=== PATIENT | male | born 1945 | race Caucasian/White ===

== ENCOUNTER → 2017-05-14 | Outpatient (CLI) | payer MEDICARE ==
[2017-05-14 08:04] LABS: Blood Urea Nitrogen 31 mg/dL (9-20); Non-African American GFR(MDRD) >60 (>60 ml/min/1.73 sqM)
--- NOTE | 2017-05-14 09:01 | CT ---
EXAMINATION TYPE: CT soft tissue neck w con DATE OF EXAM: 05/14/2017 HISTORY: Rt parotid cyst that was recently drained per patient. COMPARISON: NONE CT DLP: 769 mGycm. Automated Exposure Control for Dose Reduction was Utilized. TECHNIQUE: CT scan of the neck is performed with IV Contrast, patient injected with 100 mL of Omnipa que 300, axial images are obtained, coronal and sagittal reformatted images are reviewed. FINDINGS: Airway: There is some fullness centrally at level of the hard palate causing narrowing of the nasopha ryngeal airway below the fossa of Rosenmuller. This can be correlated with direct visualization if de sired. No obvious mass identified. Oropharyngeal airway is patent. Region of epiglottis and vallecula appears within normal limits. Hypo pharyngeal airway extending into trachea within normal limits. There is elongation AP diameter of the visualized trachea suggesting underlying COPD. There is mild t o moderate emphysematous change with scattered blebs throughout both lungs. There are slightly suspic ious right paratracheal lymph nodes, for reference is 1.1 x 1.0 cm lymph node on axial image 75. There is heterogeneous partially calcified lower pole right thyroid nodule with substernal extension measuring 1.7 cm on long axis on coronal image 43. Parotid/submandibular glands: In the posterior inferior right parotid gland there is oval lobulated f luid collection with some slightly irregular nodular peripheral enhancement measuring 3.0 cm transver sely by 1.6 cm in AP diameter by 2 cm craniocaudal diameter on axial image 32 and coronal image 44. S anna calcification in the left parotid gland is seen on axial image 24. Submandibular glands are sym metric and felt within normal limits. Carotid/Vascular Structures: There is mild to moderate calcified plaque in the aortic arch with more moderate to severe plaque extending into left subclavian artery causing stenosis just under 50%. Ther e is moderate mixed plaque at left carotid bulb with stenosis greater than 50% felt present seen best on sagittal image 66 and coronal image 50. Osseous Structures: Straightening of cervical spine is seen. There is moderate disc space narrowing a nd spurring C6-C7 level Other: There are scattered prominent but subcentimeter lymph nodes throughout the neck bilaterally. N o definitive greater than 1 cm neck adenopathy is seen. IMPRESSION: 1. There is slightly nodular irregular rim-enhancing fluid collection posterior inferior right paroti d gland, differential includes cystic mass or neoplasm versus infection/abscess as well as other etio logies such as lymphocele or even less likely brachial cleft cyst. Correlation with aspirate obtained during fine-needle aspiration is advised. 2. Note is made of 1.7 cm lower pole right thyroid nodule, follow-up thyroid ultrasound advised to fu rther evaluate and characterize. 3. Note is made of asymmetric moderate to severe plaque left carotid bulb causing significant stenosi s greater than 50% in the left internal carotid artery. This should be confirmed with carotid ultraso und. 4. Mild to moderate emphysematous change in visualized lung apices with borderline abnormal right par atracheal lymph node. No obvious visualized lung nodule or mass but consider follow-up chest CT to ex clude lung nodule or mass in high risk patient.
--- NOTE | 2017-05-14 10:33 | XR ---
Right knee HISTORY: Right knee pain 5 views of the right knee No comparisons There is tricompartmental marginal spurring, joint space loss is present especially in the medial com partment with subchondral sclerosis. Alignment is maintained. IMPRESSION: Osteoarthritis.
--- NOTE | 2017-05-14 10:35 | XR ---
Bilateral hips HISTORY: Bilateral hip pain 2 views of each hip are submitted. No comparisons Alignment, bone mineralization, joint spaces are maintained. IMPRESSION: No significant abnormalities evident.
== END | disposition home or self-care (01) ==
LOC: RADCTMAIN 07:25
PROVIDERS: ATTEND Otolaryngology
DX: E04.1 Nontoxic single thyroid nodule (principal); I65.22 Occlusion and stenosis of left carotid artery
CPT/HCPCS: 82565; 84520; 86235; 73521; 73562; 70491; 36415; Q9967

== ENCOUNTER → 2017-06-05 | Outpatient (CLI) | payer MEDICARE, OTHER ==
[2017-06-05 07:55] LABS: Blood Urea Nitrogen 13 mg/dL (9-20); Non-African American GFR(MDRD) >60 (>60 ml/min/1.73 sqM)
--- NOTE | 2017-06-05 08:47 | CT ---
EXAMINATION TYPE: CT chest wo/w con DATE OF EXAM: 06/05/2017 COMPARISON: CT neck exam May 14, 2017. HISTORY: Pulmonary nodules per order. Recent abnormal neck CT. CT DLP: 1147.9 mGycm. Automated Exposure Control for Dose Reduction was Utilized. TECHNIQUE: CT scan of the thorax is performed following without and with IV Contrast, patient inject ed with 100 mL of Omnipaque 300. FINDINGS: LUNGS: Mild to moderate emphysematous changes redemonstrated with apical scarring and bleb formation. There is redemonstration of AP diameter elongation of the trachea consistent with underlying COPD. T here is bibasilar linear scarring and/or atelectatic change. Mild central peribronchial thickening is consistent with underlying COPD. There is no pleural effusion or pneumothorax seen bilaterally. No s uspicious greater than 5 mm parenchymal nodule or mass is identified bilaterally. No worrisome consol idation or groundglass opacity is seen. MEDIASTINUM: There is redemonstration of 1.1 x 1.0 cm right paratracheal lymph node on axial image 14 . There are some scattered prominent but subcentimeter prevascular, AP window, and pericarinal lymph nodes. No definitive greater than 1 cm thoracic lymph nodes are present. No cardiomegaly or pericard ial effusion is seen. There is moderate left ventricular dilatation and mild to moderate left atrial dilatation. There is stable 1.5 cm heterogeneous posterior lower pole partially calcified right thyro id nodule axial image 10. Coronary artery calcification is present which is noted marker for coronary artery disease. OTHER: There is 7.5 cm simple appearing cyst upper pole level right kidney. There are smaller simple cyst upper pole level left kidney. Liver is hypodense relative to spleen on noncontrast images consis tent with diffuse fatty infiltration. Mild multilevel spurring in thoracic spine is present. IMPRESSION: Mild to moderate underlying emphysematous change without acute pulmonary process. No susp icious nodule or thoracic adenopathy is clearly identified.
== END | disposition home or self-care (01) ==
LOC: RADCTMAIN 07:16
PROVIDERS: ATTEND Otolaryngology
DX: J43.9 Emphysema, unspecified (principal)
CPT/HCPCS: 82565; 84520; 71270; 36415; Q9967

== ENCOUNTER → 2018-04-01 | Outpatient (CLI) | payer MEDICARE, OTHER | END | disposition home or self-care (01) | LOC: LABWHC1 09:54 | PROVIDERS: ATTEND Otolaryngology | DX: K11.7 Disturbances of salivary secretion (principal) | CPT/HCPCS: 36415; 86235 ==

== ENCOUNTER → 2018-04-09 | Outpatient (CLI) | payer MEDICARE, OTHER ==
[2018-04-09 08:14] LABS: Blood Urea Nitrogen 23 mg/dL (9-20)
--- NOTE | 2018-04-09 09:57 | CT ---
EXAMINATION TYPE: CT soft tissue neck w con DATE OF EXAM: 04/09/2018 9:15 AM COMPARISON: 05/14/2017 HISTORY: Localized swelling, mass, lung and neck CT DLP: 921 mGycm Automated exposure control for dose reduction was used. CONTRAST: CT scan of the neck is performed following with IV Contrast, patient injected with 100 ml mL of Isovu e 300. Axial images are obtained, coronal and sagittal reformatted images are reviewed. FINDINGS: Oropharyngeal airway is patent. Region of epiglottis and vallecula appears within normal limits. Hypo pharyngeal airway extending into trachea within normal limits. There is elongation AP diameter of the visualized trachea suggesting underlying COPD. There is mild t o moderate emphysematous change with scattered blebs throughout both lungs. There are slightly suspic ious right paratracheal lymph nodes, for reference is 1.1 x 1.0 cm lymph node which is stable. There is heterogeneous partially calcified lower pole right thyroid nodule with substernal extension measuring 1.7 cm on long axis which is stable. Parotid/submandibular glands: In the posterior inferior right parotid gland there is oval lobulated f luid collection with some slightly irregular nodular peripheral enhancement measuring 4.4 cm transver sely by 2.3 cm in AP diameter by 3.5 cm craniocaudal diameter. Single calcification in the left parot id gland is stable. Submandibular glands are symmetric and felt within normal limits. Carotid/Vascular Structures: There is mild to moderate calcified plaque in the aortic arch with more moderate to severe plaque extending into left subclavian artery causing stenosis just under 50%. Ther e is moderate mixed plaque at left carotid bulb with stenosis greater than 50% felt present. Osseous Structures: Straightening of cervical spine is seen. There is moderate disc space narrowing a nd spurring C6-C7 level Other: There are scattered prominent but subcentimeter lymph nodes throughout the neck bilaterally. N o definitive greater than 1 cm neck adenopathy is seen. IMPRESSION: 1. There is interval increase in size of the cystic right parotid mass now measuring 4.4 x 2.3 x 3.5 cm and previously measuring 3.0 x 1.6 x 2 cm. Shotty adenopathy in the region persists. 2. Stable right thyroid nodule. 3. Persistent atherosclerotic change of the vasculature as discussed above. 4. Correlate for COPD.
== END | disposition home or self-care (01) ==
LOC: RADCTMAIN 07:31
PROVIDERS: ATTEND Otolaryngology
DX: K11.6 Mucocele of salivary gland (principal); R59.0 Localized enlarged lymph nodes; E04.1 Nontoxic single thyroid nodule
CPT/HCPCS: 82565; 84520; 70491; 36415; Q9967

== ENCOUNTER → 2018-04-30 | Outpatient (CLI) | payer MEDICARE, OTHER ==
--- NOTE | 2018-04-30 07:51 | US ---
EXAMINATION TYPE: US thyroid st tissue head/neck DATE OF EXAM: 04/30/2018 COMPARISON: CT dated 04/09/2018 CLINICAL HISTORY: E04.1 Thyroid nodule. GLAND SIZE: Right Lobe: 5.7 x 2.9 x 2.6 cm Overall Parenchyma: heterogenous Left Lobe: 4.6 x 2.1 x 1.9 cm Overall Parenchyma: heterogeneous Isthmus Thickness: 0.5 cm NODULES RIGHT: # of nodules measured on right: 1 1. 1.5 X 1.4 x 1.5 cm echogenic solid nodule at the lower pole with poorly defined margins; . This nodule is wider than tall and shows no intranodular vascularity. Prior size: no prior ultrasound, measures 1.[address] LEFT: # of nodules measured on left: 0 ISTHMUS: # of nodules measured in the isthmus: 0 Bilateral neck scanned, no evidence of lymphadenopathy. Technically difficult exam due to short neck and thyroid extending below sternum. IMPRESSION: 1.5 cm echogenic right thyroid nodule correlates to a BI-RADS 3-mildly suspicious right thyroid nodul e. Recommendations are as follows per consensus criteria: Mildly Suspicious: FNA if ? 2.5 cm; Follow if ? 1.5 cm.
== END | disposition home or self-care (01) ==
LOC: RADUSWWP 06:50
PROVIDERS: ATTEND Otolaryngology
DX: E04.1 Nontoxic single thyroid nodule (principal)
CPT/HCPCS: 76536

== ENCOUNTER → 2018-05-14 | Outpatient (CLI) | payer MEDICARE, OTHER ==
--- NOTE | 2018-05-14 08:17 | MR ---
EXAMINATION TYPE: MR knee RT wo con DATE OF EXAM: 05/14/2018 COMPARISON: None HISTORY: Pain in right knee TECHNIQUE: Multiplanar, multisequence imaging of the right knee is performed without IV contrast. FINDINGS: MEDIAL MENISCUS: There is linear signal and oblique angle extending towards inferior articular surfac e of the posterior horn medial meniscus compatible with a tear. Anterior horn of the medial meniscus is normal. LATERAL MENISCUS: Anterior and posterior horns are intact without tear. CRUCIATE LIGAMENTS: The anterior and posterior cruciate ligaments are intact and unremarkable. COLLATERAL LIGAMENTS: The medial collateral ligament and lateral collateral ligament complex are inta ct and unremarkable. EXTENSOR MECHANISM: Visualized quadriceps and patellar tendons are intact. EFFUSION: Minimal joint effusion may be present. POPLITEAL CYST: No popliteal/thomas cyst. There is a cystic area posterior to the posterior cruciate ligament may be a posterior synovial cyst or meniscal cyst. This is extension towards the posterior t ibia. Some signal abnormality within the posterior tibia is present. Infection is unlikely but should be considered. TRICOMPARTMENT SPACES: There is narrowing of the medial compartment joint space. Lateral compartment joint space has mild narrowing. Patellofemoral joint space is narrowed. CARTILAGE: There is thinning of the articular cartilage. This is greater along the lateral patella an d lateral femoral condyle. Signal abnormality within the anterior femoral condyle is present. BONE MARROW SIGNAL: Signal abnormality is discussed under popliteal cyst and cartilage. No additional abnormal osseous signal is evident. OTHER: No additional significant abnormality is appreciated. IMPRESSION: Oblique tear posterior horn medial meniscus. 2. Minimal joint effusion. 3. Osteoarthritic degenerative change. 4. The osteoarthritic degenerative change along the lateral patella and lateral femoral condyle appea rs more advanced underlying osseous changes are present. 5. Suspected meniscal cyst posterior medial knee. Underlying osseous abnormality at the posterior tib ia is present as well. Other etiologies should be considered including infection.
== END ==
LOC: RADMRIMAIN 06:05
PROVIDERS: ATTEND Orthopaedic Surgery
DX: S83.241A Other tear of medial meniscus, current injury, right knee, initial encounter (principal); M25.461 Effusion, right knee; M17.11 Unilateral primary osteoarthritis, right knee

== ENCOUNTER → 2018-05-25 | Outpatient (CLI) | payer MEDICARE, OTHER ==
[2018-05-25 08:51] LABS: ALT 48 U/L (21-72); AST 27 U/L (17-59); Alkaline Phosphatase 67 U/L (38-126); Anion Gap 10 mmol/L; Blood Urea Nitrogen 19 mg/dL (9-20); Carbon Dioxide 25 mmol/L (22-30); Chloride 106 mmol/L (98-107); Cholesterol 146 mg/dL (<200); Glucose 115 mg/dL (74-99); HDL Cholesterol 38 mg/dL (40-60); LDL Cholesterol,Calculated 77 mg/dL (0-99); Potassium 4.5 mmol/L (3.5-5.1); Sodium 141 mmol/L (137-145); Total Bilirubin 0.4 mg/dL (0.2-1.3); Total Protein 7.6 g/dL (6.3-8.2); Triglycerides 157 mg/dL (<150)
[2018-05-25 17:41] LABS: Hemoglobin A1C 6.2 % (4.0-6.0)
== END | disposition home or self-care (01) ==
LOC: LABWHC1 07:58
PROVIDERS: ATTEND Internal Medicine Endocrinology, Diabetes & Metabolism
DX: E11.65 Type 2 diabetes mellitus with hyperglycemia (principal)
CPT/HCPCS: 36415; 80053; 80061; 82043; 82570; 83036

== ENCOUNTER → 2018-05-28 | Outpatient (CLI) | payer MEDICARE, OTHER ==
[2018-05-28 08:52] LABS: Basophils # (A) 0.1 k/uL (0-0.2); Basophils % (A) 1 %; Eosinophils # (A) 0.2 k/uL (0-0.7); Eosinophils % (A) 2 %; HCT 42.5 % (39.0-53.0); HGB 14.4 gm/dL (13.0-17.5); Lymphocytes # (A) 3.5 k/uL (1.0-4.8); Lymphocytes % (A) 36 %; MCH 29.3 pg (25.0-35.0); MCHC 33.9 g/dL (31.0-37.0); MCV 86.6 fL (80.0-100.0); Mean Platelet Volume 6.2; Monocytes # (A) 0.8 k/uL (0-1.0); Monocytes % (A) 8 %; Neutrophils # (A) 4.9 k/uL (1.3-7.7); Neutrophils % (A) 50 %; Platelet Count 246 k/uL (150-450); RBC 4.91 m/uL (4.30-5.90); RDW 13.8 % (11.5-15.5); WBC 9.7 k/uL (3.8-10.6)
== END | disposition home or self-care (01) ==
LOC: LABPAT 07:55
PROVIDERS: ATTEND Orthopaedic Surgery
DX: Z01.818 Encounter for other preprocedural examination (principal); Z01.812 Encounter for preprocedural laboratory examination; M23.91 Unspecified internal derangement of right knee
CPT/HCPCS: 36415; 85025; 93005

== ENCOUNTER 2018-06-16 08:48 | Day surgery (SDC) | payer MEDICARE, OTHER ==
[2018-06-11 10:43] VITALS: BMI 37.1
--- NOTE | 2018-06-15 14:18 | HP ---
HISTORY AND PHYSICAL DATE OF SURGERY: 06/16/2018 Sharad Moore is a 72-year-old patient seen with progressive right knee pain. We discussed treatment options. He elected to proceed with arthroscopy. Consent was obtained. PAST MEDICAL HISTORY: Hypertension, kex-[id number]-xmpssooih diabetes, gastroesophageal reflux disease, hyperlipidemia. PAST SURGICAL HISTORY: Noncontributory. DAILY MEDICATIONS: Hydrochlorothiazide, metformin, pravastatin. ALLERGIES: None. SOCIAL HISTORY: Patient smokes cigarettes. PHYSICAL EVALUATION OF THE RIGHT KNEE: Range of motion is 0 to 120 degrees. Tenderness medial joint line. Positive medial Gita's, crepitus medial patellofemoral compartments with range of motion. Pain with patellofemoral compression. Ligaments stable. Hip rotation without pain. Distal neurovascular exam intact. RIGHT KNEE RADIOGRAPHS: Radiographs revealed moderate osteoarthritis and MRI of the right knee revealed medial meniscal tear. IMPRESSION: 1. Internal derangement, right knee with medial meniscal tear. 2. Right knee osteoarthritis. PLAN: Right knee arthroscopy with partial meniscectomy and debridement. MMODL / IJN: [id number] /
[~2018-06-16 08:48] MED LIST: HYDROmorphone 0.5 MG/0.5 ML SYRINGE IVP PRN; LACTATED RINGERS 1,000 ML IV SCH; ONDANSETRON 4 MG/2 ML VIAL IVP ONE; ceFAZolin IN SWFI 2 GM/20 ML SYRINGE IVP ONE; fentaNYL (PF) 50 MCG/ML 2 ML AMP IV PRN
[2018-06-16] MEDS ORDERED: LIDOCAINE 1% 20 ML VIAL (10MG/ML) FOR IV START INTRADERMA ONE (09:40)
[2018-06-16 09:55] LABS: Glucose,Whole Blood 122 mg/dL (75-99)
[2018-06-16] MEDS ORDERED: MIDAZOLAM 2 MG/2 ML VIAL ONE (11:27)
[2018-06-16] MEDS ORDERED: LIDOCAINE 1% INJ 10MG/ML (20 ML MDV) ONE (11:27)
[2018-06-16] MEDS ORDERED: SUCCINYLCHOLINE CHLORIDE 100 MG/5 ML SYR IV ONE (11:27)
[2018-06-16] MEDS ORDERED: fentaNYL (PF) 50 MCG/ML 2 ML AMP ONE (11:27)
[2018-06-16] MEDS ORDERED: PROPOFOL 10 MG/ML 20 ML VIAL IV ONE (11:27)
[2018-06-16] MEDS ORDERED: BUPIVACAIN-EPI 0.25%-1:200,000 30 ML VIAL INTRAARTIC ONE ×2 (11:45→11:59)
--- NOTE | 2018-06-16 12:18 | P.OP ---
Date of Procedure: 06/16/18 Preoperative Diagnosis: Internal derangement right knee Postoperative Diagnosis: 1. Tear medial and lateral meniscus right knee 2. Grade 3 chondromalacia medial femoral condyle right knee 3. Grade 2 chondromalacia lateral femoral condyle right knee 4. Grade 3 chondromalacia patella right knee 5. Reactive synovitis medial, lateral and suprapatellar compartments right knee Procedure(s) Performed: 1. Arthroscopic partial medial and lateral meniscectomy 2. Arthroscopic chondroplasty medial femoral condyle right knee 3. Arthroscopic chondroplasty lateral femoral condyle right knee 4. Arthroscopic chondroplasty patella right knee 5. Arthroscopic partial synovectomy medial, lateral and suprapatellar compartments right knee Anesthesia: GETA, local Surgeon: Abelino Velazquez Estimated Blood Loss (ml): 5 Pathology: none sent Condition: stable Disposition: PACU Indications for Procedure: 72-year-old patient seen with progressive right knee pain. After having treatment options discussed, he elected to proceed with arthroscopy. Operative Findings: See description of procedure Description of Procedure: Patient was taken to the operative suite. Patient underwent a general anesthetic by the department of anesthesia. Patient was given preoperative antibiotics. The right lower extremity was placed in a well-padded arthroscopic leg wolf. The right leg was prepped and draped in the normal sterile orthopedic fashion. A lateral parapatellar and suprapatellar incision was made. Trochars were inserted. Arthroscopy was initiated. Suprapatellar pouch revealed diffuse thick reactive synovitis. The patellofemoral joint appeared to articulate congruently. There was grade 3 chondromalacia of the patella with some osteochondral tears present. The scope was guided into the medial gutter. No loose bodies or plica were identified. The scope was then guided into the medial compartment. A medial parapatellar incision was made. Trocar inserted followed by probe. There was a complex tear involving the posterior horn medial meniscus. There were grade 3 chondromalacia changes of the lateral femoral condyle with osteochondral tears present. There was diffuse thick reactive synovitis anteriorly. I performed a partial medial meniscectomy down to stable tissue. I performed a chondroplasty of the medial femoral condyle down to stable tissue. I performed a partial synovectomy decompressing the reactive synovitis. The residual meniscus was stable. The residual osteochondral surface was stable. There was good decompression of the synovitis. Scope and probe were then guided into the intercondylar notch. Cruciates were identified, probed and found to be stable. The scope and probe were then guided into lateral compartment. There was a radial tear midbody lateral meniscus. There were grade 2 chondromalacia changes of the lateral femoral condyle with osteochondral tears. There was reactive synovitis anteriorly. I performed a partial lateral meniscectomy down to stable tissue. I performed a chondroplasty of the lateral femoral condyle down to stable tissue. I performed a partial synovectomy decompressing the reactive synovitis. The residual meniscus and osteochondral surface was stable. There was good decompression of the synovitis. The scope was in guided back into the suprapatellar compartment. I introduced a motorized shaver into the suprapatellar compartment. I debrided some piecemeal fragments of meniscus I encountered. I performed a chondroplasty of the patella down to stable tissue. I performed a partial synovectomy decompressing the reactive synovitis within the suprapatellar compartment. The shaver was removed. The residual osteochondral surface of the patella was stable. I took one more look on the entire knee, no residual debris. Instruments were now removed from the joint. The joint was infiltrated with .25% Marcaine. Steri-Strips were applied to the portal sites. Sterile dressings were applied. The patient was placed into a [place] hose. No tourniquet was utilized. The patient was awakened, transferred to a bed and taken to recovery stable satisfactory condition.
[2018-06-16 12:26] VITALS: TEMP 97
[2018-06-16 12:40] VITALS: RESP 16
[2018-06-16 13:09] VITALS: PULSE 61
[2018-06-16 13:11] LABS: Glucose,Whole Blood 107 mg/dL (75-99)
[2018-06-16 14:09] VITALS: BP 127/74
== END 2018-06-16 14:45 | disposition home or self-care (01) ==
LOC: OR 08:48
PROVIDERS: ATTEND Orthopaedic Surgery
DX: S83.241A Other tear of medial meniscus, current injury, right knee, initial encounter (principal); S83.281A Other tear of lateral meniscus, current injury, right knee, initial encounter; X58.XXXA Exposure to other specified factors, initial encounter; M22.41 Chondromalacia patellae, right knee; M65.861 Other synovitis and tenosynovitis, right lower leg; I10 Essential (primary) hypertension; E11.9 Type 2 diabetes mellitus without complications; Z79.84 Long term (current) use of oral hypoglycemic drugs; K21.9 Gastro-esophageal reflux disease without esophagitis; F17.210 Nicotine dependence, cigarettes, uncomplicated; G47.33 Obstructive sleep apnea (adult) (pediatric); E78.5 Hyperlipidemia, unspecified; Z79.899 Other long term (current) drug therapy; Z79.1 Long term (current) use of non-steroidal anti-inflammatories (NSAID)
CPT/HCPCS: 29880; J2250; J2405; J2001; J3010; J0330; J2704; J1170; J0690

== ENCOUNTER → 2020-05-17 | Outpatient (CLI) | payer MEDICARE, OTHER ==
--- NOTE | 2020-05-17 13:23 | US ---
EXAMINATION TYPE: US thyroid st tissue head/neck DATE OF EXAM: 05/17/2020 COMPARISON: US 04/30/18 CLINICAL HISTORY: E04.1 thyroid nodule. GLAND SIZE: Right Lobe: 4.1 x 1.9 cm. cm Left Lobe: 4.8 x 2.4 cm Isthmus Thickness: 0.4 cm NODULES RIGHT: # of nodules measured on right: 2 1. 1.3 X 1.0 x 1.0 cm isoechoic nodule at the lower pole with poorly defined margins; . This nodul e is wider than tall and shows no intranodular vascularity. Prior size: 1.5 x 1.4 x 1.5 cm 2. 0.6 X 0.5 x 0.4 cm hypoechoic solid nodule at the upper pole with poorly defined margins; . This nodule is wider than tall and shows intranodular vascularity. Prior size: Not seen previously LEFT: # of nodules measured on left: 0 ISTHMUS: # of nodules measured in the isthmus: 0 Bilateral neck scanned, no evidence of lymphadenopathy. IMPRESSION: Dominant right thyroid nodule stable in size relative to the prior exam.
== END | disposition home or self-care (01) ==
LOC: RADUSWWP 12:47
PROVIDERS: ATTEND Otolaryngology
DX: E04.1 Nontoxic single thyroid nodule (principal)
CPT/HCPCS: 76536

== ENCOUNTER 2020-06-25 22:04 | Inpatient (IN) | payer MEDICARE, OTHER ==
[2020-06-25] MEDS ORDERED: DEXTROSE 5% IN WATER 100 ML with AMIODARONE 150 MG IV ONE (22:24)
[2020-06-25 22:26] LABS: Glucose,Whole Blood 388 mg/dL (75-99)
[2020-06-25] MEDS: MIDAZOLAM 1 MG/ML 5 ML VIAL IV PRN ×2 (22:33→23:54)
[2020-06-25] MEDS: DEXTROSE 5% IN WATER 250 ML with AMIODARONE 300 MG IV ONE ×2 (22:34→23:32)
[2020-06-25 22:40] LABS: ABG Base Excess -19.7 mmol/L; ABG HCO3 14 mmol/L (21-25); ABG Oxygen Saturation 95.3 % (94-97); ABG PO2 143 mmHg (83-108); ABG TCO2 16 mmol/L (19-24); Allen Test Performed? Yes
--- NOTE | 2020-06-25 22:41 | XR ---
EXAMINATION TYPE: XR chest 1V portable DATE OF EXAM: 06/25/2020 COMPARISON: NONE HISTORY: Cardiac arrest TECHNIQUE: Single view FINDINGS: Heart is enlarged. There is diffuse pulmonary edema. Endotracheal tube is 3.5 cm from the c caden. There are chest leads. IMPRESSION: Moderately severe pulmonary edema is consistent with acute heart failure.
[2020-06-25] MEDS ORDERED: AMIODARONE 360 MG in DEXTROSE 5% IN WATER 200 ML IV ONE ×2 (22:43)
[2020-06-25 22:46] LABS: HCT 50.8 % (39.0-53.0); HGB 15.6 gm/dL (13.0-17.5); Hypochromasia Marked; MCH 28.8 pg (25.0-35.0); MCHC 30.8 g/dL (31.0-37.0); Mean Platelet Volume 7.9; Platelet Count 188 k/uL (150-450); RBC 5.43 m/uL (4.30-5.90); RDW 13.8 % (11.5-15.5); WBC 16.9 k/uL (3.8-10.6)
[2020-06-25 22:55] LABS: Albumin 3.9 g/dL (3.5-5.0); Calcium 9.7 mg/dL (8.4-10.2); Total Bilirubin 0.5 mg/dL (0.2-1.3); Total Protein 7.5 g/dL (6.3-8.2)
[2020-06-25 22:57] LABS: MCV 93.5 fL (80.0-100.0)
[2020-06-25 22:58] LABS: Partial Thromboplastin Time 30.1 sec (22.0-30.0); Prothrombin Time 10.6 sec (9.0-12.0)
[2020-06-25] MEDS ORDERED: EPINEPHrine 10 ML SYRINGE (0.1 MG/ML) ONE (23:00)
[2020-06-25] MEDS ORDERED: MIDAZOLAM 1 MG/ML 5 ML VIAL ONE (23:00)
[2020-06-25 23:11] LABS: Eosinophils # (M) 0.17 k/uL (0-0.7); Lymphocytes # (M) 11.15 k/uL (1.0-4.8); Monocytes # (M) 1.69 k/uL (0-1.0); Neutrophils # (M) 3.89 k/uL (1.3-7.7); Neutrophils % (M) 23 %; Nucleated Red Blood Cells 0 /100 WBC (0-0); Total Cells Counted 100
[2020-06-25] MEDS: fentaNYL (PF) 1,000 MCG in SODIUM CHLORIDE 0.9% 80 ML IV SCH (23:17)
--- NOTE | 2020-06-25 23:22 | CT ---
EXAMINATION TYPE: CT brain wo con DATE OF EXAM: 06/25/2020 COMPARISON: None HISTORY: Cardiac arrest, ams CT DLP: 1170.4 mGycm Automated exposure control for dose reduction was used. There is cerebral cortical atrophy. There is no mass effect nor midline shift. There is no sign of in tracranial hemorrhage. Calvarium is intact. There is mucosal thickening left side of the sphenoid sin us. This is consistent with sinusitis. I see no focal bone destruction. IMPRESSION: Cerebral atrophy. No acute intracranial abnormality.
[2020-06-25] MEDS ORDERED: NOREPINEPHRINE 32 MG in SODIUM CHLORIDE 0.9% 218 ML IV ONE (23:23)
[2020-06-25] MEDS ORDERED: NOREPINEPHRINE 4 MG in SODIUM CHLORIDE 0.9% 250 ML IV ONE (23:31)
--- NOTE | 2020-06-25 23:31 | ED ---
CPR HPI - General Stated Complaint: CPR - History of Present Illness Initial Comments: Sharad is a 74 yo male who is brought to the ER today via EMS with CPR in progress. Per EMS they were called for shortness of breath. Upon their arrival the patient was diaphoretic hypoxic with oxygen saturations in the 60s, he was placed on CPAP with minimal improvement in route to the hospital he became more hypoxic bradycardic and then lost pulses. CPR was initiated approximately 2 min utes prior to arrival in the emergency department. - Related Data Home Medications Medication Instructions Recorded Confirmed Aspirin [Adult Low Dose Aspirin EC] 81 mg PO DAILY 06/11/18 06/25/20 Cetirizine HCl 10 mg PO DAILY 06/11/18 06/25/20 HYDROcodone/APAP 7.5-325MG [[place] 1 tab PO TID PRN 06/11/18 06/25/20 7.5-325] Ibuprofen 800 mg PO Q6HR PRN 06/11/18 06/25/20 Losartan Potassium 100 mg PO DAILY 06/11/18 06/25/20 Montelukast [Singulair] 10 mg PO HS 06/11/18 06/25/20 Omeprazole 20 mg PO DAILY 06/11/18 06/25/20 Pravastatin Sodium [Pravachol] 10 mg PO HS 06/11/18 06/25/20 amLODIPine BESYLATE [Norvasc] 10 mg PO DAILY 06/11/18 06/25/20 glipiZIDE [Glucotrol] 10 mg PO TID 06/11/18 06/25/20 metFORMIN HCL 1,000 mg PO BID 06/11/18 06/25/20 Glucosam/Chond/Hyalu/Cf Borate 2 tab PO DAILY 06/25/20 06/25/20 [Move Free [facility] Tablet] L.acidoph,Paracasei, B.lactis 1 cap PO DAILY 06/25/20 06/25/20 [Probiotic] [place]-3 Fatty Acids/Fish Oil [Fish 2 cap PO DAILY 06/25/20 06/25/20 Oil 1,000 mg Softgel] Ranitidine HCl [Zantac] 300 mg PO HS 06/25/20 06/25/20 hydroCHLOROthiazide 25 mg PO DAILY 06/25/20 06/25/20 Allergies Allergy/AdvReac Type Severity Reaction Status Date / Time No Known Allergies Allergy Verified 06/16/18 09:33 Review of Systems ROS Statement: Those systems with pertinent positive or pertinent negative responses have been documented in the HPI. ROS Other: All systems not noted in ROS Statement are negative. Past Medical History Past Medical History: Diabetes Mellitus, GERD/Reflux, Hyperlipidemia, Hypertension, Osteoarthritis (OA), Pulmonary Embolus (PE), Sleep Apnea/CPAP/BIPAP Additional Past Medical History / Comment(s): uses CPAP; PE about 8 yrs ago History of Any Multi-Drug Resistant Organisms: None Reported Past Surgical History: Heart Catheterization, Orthopedic Surgery Additional Past Surgical History / Comment(s): Cataracts, Colonoscopy; L knee scope Past Anesthesia/Blood Transfusion Reactions: No Reported Reaction Past Psychological History: No Psychological Hx Reported Past Alcohol Use History: Rare Additional Past Alcohol Use History / Comment(s): quit smoking 5 years ago; prev. smoked from teens until 67 yrs old 1-2 ppd Past Drug Use History: None Reported - Past Family History Mother Family Medical History: No Reported History General Exam - General Exam Comments Initial Comments: Physical Exam GENERAL: Unresponsive, cyanotic HENT: Normocephalic, Atraumatic. EYES: Pupils 5 mm unreactive PULMONARY: Crackles in all lung clark CARDIOVASCULAR: Pulseless upon arrival ABDOMEN: Soft and nontender with normal bowel sounds. SKIN: Cyanotic : Normal external genitalia, circumcised NEUROLOGIC: Unresponsive Did have gag MUSCULOSKELETAL: No significant edema PSYCHIATRIC: Unresponsive AFTER ROSC Physical Exam GENERAL: Intubated, requiring sedation HENT: Normocephalic, Atraumatic. EYES: Pupils reactive PULMONARY: Ventilator sounds Crrackles in all lung clark CARDIOVASCULAR: Irregular ABDOMEN: Obese SKIN: Skin is clear with no lesions or rashes and otherwise unremarkable. : Normal external genitalia NEUROLOGIC: Requiring sedation, moving extremities, coughing Sedated for intubation MUSCULOSKELETAL: No significant edema PSYCHIATRIC: Unable to assess Course Vital Signs 06/25/20 06/25/20 06/25/20 22:06 22:26 22:43 Temperature 97.5 F L Pulse Rate [ 76 60 Irrigation Supervisor ] Respiratory 12 17 Rate Blood Pressure 140/84 110/63 [Right Arm] O2 Sat by Pulse 88 L 95 Oximetry 06/25/20 06/25/20 06/25/20 23:00 23:20 23:30 Temperature 97.7 F Pulse Rate [ 67 80 77 Irrigation Supervisor ] Respiratory 19 23 22 Rate Blood Pressure 98/56 90/52 83/50 [Right Arm] O2 Sat by Pulse 97 96 96 Oximetry 06/26/20 06/26/20 00:00 00:15 Temperature 97.8 F Pulse Rate [ 74 72 Irrigation Supervisor ] Respiratory 25 H 25 H Rate Blood Pressure 91/63 91/63 [Right Arm] O2 Sat by Pulse 94 L 94 L Oximetry Procedures - [place] Protocol (Time Out) Procedure Performed:: central line Performing Provider: Kyung Zarate Nurse: Allie Lopez Timeout Date: 06/26/20 Timeout Time: 01:10 Patient Identification (2 identifiers required): Chart, Arm Band Site: right IJ Site Marked: Yes Final Confirmation: Procedure, Site, Laterality, Patient Position, Special Equipment - ABG Interpretation Ph: 6.87 PCO2: 74 PO2: 143 Bicarbonate: 14 Interpretation: respiratory acidosis - Central Line Placement Right IJ Consent Obtained: verbal consent (From at bedside) Patient Placed on Monitor/Pulse Ox: Yes MD Prep: mask, gown, gloves Central Line Prep: Chlorhexidine scrub, sterile drapes applied Local Anesthesia Used: Lidocaine 1% Amount of Anesthesia Used (mls): 3 Ultrasound Used for Placement: Yes Central Line Lumen Inserted: triple Bloods Obtained for Lab: No Central Line Position: good blood return, all ports aspirated, flushed, capped, sutured in place with 3-0 nylon Dressing Applied: Tegaderm Post Procedure X-Ray: tip of catheter in good position Patient Tolerated Procedure: well Complications: none - Intubation Laryngoscope: fiber optic video scope Assist Device Used: fiber optic device ET Tube Size: 7.5 ET Tube Uncuffed: No Tube Secured Depth (cm): 23 Tube Secured Location: teeth Tube Placement Confirmation: visualized tube passing through cords, equal breath sounds bilaterally, no breath sounds over epigastrium, confirmation by capnometry Patient Tolerated Procedure: well - IO Right Consent Obtained: emergent situation IO Instrument Used to Penetrate the Cortex: battery powered IO drill Complications: none Medical Decision Making - Medical Decision Making The patient was seen and evaluated immediately upon arrival the emergency department Patient had called 911 for shortness of breath on EMS arrival he was hypoxic in route he bradyed down and lost pulses CPR was initiated he received 1 dose of ep inephrine prior to arrival in the emergency department however in transfer from EMS [facility] to [facility] his IV access was removed On arrival in the emergency department resuscitation was continued per ACLS protocol Definitive airway was established with a 75 ET tube, there was an airway obstruction noted, patient's dentures were in the back of his mouth obstructing the airway. Those were removed prior to intubation. Due to lack of IV access a right tibial IO was placed and a single dose of epinephrine was given through this IO Return of spontaneous circulation was noted after epinephrine and approximately 8 minutes of CPR Oxygenation was noted to be improving after intubation Bedside ultrasound reveals good cardiac motion, no dilatation of the right ventricle to indicate a massive her submassive pulmonary embolism - therefore we will await imaging before we start any heparin or consider TPA She was noted to have dysrhythmia on the EKG concerning for A. fib, amiodarone was ordered for post resuscitation arrhythmia Patient remained hemodynamically stable and was transferred to CT for imaging. CT imaging revealed no pulmonary embolism, evidence of severe pulmonary edema was noted CT of the brain revealed no evidence of acute intracranial pathology no bleeds Heart failure pathway was initiated The patient was noted to become hypotensive, peripheral vasopressors were initiated Events of hospitalization and need for central access were discussed with the and daughter bedside who consent to any necessary procedures A right IJ central line was placed without complication, pressors continued to be infused The right tibial IO was removed and dressing was placed Troponin had not resulted however decision was made to initiate treatment with heparin given that the patient had dysrhythmias after CPR Patient care was discussed with the laborer tan house Dr. Grey who accepts the patient to the ICU Patient care was discussed with Dr. Rai who accepts the admission Patient was transferred to ICU with levophed, Heparin, Amiodarone - Lab Data Result diagrams: 06/25/20 22:36 06/25/20 22:36 Lab Results 06/25/20 06/25/20 06/25/20 Range/Units 22:25 22:31 22:36 WBC 16.9 H (3.8-10.6) k/uL RBC 5.43 (4.30-5.90) m/uL Hgb 15.6 (13.0-17.5) gm/dL Hct 50.8 (39.0-53.0) % MCV 93.5 D (80.0-100.0) fL MCH 28.8 (25.0-35.0) pg MCHC 30.8 L (31.0-37.0) g/dL RDW 13.8 (11.5-15.5) % Plt Count 188 (150-450) k/uL Neutrophils % (Manual) 23 % Lymphocytes % (Manual) 66 % Monocytes % (Manual) 10 % Eosinophils % (Manual) 1 % Neutrophils # (Manual) 3.89 (1.3-7.7) k/uL Lymphocytes # (Manual) 11.15 H (1.0-4.8) k/uL Monocytes # (Manual) 1.69 H (0-1.0) k/uL Eosinophils # (Manual) 0.17 (0-0.7) k/uL Nucleated RBCs 0 (0-0) /100 WBC Manual Slide Review Performed Hypochromasia Marked PT (9.0-12.0) sec INR (<1.2) APTT (22.0-30.0) sec Sample Site lbrac ABG pH 6.87 L* (7.35-7.45) ABG pCO2 74 H* (35-45) mmHg ABG pO2 143 H (83-108) mmHg ABG HCO3 14 L (21-25) mmol/L ABG Total CO2 16 L (19-24) mmol/L ABG O2 Saturation 95.3 (94-97) % ABG Base Excess -19.7 mmol/L Abdirizak Test Yes FiO2 100 % Sodium (137-145) mmol/L Potassium (3.5-5.1) mmol/L Chloride (98-107) mmol/L Carbon Dioxide (22-30) mmol/L Anion Gap mmol/L BUN (9-20) mg/dL Creatinine (0.66-1.25) mg/dL Est GFR (CKD-EPI)AfAm (>60 ml/min/1.73 sqM) Est GFR (CKD-EPI)NonAf (>60 ml/min/1.73 sqM) Glucose (74-99) mg/dL POC Glucose (mg/dL) 388 H (75-99) mg/dL POC Glu Housekeeper Home ID Skylar Mcdonald Calcium (8.4-10.2) mg/dL Magnesium (1.6-2.3) mg/dL Total Bilirubin (0.2-1.3) mg/dL AST (17-59) U/L ALT (4-49) U/L Alkaline Phosphatase (38-126) U/L Troponin I (0.000-0.034) ng/mL NT-Pro-B Natriuret Pep pg/mL Total Protein (6.3-8.2) g/dL Albumin (3.5-5.0) g/dL 06/25/20 06/25/20 06/25/20 Range/Units 22:36 22:36 22:36 WBC (3.8-10.6) k/uL RBC (4.30-5.90) m/uL Hgb (13.0-17.5) gm/dL Hct (39.0-53.0) % MCV (80.0-100.0) fL MCH (25.0-35.0) pg MCHC (31.0-37.0) g/dL RDW (11.5-15.5) % Plt Count (150-450) k/uL Neutrophils % (Manual) % Lymphocytes % (Manual) % Monocytes % (Manual) % Eosinophils % (Manual) % Neutrophils # (Manual) (1.3-7.7) k/uL Lymphocytes # (Manual) (1.0-4.8) k/uL Monocytes # (Manual) (0-1.0) k/uL Eosinophils # (Manual) (0-0.7) k/uL Nucleated RBCs (0-0) /100 WBC Manual Slide Review Hypochromasia PT 10.6 (9.0-12.0) sec INR 1.0 (<1.2) APTT 30.1 H (22.0-30.0) sec Sample Site ABG pH (7.35-7.45) ABG pCO2 (35-45) mmHg ABG pO2 (83-108) mmHg ABG HCO3 (21-25) mmol/L ABG Total CO2 (19-24) mmol/L ABG O2 Saturation (94-97) % ABG Base Excess mmol/L Abdirizak Test FiO2 % Sodium 138 (137-145) mmol/L Potassium 5.0 (3.5-5.1) mmol/L Chloride 106 (98-107) mmol/L Carbon Dioxide 13 L (22-30) mmol/L Anion Gap 19 mmol/L BUN 21 H (9-20) mg/dL Creatinine 1.20 (0.66-1.25) mg/dL Est GFR (CKD-EPI)AfAm 70 (>60 ml/min/1.73 sqM) Est GFR (CKD-EPI)NonAf 60 (>60 ml/min/1.73 sqM) Glucose 324 H (74-99) mg/dL POC Glucose (mg/dL) (75-99) mg/dL POC Glu Housekeeper Home ID Calcium 9.7 (8.4-10.2) mg/dL Magnesium 2.0 (1.6-2.3) mg/dL Total Bilirubin 0.5 (0.2-1.3) mg/dL AST 40 (17-59) U/L ALT 31 (4-49) U/L Alkaline Phosphatase 96 (38-126) U/L Troponin I 0.017 (0.000-0.034) ng/mL NT-Pro-B Natriuret Pep pg/mL Total Protein 7.5 (6.3-8.2) g/dL Albumin 3.9 (3.5-5.0) g/dL 06/25/20 Range/Units 22:36 WBC (3.8-10.6) k/uL RBC (4.30-5.90) m/uL Hgb (13.0-17.5) gm/dL Hct (39.0-53.0) % MCV (80.0-100.0) fL MCH (25.0-35.0) pg MCHC (31.0-37.0) g/dL RDW (11.5-15.5) % Plt Count (150-450) k/uL Neutrophils % (Manual) % Lymphocytes % (Manual) % Monocytes % (Manual) % Eosinophils % (Manual) % Neutrophils # (Manual) (1.3-7.7) k/uL Lymphocytes # (Manual) (1.0-4.8) k/uL Monocytes # (Manual) (0-1.0) k/uL Eosinophils # (Manual) (0-0.7) k/uL Nucleated RBCs (0-0) /100 WBC Manual Slide Review Hypochromasia PT (9.0-12.0) sec INR (<1.2) APTT (22.0-30.0) sec Sample Site ABG pH (7.35-7.45) ABG pCO2 (35-45) mmHg ABG pO2 (83-108) mmHg ABG HCO3 (21-25) mmol/L ABG Total CO2 (19-24) mmol/L ABG O2 Saturation (94-97) % ABG Base Excess mmol/L Abdirizak Test FiO2 % Sodium (137-145) mmol/L Potassium (3.5-5.1) mmol/L Chloride (98-107) mmol/L Carbon Dioxide (22-30) mmol/L Anion Gap mmol/L BUN (9-20) mg/dL Creatinine (0.66-1.25) mg/dL Est GFR (CKD-EPI)AfAm (>60 ml/min/1.73 sqM) Est GFR (CKD-EPI)NonAf (>60 ml/min/1.73 sqM) Glucose (74-99) mg/dL POC Glucose (mg/dL) (75-99) mg/dL POC Glu Housekeeper Home ID Calcium (8.4-10.2) mg/dL Magnesium (1.6-2.3) mg/dL Total Bilirubin (0.2-1.3) mg/dL AST (17-59) U/L ALT (4-49) U/L Alkaline Phosphatase (38-126) U/L Troponin I (0.000-0.034) ng/mL NT-Pro-B Natriuret Pep 951 pg/mL Total Protein (6.3-8.2) g/dL Albumin (3.5-5.0) g/dL Critical Care Time Critical Care Time: Yes Total Critical Care Time: 90 Critical Care Time: Critical Care Time 90 min Critical care time was exclusive of separately billable procedures and treating other patients and teaching time. Critical care was necessary to treat or prevent imminent or life-threatening deterioration. Given the critical condition in which the patient arrived, the patient was immediately assessed by myself and the nurse, and cardiac monitoring initiated due to the potential for rapid decompensation of the patient's clinical condition. During the course of the patients stay, I spent a considerable amount of time at the bedside performing serial re-evaluations of the patient's hemodynamic and clinical status because of the recognized potential threat to life or limb in this condition. I then had a chance to review not only all of the available current laboratory and radiographic studies obtained today, but I also reviewed old records available to me at the time. Additionally, any ancil jeancarlos information available including retail branch manager records were reviewed. Sequential vital signs were obtained. Disposition Clinical Impression: Cardiac arrest, Acute respiratory failure Disposition: ADMITTED IP TO THIS HOSP Condition: Critical Is patient prescribed a controlled substance at d/c from ED?: No
--- NOTE | 2020-06-25 23:36 | CT ---
EXAMINATION TYPE: CT chest angio for PE DATE OF EXAM: 06/25/2020 COMPARISON: HISTORY: AMS, respiratory distress, cpr CT DLP: 956.7 mGycm Automated exposure control for dose reduction was used. CONTRAST: Performed with IV Contrast, patient injected with 100 mL of Isovue 370. There are 3-D post processed images. There is endotracheal tube noted. There is extensive bilateral airspace right consistent with pulmona ry airspace edema. There is atelectasis and airspace consolidation posterior lung clark bilaterally. There is small right pleural effusion. Heart is enlarged. There is no pericardial effusion. I see no filling defects in the pulmonary arteri es. There are no hilar masses. There is no mediastinal adenopathy. Thoracic aorta appears intact. The re is no aneurysm. Bony thorax is intact. Sternum is intact. Exam limited slightly by motion. I see no rib fracture. IMPRESSION: Moderately severe pulmonary edema consistent with acute heart failure or RDS. No evidence of pulmonary embolism.
[2020-06-26] MEDS ORDERED: NALOXONE 0.4 MG/ML 1 ML VIAL IV PRN (00:14)
--- NOTE | 2020-06-26 00:36 | XR ---
EXAMINATION TYPE: XR chest 1V confirm line [facility] DATE OF EXAM: 06/26/2020 COMPARISON: Yesterday HISTORY: Check tube placement TECHNIQUE: FINDINGS: There is nasogastric tube with the tip in the gastric fundus. There is moderately severe pu lmonary edema. There are chest leads. Endotracheal tube is 3.5 cm from the sina. IMPRESSION: NG tube is in the stomach. There is severe pulmonary edema unchanged.
[2020-06-26] MEDS ORDERED: HEPARIN SODIUM,PORCINE 5,000 UNIT/ML 1 ML VIAL IV ONE (01:00)
[2020-06-26] MEDS: FUROSEMIDE 10 MG/ML 4 ML VIAL IV SCH ×4 (01:10→23:46)
[2020-06-26] MEDS: MIDAZOLAM 1 MG/ML 5 ML VIAL IV PRN (01:19)
--- NOTE | 2020-06-26 01:33 | XR ---
EXAMINATION TYPE: XR chest 1V DATE OF EXAM: 06/26/2020 COMPARISON: Today HISTORY: Check line placement TECHNIQUE: FINDINGS: There is moderately severe pulmonary edema. Heart is enlarged. There is nasogastric tube in the stomach. There is right jugular catheter with tip in the superior vena cava. Endotracheal tube i s probably a 4 cm from the sina. There are chest leads. IMPRESSION: Severe pulmonary edema unchanged.
[2020-06-26 02:29] LABS: Glucose,Whole Blood 346 mg/dL (75-99)
[2020-06-26] MEDS: HEPARIN SOD,PORK IN 0.45% NACL 25,000 UNIT in 0.45% NACL 1 250ML.BAG IV SCH ×2 (02:45→22:14)
[2020-06-26 03:39] LABS: Appearance,Urine Cloudy (Clear); Bacteria,Urine Rare /hpf; Bilirubin,Urine Negative (Negative); Blood,Urine Moderate (Negative); Budding Yeast,Urine Rare /hpf; Color,Urine Yellow; Glucose,Urine (UA) 1+ (Negative); Granular Casts,Urine 1 /lpf (0); Hyaline Casts,Urine 7 /lpf (0-2); Ketones,Urine Negative (Negative); Leukocyte Esterase,Urine Negative (Negative); Mucus,Urine Occasional /hpf; Nitrite,Urine Negative (Negative); PH, Urine 5.5 (5.0-8.0); Protein,Urine 2+ (Negative); RBC,Urine 39 /hpf (0-5); Sperm,Urine Rare /hpf; Squamous Epithelial Cell,Urine <1 /hpf (0-4); WBC,Urine 61 /hpf (0-5)
[2020-06-26] MEDS: AMIODARONE 300 MG in DEXTROSE 5% IN WATER 250 ML IV SCH ×4 (04:45→18:56)
[2020-06-26] MEDS: fentaNYL (PF) 1,000 MCG in SODIUM CHLORIDE 0.9% 80 ML IV SCH (06:08)
--- NOTE | 2020-06-26 08:24 | P.CRDCN ---
History of Present Illness Consult date: 06/26/20 Chief complaint: Cardiopulmonary arrest History of present illness: This is a 74-year-old gentleman with requested to see and do a cardiac consult. Currently the patient is intubated and he is on mechanical ventilation. The history was taken from the chart as well as from the nurse taking care of the patient. The patient is a 74-year-old gentleman with diabetes and hypertension and dyslipidemia and also history of pulmonary embolism in the past was in his usual state of health yesterday when he was sitting at home and suddenly he developed shortness of breath. He asked his to call ambulance. Ambulance was called and on the way to the emergency department the patient was hypoxic with oxygen saturation around 60%. Upon arrival the patient was diaphoresis and also he developed cardiopulmonary arrest where he developed pulseless electrical activity. CPR was performed and the patient was brought into normal sinus mechanism. The EKG after CPR revealed sinus rhythm with interventricular conduction delay and first-degree AV block. No indication that the patient was experiencing any symptoms of chest pain or chest discomfort around the episode. The shortness of breath was of sudden onset. There was some concern regarding PE and because of that the patient was taken emergently to the computed tomography scan where he underwent a CTA and that showed no pulmonary embolism but it did show severe pulmonary edema. Also a computed tomography scan of the brain was performed and showed no evidence of any intracranial bleeding. The blood work showed elevated troponin. The first set of troponin came in to be normal but subsequent 2 sets came in to be slightly abnormal. Currently the patient is on heparin IV and also he is on amiodarone IV. No prior history of coronary artery disease or congestive heart failure or cardiac arrhythmia but he does have multiple risk factors including diabetes and hypertension and d yslipidemia. He does have history of pulmonary embolism in the past as well. Currently the patient is intubated and he is on mechanical ventilation. He is on norepinephrine for blood pressure support. An echocardiogram is in process to be done. Past Medical History Past Medical History: Diabetes Mellitus, GERD/Reflux, Hyperlipidemia, Hypertension, Osteoarthritis (OA), Pulmonary Embolus (PE), Sleep Apnea/CPAP/BIPAP Additional Past Medical History / Comment(s): uses CPAP; PE about 8 yrs ago History of Any Multi-Drug Resistant Organisms: None Reported Past Surgical History: Heart Catheterization, Orthopedic Surgery Additional Past Surgical History / Comment(s): Cataracts, Colonoscopy; L knee scope Past Anesthesia/Blood Transfusion Reactions: No Reported Reaction Past Psychological History: No Psychological Hx Reported Past Alcohol Use History: Rare Additional Past Alcohol Use History / Comment(s): quit smoking 5 years ago; prev. smoked from teens until 67 yrs old 1-1 2 ppd Past Drug Use History: None Reported - Past Family History Mother Family Medical History: No Reported History Medications and Allergies Home Medications Medication Instructions Recorded Confirmed Type Aspirin [Adult Low Dose Aspirin EC] 81 mg PO DAILY 06/11/18 06/25/20 History Cetirizine HCl 10 mg PO DAILY 06/11/18 06/25/20 History HYDROcodone/APAP 7.5-325MG [[place] 1 tab PO TID PRN 06/11/18 06/25/20 History 7.5-325] Ibuprofen 800 mg PO Q6HR PRN 06/11/18 06/25/20 History Losartan Potassium 100 mg PO DAILY 06/11/18 06/25/20 History Montelukast [Singulair] 10 mg PO HS 06/11/18 06/25/20 History Omeprazole 20 mg PO DAILY 06/11/18 06/25/20 History Pravastatin Sodium [Pravachol] 10 mg PO HS 06/11/18 06/25/20 History amLODIPine BESYLATE [Norvasc] 10 mg PO DAILY 06/11/18 06/25/20 History glipiZIDE [Glucotrol] 10 mg PO TID 06/11/18 06/25/20 History metFORMIN HCL 1,000 mg PO BID 06/11/18 06/25/20 History Glucosam/Chond/Hyalu/Cf Borate 2 tab PO DAILY 06/25/20 06/25/20 History [Move Free [employer] Tablet] L.acidoph,Paracasei, B.lactis 1 cap PO DAILY 06/25/20 06/25/20 History [Probiotic] [place]-3 Fatty Acids/Fish Oil [Fish 2 cap PO DAILY 06/25/20 06/25/20 History Oil 1,000 mg Softgel] Ranitidine HCl [Zantac] 300 mg PO HS 06/25/20 06/25/20 History hydroCHLOROthiazide 25 mg PO DAILY 06/25/20 06/25/20 History Allergies Allergy/AdvReac Type Severity Reaction Status Date / Time No Known Allergies Allergy Verified 06/16/18 09:33 Physical Exam Vitals: Vital Signs Temp Pulse Pulse Resp BP BP Pulse Ox 06/26/20 07:00 61 22 98/58 95 06/26/20 06:45 62 20 100/60 95 06/26/20 06:30 61 23 92/54 96 06/26/20 06:15 63 26 H 102/59 96 06/26/20 06:00 61 26 H 94/57 95 06/26/20 05:45 64 28 H 96/57 95 06/26/20 05:30 62 29 H 108/63 95 06/26/20 05:15 62 28 H 88/55 95 06/26/20 05:00 63 28 H 89/57 94 L 06/26/20 04:45 63 28 H 88/56 94 L 06/26/20 04:30 63 30 H 87/54 94 L 06/26/20 04:15 61 30 H 84/54 93 L 06/26/20 04:00 65 32 H 82/50 92 L 06/26/20 03:45 66 30 H 85/54 92 L 06/26/20 03:30 68 29 H 96/63 91 L 06/26/20 03:15 68 27 H 80/50 90 L 06/26/20 03:00 70 28 H 98/63 91 L 06/26/20 02:45 73 23 156/98 91 L 06/26/20 02:30 73 25 H 140/95 90 L 06/26/20 02:27 97.9 F 82 28 H 90 L 06/26/20 02:15 97.8 F 70 24 110/64 97 06/26/20 01:45 70 24 113/69 96 06/26/20 01:15 97.9 F 70 24 113/67 97 06/26/20 01:00 70 24 103/61 96 06/26/20 00:45 71 23 104/54 96 06/26/20 00:30 70 22 90/63 96 06/26/20 00:15 72 25 H 91/63 94 L 06/26/20 00:00 97.8 F 74 25 H 91/63 94 L 06/25/20 23:30 77 22 83/50 96 06/25/20 23:20 80 23 90/52 96 06/25/20 23:00 97.7 F 67 19 98/56 97 06/25/20 22:43 60 17 110/63 95 06/25/20 22:26 76 12 140/84 88 L 06/25/20 22:06 97.5 F L Intake and Output 06/25/20 06/26/20 06/26/20 22:59 06:59 14:59 Intake Total 261.436 24.1 Output Total 565 30 Balance -303.564 -5.9 Intake: Intake, IV Titration 261.436 24.1 Amount Norepinephrine 32 mg In 2.152 Sodium Chloride 0.9% 218 ml @ 0.05 MCG/KG/MIN 2.69 mls/hr IV .Q24H [facility] Rx#: [id number] Norepinephrine 4 mg In 95.464 Sodium Chloride 0.9% 250 ml @ 0.05 MCG/KG/MIN 21. 862 mls/hr IV .[id number] [facility] Rx#:[id number] fentaNYL (PF) 1,000 mcg 78.611 24.1 In Sodium Chloride 0.9% 80 ml @ Per Protocol IV . Q0M [facility] Rx#:[id number] propofoL 1,000 mg In 85.209 Empty Bag 1 bag @ Titrate IV .Q0M [facility] Rx#: [id number] Output: Gastric Drainage 300 Urine 265 30 Other: Voiding Method Indwelling Catheter Weight 114 kg 114.759 kg 117 kg - Constitutional General appearance: no acute distress - Respiratory Respiratory: bilateral: diminished - Cardiovascular Rhythm: regular Heart sounds: normal: S1, S2 Results 06/25/20 22:36 06/25/20 22:36 Cardiac Enzymes 06/25/20 06/25/20 06/26/20 Range/Units 22:36 22:36 01:50 AST 40 (17-59) U/L Troponin I 0.017 0.034 (0.000-0.034) ng/mL 06/26/20 Range/Units 03:35 AST (17-59) U/L Troponin I 0.057 H* (0.000-0.034) ng/mL Coagulation 06/25/20 Range/Units 22:36 PT 10.6 (9.0-12.0) sec APTT 30.1 H (22.0-30.0) sec CBC 06/25/20 Range/Units 22:36 WBC 16.9 H (3.8-10.6) k/uL RBC 5.43 (4.30-5.90) m/uL Hgb 15.6 (13.0-17.5) gm/dL Hct 50.8 (39.0-53.0) % Plt Count 188 (150-450) k/uL Comprehensive Metabolic Panel 06/25/20 Range/Units 22:36 Sodium 138 (137-145) mmol/L Potassium 5.0 (3.5-5.1) mmol/L Chloride 106 (98-107) mmol/L Carbon Dioxide 13 L (22-30) mmol/L BUN 21 H (9-20) mg/dL Creatinine 1.20 (0.66-1.25) mg/dL Glucose 324 H (74-99) mg/dL Calcium 9.7 (8.4-10.2) mg/dL AST 40 (17-59) U/L ALT 31 (4-49) U/L Alkaline Phosphatase 96 (38-126) U/L Total Protein 7.5 (6.3-8.2) g/dL Albumin 3.9 (3.5-5.0) g/dL Current Medications Generic Name Dose Route Start Last Admin Trade Name Freq PRN Reason Stop Dose Admin Furosemide 40 mg 06/26/20 00:30 06/26/20 01:10 Furosemide 10 Mg/Ml 4 Ml Vial IV 40 mg Q8H [facility] Administration Heparin Sodium (Porcine) 0 unit 06/26/20 01:00 Heparin Sodium,Porcine 5,000 Unit/Ml 1 Ml Vial IV PER PROTOCOL PRN Low PTT Protocol Fentanyl Citrate 1,000 mcg/ 100 mls @ 0 mls/hr 06/25/20 22:45 06/26/20 08:14 Sodium Chloride IV 0 mcg/kg/hr .Q0M [facility] 0 mls/hr Titration Protocol Per Protocol Amiodarone HCl 300 mg/ 250 mls @ 25 mls/hr 06/26/20 04:44 06/26/20 04:45 Dextrose/Water IV 06/26/20 22:43 0.5 mg/min .Q10H [facility] 25 mls/hr Administration Protocol 0.5 MG/MIN Norepinephrine Bitartrate 32 250 mls @ 2.69 mls/hr 06/25/20 23:23 06/26/20 06:44 mg/ Sodium Chloride IV 06/26/20 23:22 0.09 mcg/kg/min .Q24H [facility] 4.841 mls/hr Titration Protocol 0.05 MCG/KG/MIN Heparin Sodium/Sodium Chloride 250 mls @ 9.181 mls/hr 06/26/20 01:00 06/26/20 02:45 25,000 unit/ Sodium Chloride IV 8 units/kg/hr .Q24H [facility] 9.181 mls/hr Administration Protocol 8 UNITS/KG/HR Propofol 1,000 mg/ IV Solution 100 mls @ 0 mls/hr 06/26/20 02:30 06/26/20 05:42 IV 50 mcg/kg/min .Q0M [facility] 34.428 mls/hr Administration Protocol Titrate Piperacillin Sod/Tazobactam 100 mls @ 25 mls/hr 06/26/20 09:00 Sod 3.375 gm/ Sodium Chloride IVPB Q12HR [facility] Midazolam HCl 5 mg 06/25/20 22:31 06/26/20 01:19 Midazolam 1 Mg/Ml 5 Ml Vial IV 5 mg Q1H PRN Administration Agitation Naloxone HCl 0.2 mg 06/26/20 00:14 Naloxone 0.4 Mg/Ml 1 Ml Vial IV Q2M PRN Opioid Reversal Pantoprazole Sodium 40 mg 06/26/20 09:00 Pantoprazole 40 Mg/10 Ml Vial IVP DAILY [facility] Intake and Output 06/25/20 06/26/20 06/26/20 22:59 06:59 14:59 Intake Total 261.436 24.1 Output Total 565 30 Balance -303.564 -5.9 Intake: Intake, IV Titration 261.436 24.1 Amount Norepinephrine 32 mg In 2.152 Sodium Chloride 0.9% 218 ml @ 0.05 MCG/KG/MIN 2.69 mls/hr IV .Q24H [facility] Rx#: [id number] Norepinephrine 4 mg In 95.464 Sodium Chloride 0.9% 250 ml @ 0.05 MCG/KG/MIN 21. 862 mls/hr IV .[id number] [facility] Rx#:[id number] fentaNYL (PF) 1,000 mcg 78.611 24.1 In Sodium Chloride 0.9% 80 ml @ Per Protocol IV . Q0M [facility] Rx#:[id number] propofoL 1,000 mg In 85.209 Empty Bag 1 bag @ Titrate IV .Q0M [facility] Rx#: [id number] Output: Gastric Drainage 300 Urine 265 30 Other: Voiding Method Indwelling Catheter Weight 114 kg 114.759 kg 117 kg Patient Weight 06/27/20 06:59 Weight 117 kg 06/25/20 22:36 06/25/20 22:36 Assessment and Plan Assessment: Assessment #1 pulmonary edema #2 acute respiratory failure #3 abnormal troponin #4 cardiac arrest #5 multiple comorbid conditions including diabetes or hypertension and dyslipidemia Plan #1 pulmonary embolism was ruled out. #2 rule out severe coronary artery disease and mainly left main coronary artery disease giving the above presentation of pulmonary edema #3 I would agree about continue the heparin IV #3 add aspirin to the current medical regimen #4 add statin to the current medical regimen #5 continue supporting the blood pressure #6 start beta arthur once the patient is off vasopressors #7 follow-up on the echocardiogram #8, severe coronary angiogram Thank you for allowing us participate in his care and we'll continue following up with the patient
[2020-06-26 08:47] LABS: ABG Base Excess -6.3 mmol/L; ABG HCO3 20 mmol/L (21-25); ABG Oxygen Saturation 99.6 % (94-97); ABG PCO2 42 mmHg (35-45); ABG PH 7.29 (7.35-7.45); ABG PO2 233 mmHg (83-108); ABG TCO2 22 mmol/L (19-24); Allen Test Performed? Yes
--- NOTE | 2020-06-26 08:53 | XR ---
EXAMINATION TYPE: XR chest 1V portable DATE OF EXAM: 06/26/2020 COMPARISON: 06/26/2020 earlier exam INDICATION: Pulmonary edema CHF TECHNIQUE: Single frontal view of the chest is obtained. FINDINGS: The heart size is mildly prominent. The pulmonary vasculature is prominent. Diffuse increased lung markings are present. These have significantly improved. Small right and mini mal left pleural effusions are present. Endotracheal tube tip is above the sina. Nasogastric tube transverses the thorax the tip within the abdomen. Right central venous catheter is present with the tip in the distal superior vena cava marli on. EKG leads overlie the chest. IMPRESSION: 1. Improving pulmonary edema. 2. Small right pleural effusion. Minimal left pleural effusion is present. 3. Improving congestive heart failure. 4. Lines and catheters discussed above.
[2020-06-26 08:56] LABS: HCT 43.3 % (39.0-53.0); MCH 28.1 pg (25.0-35.0); MCHC 32.2 g/dL (31.0-37.0); Mean Platelet Volume 7.1; Platelet Count 244 k/uL (150-450); RBC 4.97 m/uL (4.30-5.90); RDW 13.7 % (11.5-15.5); WBC 17.9 k/uL (3.8-10.6)
[2020-06-26] MEDS ORDERED: PIPERACILLIN-TAZOBACTAM 3.375 GM in SODIUM CHLORIDE 0.9% 100 ML IVPB SCH (09:00)
[2020-06-26 09:10] LABS: Calcium 8.5 mg/dL (8.4-10.2); Potassium 4.9 mmol/L (3.5-5.1)
[2020-06-26 09:11] LABS: MCV 87.1 fL (80.0-100.0)
[2020-06-26] MEDS: ASPIRIN 81 MG PO SCH (09:21)
[2020-06-26] MEDS: PANTOPRAZOLE 40 MG/10 ML VIAL IVP SCH (09:21)
[2020-06-26] MEDS: HEPARIN SODIUM,PORCINE 5,000 UNIT/ML 1 ML VIAL IV PRN (09:48)
--- NOTE | 2020-06-26 10:00 | ECHOF ---
Referral Reason:Heart Failure, cardiac arrest MEASUREMENTS -------- HEIGHT: 175.3 cm WEIGHT: 114.8 kg BP: 102/59 IVSd: 1.6 cm (0.6 - 1.1) LVIDd: 6.6 cm (3.9 - 5.3) LVPWd: 1.6 cm (0.6 - 1.1) IVSs: 2.0 cm LVIDs: 4.8 cm LVPWs: 2.2 cm LA Diam: 4.1 cm (2.7 - 3.8) RVIDd: 4.0 cm (< 3.3) LAESV Index (A-L): 30.98 ml/m Ao Diam: 3.3 cm (2.0 - 3.7) AV Cusp: 2.0 cm (1.5 - 2.6) EPSS: 3.2 cm MV E Jean [place]: 0.91 m/s MV DecT: 201 ms MV A Jean [place]: 0.47 m/s MV E/A Ratio: 1.92 RAP: 15.00 mmHg RVSP: 47.62 mmHg MV EF SLOPE: 59.11 mm/s (70 - 150) MV EXCURSION: 17.57 mm (> 18.000) FINDINGS -------- Sinus rhythm. This was a technically difficult study with suboptimal views. The left ventricle is moderately dilated. There is moderate concentric left ventricular hypertrophy . Overall left ventricular systolic function is severely impaired with, an EF between 20 - 25 %. Global hypokinesis The right ventricle is moderately enlarged. LA is midly dilated 29-33ml/m2. The right atrium was not well visualized. 1.5mg of Definity was utilized for enhancement of images Interatrial and interventricular septum intact. Aortic valve is trileaflet and is mildly thickened. Mild mitral annular calcification present. Mild mitral regurgitation is present. Mild tricuspid regurgitation present. There is moderate pulmonary hypertension. The right ventric ular systolic pressure, as measured by Doppler, is 47.62mmHg. The pulmonic valve was not well visualized. The aortic root size is normal. Normal inferior vena cava with less than 50% inspiratory collapse consistent with estimated right atr ial pressure of 15 mmHg. There is no pericardial effusion. CONCLUSIONS -------- 1. The left ventricle is moderately dilated. 2. There is moderate concentric left ventricular hypertrophy. 3. Global hypokinesis 4. The right ventricle is moderately enlarged. 5. LA is midly dilated 29-33ml/m2. 6. 1.5mg of Definity was utilized for enhancement of images 7. Aortic valve is trileaflet and is mildly thickened. 8. Mild mitral annular calcification present. 9. Mild mitral regurgitation is present. 10. Mild tricuspid regurgitation present. 11. There is moderate pulmonary hypertension. 12. The right ventricular systolic pressure, as measured by Doppler, is 47.62mmHg. 13. Normal inferior vena cava with less than 50% inspiratory collapse consistent with estimated right atrial pressure of 15 mmHg. 14. There is no pericardial effusion. BATCH BLENDER: Nae Tobin RDCS
--- NOTE | 2020-06-26 10:36 | P.HPIM ---
History of Present Illness H&P Date: 06/26/20 HISTORY OF PRESENT ILLNESS This is a 74-year-old male patient of Dr. Sky with past medical history of hypertension, hyperlipidemia, diabetes mellitus type 2, gastric esophageal reflux disease, history of pulmonary embolism, obstructive sleep apnea with CPAP, generalized osteoarthritis, remote history of tobacco use and dependence. Patient apparently was utilizing his nebulizer more frequently and was having increasing difficulty in breathing for the past 48 hours which continued to worsen and EMS was called. When they arrived, patient was in cardiopulmonary arrest and CPR was started and patient demonstrated PEA. 8 minutes of CPR were performed. When ER physician intubated the patient, patient's dentures were found causing obstruction. Patient is also had central line arterial line placed. Repeat EKG was a sinus rhythm with interventricular conduction delay and first degree AV block. CAT scan of the brain shows cerebral atrophy with no acute intracranial abnormality. Chest x-ray reveals moderately severe pulmonary edema consistent with acute heart failure. CTA of the chest reveals moderately severe pulmonary edema consistent with acute heart failure or ARDS. No evidence of pulmonary embolism. WBC 16.9, hemoglobin 15.6, platelet count 188. Sodium 138, potassium 5, chloride 106, CO2 13, BUN 21 creatinine 1.2, blood sugar 324. Troponin 0.017, 0.034, 0.057. Patient is seen today in the intensive care unit, he is intubated and on mechanical ventilation with tidal volume 450, FiO2 50, PEEP of 8. Patient is sedated, on levo fed, amiodarone and heparin drips. Patient is also on IV Lasix 40 mg every 8 hours. His urine output has been 30 mL per hour. Blood sugars are elevated currently on scale insulin. Consults in place with pulmonary medicine, cardiology, neurology to rule out anoxic brain injury. Repeat chest x-ray reveals improving pulmonary edema. Small right pleural effusion. Minimal left pleural effusion. Improving congestive heart failure. Echocardiogram reveals EF of 20-25% with moderate concentric left hypertrophy, mild mitral regurgitation, mild tricuspid regurgitation, moderate pulmonary hypertension. REVIEW OF SYSTEMS Unable to obtain due to intubation. PHYSICAL EXAMINATION Gen: This is an obese 74-year-old male. Patient is in the ICU bed and appears to be comfortable. HEENT: Head is atraumatic, normocephalic. Pupils equal, round. Sclerae is anicteric. ET tube placed orally. OJ tube orally with return of brown fluid. NECK: Supple. No JVD. No lymphadenopathy. No thyromegaly. LUNGS: Diminished bilaterally. No wheezes or rhonchi. No intercostal retractions. HEART: Regular rate and rhythm. No murmur. ABDOMEN: Soft. Bowel sounds hypoactive. No masses. No tenderness. Castaneda catheter with clear sarwat urine. EXTREMITIES: Mild bilateral pedal edema. No calf tenderness. NEUROLOGICAL: Patient is sedated. ASSESSMENT AND PLAN 1. Acute cardiac pulmonary arrest status post CPR for 8 minutes, PEA. 2. Acute hypoxic respiratory failure secondary to acute pulmonary edema, acute systolic heart failure. 3. Elevated troponin possibly related to cardiopulmonary arrest, rule out non- ST elevated myocardial infarction. Continue heparin drip, aspirin, statin. 4. Leukocytosis with concern for possible aspiration during arrest. Continue Zosyn. 5. Acute kidney injury secondary to acute cardiopulmonary arrest and hypoperfusion. Continue Lasix, monitor urine output. 6. Possible anoxic encephalopathy. Consult with neurology. 7. Diabetes mellitus type 2 uncontrolled with hyperglycemia. Continue NovoLog scale every 6 hours. 8. Hypertension hypertensive cardiovascular disease. Patient is currently hypotensive on vasopressor. 9. Hyperlipidemia. Continue statin. 10. Gastroesophageal reflux disease. Continue Protonix. 11. History of pulmonary embolism 8 years ago. 12. Obstructive sleep apnea on CPAP. 13. DVT prophylaxis. Heparin drip. CODE STATUS: Full code Patient will be admitted to the hospital for a minimum of 2 night stay. Discharge plan: To be determined. Impression and plan of care have been directed as dictated by the signing physician. Robyn Montenegro nurse practitioner acting as scribe for signing physician. Past Medical History Past Medical History: Diabetes Mellitus, GERD/Reflux, Hyperlipidemia, Hypertens ion, Osteoarthritis (OA), Pulmonary Embolus (PE), Sleep Apnea/CPAP/BIPAP Additional Past Medical History / Comment(s): uses CPAP; PE about 8 yrs ago History of Any Multi-Drug Resistant Organisms: None Reported Past Surgical History: Heart Catheterization, Orthopedic Surgery Additional Past Surgical History / Comment(s): Cataracts, Colonoscopy; L knee scope Past Anesthesia/Blood Transfusion Reactions: No Reported Reaction Past Psychological History: No Psychological Hx Reported Past Alcohol Use History: Rare Additional Past Alcohol Use History / Comment(s): quit smoking 5 years ago; prev. smoked from teens until 67 yrs old 1-1 1/2 ppd Past Drug Use History: None Reported - Past Family History Mother Family Medical History: No Reported History Medications and Allergies Home Medications Medication Instructions Recorded Confirmed Type Aspirin [Adult Low Dose Aspirin EC] 81 mg PO DAILY 06/11/18 06/25/20 History Cetirizine HCl 10 mg PO DAILY 06/11/18 06/25/20 History Ibuprofen 800 mg PO Q6HR PRN 06/11/18 06/25/20 History Losartan Potassium 100 mg PO DAILY 06/11/18 06/25/20 History Montelukast [Singulair] 10 mg PO HS 06/11/18 06/25/20 History Omeprazole 20 mg PO DAILY 06/11/18 06/25/20 History Pravastatin Sodium [Pravachol] 10 mg PO HS 06/11/18 06/25/20 History amLODIPine BESYLATE [Norvasc] 10 mg PO DAILY 06/11/18 06/25/20 History glipiZIDE [Glucotrol] 20 mg PO BID 06/11/18 06/26/20 History metFORMIN HCL 1,000 mg PO BID 06/11/18 06/25/20 History Glucosam/Chond/Hyalu/Cf Borate 2 tab PO DAILY 06/25/20 06/25/20 History [Move Free Joint Health Tablet] L.acidoph,Paracasei, B.lactis 1 cap PO DAILY 06/25/20 06/25/20 History [Probiotic] [place]-3 Fatty Acids/Fish Oil [Fish 2 cap PO DAILY 06/25/20 06/25/20 History Oil 1,000 mg Softgel] hydroCHLOROthiazide 25 mg PO DAILY 06/25/20 06/25/20 History Ammonium Lactate Lotion 1 applic TOPICAL BID PRN 06/26/20 06/26/20 History [Lac-Hydrin 12% Lotion] Cholecalciferol [Vitamin D3 (25 2,000 unit PO DAILY 06/26/20 06/26/20 History Mcg = 1000 Iu)] Famotidine 40 mg PO DAILY 06/26/20 06/26/20 History Fluticasone Nasal [place] [Flonase 1 spr EA NOSTRIL BID 06/26/20 06/26/20 History Nasal [place]] HYDROcodone/APAP 10-325MG [[place] 1 tab PO TID PRN 09/22/20 09/22/20 History 10-325] Lidocaine 5% Patch [Lidoderm] 1 patch TOPICAL DAILY 06/26/20 06/26/20 History Allergies Allergy/AdvReac Type Severity Reaction Status Date / Time No Known Allergies Allergy Verified 06/16/18 09:33 Physical Exam Vitals: Vital Signs Temp Pulse Pulse Resp BP BP Pulse Ox 06/26/20 07:00 61 22 98/58 95 06/26/20 06:45 62 20 100/60 95 06/26/20 06:30 61 23 92/54 96 06/26/20 06:15 63 26 H 102/59 96 06/26/20 06:00 61 26 H 94/57 95 06/26/20 05:45 64 28 H 96/57 95 06/26/20 05:30 62 29 H 108/63 95 06/26/20 05:15 62 28 H 88/55 95 06/26/20 05:00 63 28 H 89/57 94 L 06/26/20 04:45 63 28 H 88/56 94 L 06/26/20 04:30 63 30 H 87/54 94 L 06/26/20 04:15 61 30 H 84/54 93 L 06/26/20 04:00 65 32 H 82/50 92 L 06/26/20 03:45 66 30 H 85/54 92 L 06/26/20 03:30 68 29 H 96/63 91 L 06/26/20 03:15 68 27 H 80/50 90 L 06/26/20 03:00 70 28 H 98/63 91 L 06/26/20 02:45 73 23 156/98 91 L 06/26/20 02:30 73 25 H 140/95 90 L 06/26/20 02:27 97.9 F 82 28 H 90 L 06/26/20 02:15 97.8 F 70 24 110/64 97 06/26/20 01:45 70 24 113/69 96 06/26/20 01:15 97.9 F 70 24 113/67 97 06/26/20 01:00 70 24 103/61 96 06/26/20 00:45 71 23 104/54 96 06/26/20 00:30 70 22 90/63 96 06/26/20 00:15 72 25 H 91/63 94 L 06/26/20 00:00 97.8 F 74 25 H 91/63 94 L 06/25/20 23:30 77 22 83/50 96 06/25/20 23:20 80 23 90/52 96 06/25/20 23:00 97.7 F 67 19 98/56 97 06/25/20 22:43 60 17 110/63 95 06/25/20 22:26 76 12 140/84 88 L 06/25/20 22:06 97.5 F L Intake and Output 06/25/20 06/26/20 06/26/20 22:59 06:59 14:59 Intake Total 261.436 131.205 Output Total 565 30 Balance -303.564 101.205 Intake: Intake, IV Titration 261.436 131.205 Amount Norepinephrine 32 mg In 2.152 8.472 Sodium Chloride 0.9% 218 ml @ 0.05 MCG/KG/MIN 2.69 mls/hr IV .Q24H [facility] Rx#: [id number] Norepinephrine 4 mg In 95.464 Sodium Chloride 0.9% 250 ml @ 0.05 MCG/KG/MIN 21. 862 mls/hr IV .[id number] [facility] Rx#:[id number] fentaNYL (PF) 1,000 mcg 78.611 24.1 In Sodium Chloride 0.9% 80 ml @ Per Protocol IV . Q0M [facility] Rx#:[id number] propofoL 1,000 mg In 85.209 98.633 Empty Bag 1 bag @ Titrate IV .Q0M [facility] Rx#: [id number] Output: Gastric Drainage 300 Urine 265 30 Other: Voiding Method Indwelling Catheter Weight 114 kg 114.759 kg 117 kg Results CBC & Chem 7: 06/26/20 08:37 06/26/20 08:37 Labs: Abnormal Lab Results - Last 24 Hours (Table) 06/25/20 06/25/20 06/25/20 Range/Units 22:25 22:31 22:36 WBC 16.9 H (3.8-10.6) k/uL MCHC 30.8 L (31.0-37.0) g/dL Lymphocytes # (Manual) 11.15 H (1.0-4.8) k/uL Monocytes # (Manual) 1.69 H (0-1.0) k/uL APTT (22.0-30.0) sec ABG pH 6.87 L* (7.35-7.45) ABG pCO2 74 H* (35-45) mmHg ABG pO2 143 H (83-108) mmHg ABG HCO3 14 L (21-25) mmol/L ABG Total CO2 16 L (19-24) mmol/L ABG O2 Saturation (94-97) % Sodium (137-145) mmol/L Carbon Dioxide (22-30) mmol/L BUN (9-20) mg/dL Creatinine (0.66-1.25) mg/dL Glucose (74-99) mg/dL POC Glucose (mg/dL) 388 H (75-99) mg/dL Troponin I (0.000-0.034) ng/mL Ur Specific Omega (1.001-1.035) Urine Protein (Negative) Urine Glucose (UA) (Negative) Urine Blood (Negative) Urine RBC (0-5) /hpf Urine WBC (0-5) /hpf Urine Bacteria (None) /hpf Hyaline Casts (0-2) /lpf Urine Mucus (None) /hpf Urine Yeast (Budding) (None) /hpf 06/25/20 06/25/20 06/26/20 Range/Units 22:36 22:36 02:28 WBC (3.8-10.6) k/uL MCHC (31.0-37.0) g/dL Lymphocytes # (Manual) (1.0-4.8) k/uL Monocytes # (Manual) (0-1.0) k/uL APTT 30.1 H (22.0-30.0) sec ABG pH (7.35-7.45) ABG pCO2 (35-45) mmHg ABG pO2 (83-108) mmHg ABG HCO3 (21-25) mmol/L ABG Total CO2 (19-24) mmol/L ABG O2 Saturation (94-97) % Sodium (137-145) mmol/L Carbon Dioxide 13 L (22-30) mmol/L BUN 21 H (9-20) mg/dL Creatinine (0.66-1.25) mg/dL Glucose 324 H (74-99) mg/dL POC Glucose (mg/dL) 346 H (75-99) mg/dL Troponin I (0.000-0.034) ng/mL Ur Specific Omega (1.001-1.035) Urine Protein (Negative) Urine Glucose (UA) (Negative) Urine Blood (Negative) Urine RBC (0-5) /hpf Urine WBC (0-5) /hpf Urine Bacteria (None) /hpf Hyaline Casts (0-2) /lpf Urine Mucus (None) /hpf Urine Yeast (Budding) (None) /hpf 06/26/20 06/26/20 06/26/20 Range/Units 02:55 03:35 08:37 WBC (3.8-10.6) k/uL MCHC (31.0-37.0) g/dL Lymphocytes # (Manual) (1.0-4.8) k/uL Monocytes # (Manual) (0-1.0) k/uL APTT 30.8 H (22.0-30.0) sec ABG pH (7.35-7.45) ABG pCO2 (35-45) mmHg ABG pO2 (83-108) mmHg ABG HCO3 (21-25) mmol/L ABG Total CO2 (19-24) mmol/L ABG O2 Saturation (94-97) % Sodium (137-145) mmol/L Carbon Dioxide (22-30) mmol/L BUN (9-20) mg/dL Creatinine (0.66-1.25) mg/dL Glucose (74-99) mg/dL POC Glucose (mg/dL) (75-99) mg/dL Troponin I 0.057 H* (0.000-0.034) ng/mL Ur Specific Omega 1.050 H (1.001-1.035) Urine Protein 2+ H (Negative) Urine Glucose (UA) 1+ H (Negative) Urine Blood Moderate H (Negative) Urine RBC 39 H (0-5) /hpf Urine WBC 61 H (0-5) /hpf Urine Bacteria Rare H (None) /hpf Hyaline Casts 7 H (0-2) /lpf Urine Mucus Occasional H (None) /hpf Urine Yeast (Budding) Rare H (None) /hpf 06/26/20 06/26/20 06/26/20 Range/Units 08:37 08:37 08:45 WBC 17.9 H (3.8-10.6) k/uL MCHC (31.0-37.0) g/dL Lymphocytes # (Manual) (1.0-4.8) k/uL Monocytes # (Manual) (0-1.0) k/uL APTT (22.0-30.0) sec ABG pH 7.29 L (7.35-7.45) ABG pCO2 (35-45) mmHg ABG pO2 233 H (83-108) mmHg ABG HCO3 20 L (21-25) mmol/L ABG Total CO2 (19-24) mmol/L ABG O2 Saturation 99.6 H (94-97) % Sodium 136 L (137-145) mmol/L Carbon Dioxide 20 L (22-30) mmol/L BUN 36 H (9-20) mg/dL Creatinine 1.52 H (0.66-1.25) mg/dL Glucose 291 H (74-99) mg/dL POC Glucose (mg/dL) (75-99) mg/dL Troponin I (0.000-0.034) ng/mL Ur Specific Omega (1.001-1.035) Urine Protein (Negative) Urine Glucose (UA) (Negative) Urine Blood (Negative) Urine RBC (0-5) /hpf Urine WBC (0-5) /hpf Urine Bacteria (None) /hpf Hyaline Casts (0-2) /lpf Urine Mucus (None) /hpf Urine Yeast (Budding) (None) /hpf
[2020-06-26] MEDS ORDERED: Magnesium Replacement Protocol 1 EACH MISC MISCELLANE PRN (10:46)
[2020-06-26] MEDS ORDERED: IPRATROPIUM-ALBUTEROL 3 ML NEB INHALATION PRN (11:03)
[2020-06-26] MEDS: IPRATROPIUM-ALBUTEROL 3 ML NEB INHALATION SCH ×3 (11:15→21:06)
[2020-06-26 11:30] LABS: Glucose,Whole Blood 295 mg/dL (75-99)
[2020-06-26] MEDS: MAGNESIUM SULFATE-D5W PMX 1 GM in DEXTROSE/WATER 1 100ML.BAG IVPB SCH ×2 (11:30→13:02)
[2020-06-26] MEDS: INSULIN ASPART (NovoLOG) 100 UNIT/ML VIAL SQ SCH ×4 (11:47→23:53)
--- NOTE | 2020-06-26 12:27 | PCN ---
PROCEDURE NOTE PLACEMENT OF A RIGHT RADIAL ARTERIAL LINE: PREOPERATIVE DIAGNOSIS: Hypotension requiring norepinephrine. POSTOPERATIVE DIAGNOSIS: Hypotension requiring norepinephrine. Patient is status post cardiac arrest. PROCEDURE DESCRIPTION: The patient was placed in the supine position, the right wrist was prepared in a sterile fashion and drapes applied. The right radial artery was palpated, cannulated, and a guidewire was placed. A Cook's catheter was inserted over the guidewire, the guidewire was removed. Good blood flow and good waveform noted, no evidence of any immediate complications, line was secured using 3.0 silk sutures. MMODL / IJN: [id number] /
--- NOTE | 2020-06-26 14:16 | P.CNPUL ---
History of Present Illness Consult date: 06/26/20 Requesting physician: Dioni Rai Reason for consult: other (Cardiac arrest) Chief complaint: Cardiac arrest History of present illness: This is a 74-year-old white male, known history of hypertension, pulmonary embolism, obstructive sleep apnea syndrome, on CPAP, history of degenerative joint disease, dyslipidemia, and type 2 diabetes. Patient was brought in last night by EMS who responded to a call, patient complaining of sudden shortness of breath. Upon arrival to the scene, patient was noted to be extremely short of breath, hypoxic, O2 saturation was around 60%. He was also noted to be diaphoretic, and on the way down to ER, patient developed pulseless electrical activity. CPR was initiated by EMS in route, and continued in the ER for a total of 8 minutes. Patient received 2 minutes of CPR prior to arrival to the emergency room. And upon arrival to the ER, resuscitation was continued per ACLS protocol. Definitive airway was established and according to the ER note, there was an airway obstruction noted, patient's dentures were noted in the back of his mouth obstructing the airway. These were removed prior to intubation. Right tibial IO was placed, and he received a single dose of epinephrine through with this IO patient also received 1 dose of epinephrine prior to coming to the ER by EMS. Return of spontaneous circulation was noted after epinephrine and approximately 8 minutes of CPR. Patient was sent for CT urogram of the chest, and it came back negative for pulmonary embolism, CT of the head was also negative. Patient was placed on amiodarone 4 atrial fibrillation with RVR and he was also placed on norepinephrine. Acid to the ICU on all these drips, and a right IJ central line was established by the ER physician. In the ICU, patient is on assist control rate of 26, tidal volume is 450 FiO2 100% and PEEP of 5. He is on heparin drip, norepinephrine at 0.09 mcg/kg/m, fentanyl 1 mcg/kg/h, up a fall at 50 mcg/kg/m, and amiodarone 0.5 mg/m. ABG shortly after my evaluation showed a pO2 of 233 pCO2 of 42 pH of 7.29. Hence his FiO2 was decreased down to 50%. WBC count was noted to be 17.9 hemoglobin is 14. Electrolytesenc normal BUN is 36 creatinine is 1.5 to chest x-ray showed bilateral interstitial edema/infiltrates. Patient was diuresed, and he was placed empirically on Zosyn. Patient is unresponsive to any stimuli, his fentanyl and propofol were placed on hold, hence I'm quite concerned about the possibility of anoxic brain injury considering his prolonged CPR, and I have recommended neurological evaluation. Echocardiogram showed global hypokinesis ejection fraction of 20- 25%. And there is moderate severe pulmonary hypertension. Review of Systems ROS unobtainable: due to endotracheal tube Past Medical History Past Medical History: Diabetes Mellitus, GERD/Reflux, Hyperlipidemia, Hypertension, Osteoarthritis (OA), Pulmonary Embolus (PE), Sleep Apnea/CPAP/BIPAP Additional Past Medical History / Comment(s): uses CPAP; PE about 8 yrs ago History of Any Multi-Drug Resistant Organisms: None Reported Past Surgical History: Heart Catheterization, Orthopedic Surgery Additional Past Surgical History / Comment(s): Cataracts, Colonoscopy; L knee s cope Past Anesthesia/Blood Transfusion Reactions: No Reported Reaction Past Psychological History: No Psychological Hx Reported Past Alcohol Use History: Rare Additional Past Alcohol Use History / Comment(s): quit smoking 5 years ago; prev. smoked from teens until 67 yrs old 1-1 1/2 ppd Past Drug Use History: None Reported - Past Family History Mother Family Medical History: No Reported History Medications and Allergies Home Medications Medication Instructions Recorded Confirmed Type Aspirin [Adult Low Dose Aspirin EC] 81 mg PO DAILY 06/11/18 06/25/20 History Cetirizine HCl 10 mg PO DAILY 06/11/18 06/25/20 History Ibuprofen 800 mg PO Q6HR PRN 06/11/18 06/25/20 History Losartan Potassium 100 mg PO DAILY 06/11/18 06/25/20 History Montelukast [Singulair] 10 mg PO HS 06/11/18 06/25/20 History Omeprazole 20 mg PO DAILY 06/11/18 06/25/20 History Pravastatin Sodium [Pravachol] 10 mg PO HS 06/11/18 06/25/20 History amLODIPine BESYLATE [Norvasc] 10 mg PO DAILY 06/11/18 06/25/20 History glipiZIDE [Glucotrol] 20 mg PO BID 06/11/18 06/26/20 History metFORMIN HCL 1,000 mg PO BID 06/11/18 06/25/20 History Glucosam/Chond/Hyalu/Cf Borate 2 tab PO DAILY 06/25/20 06/25/20 History [Move Free Joint Health Tablet] L.acidoph,Paracasei, B.lactis 1 cap PO DAILY 06/25/20 06/25/20 History [Probiotic] [place]-3 Fatty Acids/Fish Oil [Fish 2 cap PO DAILY 06/25/20 06/25/20 History Oil 1,000 mg Softgel] hydroCHLOROthiazide 25 mg PO DAILY 06/25/20 06/25/20 History Ammonium Lactate Lotion 1 applic TOPICAL BID PRN 06/26/20 06/26/20 History [Lac-Hydrin 12% Lotion] Cholecalciferol [Vitamin D3 (25 2,000 unit PO DAILY 06/26/20 06/26/20 History Mcg = 1000 Iu)] Famotidine 40 mg PO DAILY 06/26/20 06/26/20 History Fluticasone Nasal [place] [Flonase 1 spr EA NOSTRIL BID 06/26/20 06/26/20 History Nasal [place]] HYDROcodone/APAP 10-325MG [[place] 1 tab PO TID PRN 06/26/20 06/26/20 History 10-325] Lidocaine 5% Patch [Lidoderm] 1 patch TOPICAL DAILY 06/26/20 06/26/20 History Allergies Allergy/AdvReac Type Severity Reaction Status Date / Time No Known Allergies Allergy Verified 06/16/18 09:33 Physical Exam Vitals: Vital Signs Temp Pulse Pulse Resp BP BP Pulse Ox 06/26/20 12:00 98.6 F 63 29 H 94 L 06/26/20 11:45 63 24 94 L 06/26/20 11:30 63 20 94 L 06/26/20 11:15 63 18 94 L 06/26/20 11:00 64 16 94 L 06/26/20 10:45 63 16 94 L 06/26/20 10:30 63 16 100/58 93 L 06/26/20 10:15 65 20 100/58 93 L 06/26/20 10:00 72 18 100/58 95 06/26/20 09:45 66 32 H 100/58 95 06/26/20 09:30 63 24 100/58 94 L 06/26/20 09:15 62 28 H 100/58 94 L 06/26/20 09:00 63 16 100/58 93 L 06/26/20 08:45 61 7 L 100/58 97 06/26/20 08:30 61 14 100/58 96 06/26/20 08:15 60 23 100/58 96 06/26/20 08:00 98.5 F 61 28 H 101/60 96 06/26/20 07:45 61 20 100/57 95 06/26/20 07:30 61 20 99/57 95 06/26/20 07:15 62 20 98/59 95 06/26/20 07:00 61 22 98/58 95 06/26/20 06:45 62 20 100/60 95 06/26/20 06:30 61 23 92/54 96 06/26/20 06:15 63 26 H 102/59 96 06/26/20 06:00 61 26 H 94/57 95 06/26/20 05:45 64 28 H 96/57 95 06/26/20 05:30 62 29 H 108/63 95 06/26/20 05:15 62 28 H 88/55 95 06/26/20 05:00 63 28 H 89/57 94 L 06/26/20 04:45 63 28 H 88/56 94 L 06/26/20 04:30 63 30 H 87/54 94 L 06/26/20 04:15 61 30 H 84/54 93 L 06/26/20 04:00 65 32 H 82/50 92 L 06/26/20 03:45 66 30 H 85/54 92 L 06/26/20 03:30 68 29 H 96/63 91 L 06/26/20 03:15 68 27 H 80/50 90 L 06/26/20 03:00 70 28 H 98/63 91 L 06/26/20 02:45 73 23 156/98 91 L 06/26/20 02:30 73 25 H 140/95 90 L 06/26/20 02:27 97.9 F 82 28 H 90 L 06/26/20 02:15 97.8 F 70 24 110/64 97 06/26/20 01:45 70 24 113/69 96 06/26/20 01:15 97.9 F 70 24 113/67 97 06/26/20 01:00 70 24 103/61 96 06/26/20 00:45 71 23 104/54 96 06/26/20 00:30 70 22 90/63 96 06/26/20 00:15 72 25 H 91/63 94 L 06/26/20 00:00 97.8 F 74 25 H 91/63 94 L 06/25/20 23:30 77 22 83/50 96 06/25/20 23:20 80 23 90/52 96 06/25/20 23:00 97.7 F 67 19 98/56 97 06/25/20 22:43 60 17 110/63 95 06/25/20 22:26 76 12 140/84 88 L 06/25/20 22:06 97.5 F L Intake and Output 06/25/20 06/26/20 06/26/20 22:59 06:59 14:59 Intake Total 261.436 525.784 Output Total 565 560 Balance -303.564 -34.216 Intake: IV 12 Normal Saline Pressure 12 Bag Intake, IV Titration 261.436 483.784 Amount Heparin Sod,Pork in 0.45% 64.879 NaCl 25,000 unit In 0.45 % NaCl 1 250ml.bag @ 8 UNITS/KG/HR 9.181 mls/hr IV .Q24H [facility]IR Rx#: [id number] Magnesium Sulfate-D5w Pmx 100 1 gm In Dextrose/Water 1 100ml.bag @ 100 mls/hr IVPB Q1H EMIR Rx#: [id number] Norepinephrine 32 mg In 2.152 15.734 Sodium Chloride 0.9% 218 ml @ 0.05 MCG/KG/MIN 2.69 mls/hr IV .Q24H ONE Rx#: [id number] Norepinephrine 4 mg In 95.464 Sodium Chloride 0.9% 250 ml @ 0.05 MCG/KG/MIN 21. 862 mls/hr IV .[id number] ONE Rx#:[id number] Piperacillin-Tazobactam 3 100 .375 gm In Sodium Chloride 0.9% 100 ml @ 25 mls/hr IVPB Q12HR EMIR Rx #:[id number] fentaNYL (PF) 1,000 mcg 78.611 24.1 In Sodium Chloride 0.9% 80 ml @ Per Protocol IV . Q0M [facility]IR Rx#:[id number] propofoL 1,000 mg In 85.209 179.071 Empty Bag 1 bag @ Titrate IV .Q0M EMIR Rx#: [id number] Other 30 Output: Gastric Drainage 300 Urine 265 560 Other: Voiding Method Indwelling Catheter Indwelling Catheter Weight 114 kg 114.759 kg 117 kg ABP, PAP, CO, CI - Last 8 Hours Arterial Blood Pressure 125/52 Arterial Blood Pressure 120/52 Arterial Blood Pressure 120/51 Arterial Blood Pressure 122/51 Arterial Blood Pressure 117/51 Arterial Blood Pressure 119/51 Arterial Blood Pressure 119/51 Arterial Blood Pressure 121/54 Arterial Blood Pressure 151/61 Arterial Blood Pressure 111/55 Arterial Blood Pressure 128/54 Arterial Blood Pressure 108/50 Arterial Blood Pressure 118/51 Arterial Blood Pressure 118/53 Arterial Blood Pressure 98/51 Arterial Blood Pressure 96/49 Gen: Revealed 74-year-old white male, obese, in no distress. On mechanical ventilation. Appears comfortable on propofol and fentanyl. Head: Atraumatic, normocephalic. Endotracheal tube and orogastric tube are intact. ENT: Pupils are pinpoint, no icterus, no neck masses, no JVD, no stridor. Moist mucous membranes noted. LUNGS: symmetrical chest expansion, crackles at the bases, no rhonchi no wheezes. No chest retractions noted HEART: Normal S1 and S2, no S3 gallop, 2/6 systolic murmur thought the precordium. abdomen: Obese soft nontender no megaly no rebound hypoactive bowel sounds. neurologic: Could not be assessed, patient is sedated, however off propofol and off fentanyl, patient was not showing any responses to deep painful stimuli or verbal stimuli. And his pupils were pinpoint. extremities trace of bipedal edema. No calf tenderness. psychiatric: Could not be assessed. musculoskeletal: No deformities, could not assess muscle strength. Results - Laboratory Findings CBC and BMP: 06/26/20 08:37 06/26/20 08:37 ABG ABG pH 7.29 (7.35-7.45) L 06/26/20 08:45 ABG pCO2 42 mmHg (35-45) 06/26/20 08:45 ABG pO2 233 mmHg (83-108) H 06/26/20 08:45 ABG O2 Saturation 99.6 % (94-97) H 06/26/20 08:45 PT/INR, D-dimer PT 10.6 sec (9.0-12.0) 06/25/20 22:36 INR 1.0 (<1.2) 06/25/20 22:36 Abnormal lab findings: Abnormal Labs 06/25/20 06/25/20 06/25/20 22:25 22:31 22:36 WBC 16.9 H MCHC 30.8 L Lymphocytes # (Manual) 11.15 H Monocytes # (Manual) 1.69 H APTT ABG pH 6.87 L* ABG pCO2 74 H* ABG pO2 143 H ABG HCO3 14 L ABG Total CO2 16 L ABG O2 Saturation Sodium Carbon Dioxide BUN Creatinine Glucose POC Glucose (mg/dL) 388 H Magnesium Troponin I Ur Specific [place] Urine Protein Urine Glucose (UA) Urine Blood Urine RBC Urine WBC Urine Bacteria Hyaline Casts Urine Mucus Urine Yeast (Budding) 06/25/20 06/25/20 06/26/20 22:36 22:36 02:28 WBC MCHC Lymphocytes # (Manual) Monocytes # (Manual) APTT 30.1 H ABG pH ABG pCO2 ABG pO2 ABG HCO3 ABG Total CO2 ABG O2 Saturation Sodium Carbon Dioxide 13 L BUN 21 H Creatinine Glucose 324 H POC Glucose (mg/dL) 346 H Magnesium Troponin I Ur Specific [place] Urine Protein Urine Glucose (UA) Urine Blood Urine RBC Urine WBC Urine Bacteria Hyaline Casts Urine Mucus Urine Yeast (Budding) 06/26/20 06/26/20 06/26/20 02:55 03:35 08:37 WBC MCHC Lymphocytes # (Manual) Monocytes # (Manual) APTT 30.8 H ABG pH ABG pCO2 ABG pO2 ABG HCO3 ABG Total CO2 ABG O2 Saturation Sodium Carbon Dioxide BUN Creatinine Glucose POC Glucose (mg/dL) Magnesium Troponin I 0.057 H* Ur Specific [place] 1.050 H Urine Protein 2+ H Urine Glucose (UA) 1+ H Urine Blood Moderate H Urine RBC 39 H Urine WBC 61 H Urine Bacteria Rare H Hyaline Casts 7 H Urine Mucus Occasional H Urine Yeast (Budding) Rare H 06/26/20 06/26/20 06/26/20 08:37 08:37 08:37 WBC 17.9 H MCHC Lymphocytes # (Manual) Monocytes # (Manual) APTT ABG pH ABG pCO2 ABG pO2 ABG HCO3 ABG Total CO2 ABG O2 Saturation Sodium 136 L Carbon Dioxide 20 L BUN 36 H Creatinine 1.52 H Glucose 291 H POC Glucose (mg/dL) Magnesium 1.5 L Troponin I Ur Specific [place] Urine Protein Urine Glucose (UA) Urine Blood Urine RBC Urine WBC Urine Bacteria Hyaline Casts Urine Mucus Urine Yeast (Budding) 06/26/20 06/26/20 08:45 11:28 WBC MCHC Lymphocytes # (Manual) Monocytes # (Manual) APTT ABG pH 7.29 L ABG pCO2 ABG pO2 233 H ABG HCO3 20 L ABG Total CO2 ABG O2 Saturation 99.6 H Sodium Carbon Dioxide BUN Creatinine Glucose POC Glucose (mg/dL) 295 H Magnesium Troponin I Ur Specific [place] Urine Protein Urine Glucose (UA) Urine Blood Urine RBC Urine WBC Urine Bacteria Hyaline Casts Urine Mucus Urine Yeast (Budding) - Diagnostic Findings Chest x-ray: image reviewed (Chest x-ray as noted in HPI) Assessment and Plan Assessment: Impression: Cardiopulmonary arrest post-CPR, for 8 minutes. Presenting rhythm was pulseless electrical activity. Acute hypoxic respiratory failure secondary to cardiac arrest, and suspect acute systolic congestive heart failure. Possible non-ST elevation myocardial infarction Possible aspiration pneumonia hence the patient will be empirically placed on Zosyn. Acute kidney injury/acute tubular necrosis secondary to do pulmonary arrest and hypoperfusion. Type 2 diabetes. Strongly suspect anoxic brain injury and encephalopathy hence initiated a neurological consultation. History of dyslipidemia History of hypertension History of GERD History of pulmonary embolism, 8 years ago. History of obstructive sleep apnea syndrome. Patient is on CPAP at home. And had previous sleep studies. Recommendation: Continue ventilatory support. Continue hemodynamic support. Continue nutritional support. Initiate enteral feeding in the next 24 hours. Continue antibiotics. Continue diuretics for his pulmonary edema. And cut down her IV fluid to KVO. Neurological consultation to assess neurological status and possible anoxic brain injury Continue heparin. No plans to consider any weaning at this point, will have to further assess mental status and assess his overall cardiac status and pulmonary status in the next 24 hours. Patient is critically ill. And prognosis is definitely poor and guarded. We'll continue to follow. Critical care time is 55 minutes not including time for procedures. Time with Patient: Greater than 30
--- NOTE | 2020-06-26 14:40 | EEG ---
ELECTROENCEPHALOGRAM REPORT DATE OF SERVICE: 06/26/2020 PREAMBLE: This is a 74-year-old male who has history of cardiac arrest. EEG FINDINGS: A 21 channel portable EEG recording patient utilizing 10-20 international system with referential and bipolar montages. The background consists of poorly-developed and regulated low-amplitude diffuse new 1-2 hertz delta and with some very suppressed background activity seen intermittently. The background does not seem to be reactive to eye opening or closing. Photic driving response was not seen. No focal or generalized epileptiform activity was seen. IMPRESSION: This is a severely abnormal EEG due to diffuse background slowing and suppressed activity. This is suggestive of generalized cerebral dysfunction as can be seen with patient's history of cardiac arrest and anoxic encephalopathy. No epileptiform activity was seen. Clinical correlation is recommended. Follow-up EEG recommended, if clinically indicated. GUZMAN / CRISTHIAN: [id number] / JOYCE
--- NOTE | 2020-06-26 15:41 | P.CNNES ---
History of Present Illness Consult date: 06/26/20 Requesting physician: Love Grey Reason for Consult: Anoxic brain injuries/status post cardiac arrest History of Present Illness: Patient is a 74-year-old male arrived to the hospital by ambulance yesterday at 10 PM with CPR in progress. EMS was called for shortness of breath. Upon their arrival the patient was diaphoretic hypoxic with oxygen saturation in the 60s. He was placed on CPAP with minimal improvement in route to the hospital he became more hypoxic bradycardic and then lost pulses. CPR was initiated a pproximately 2 minutes prior to arrival to the ER. Return of spontaneous circulation was noted 8 minutes of CPR. Patient was noted to have atrial fibrillation on monitoring. Amiodarone was started. Neurology was consulted for possible anoxic encephalopathy. Vitals on arrival was blood pressure 140/84, pulse rate 76 average of 97.5. Computed tomography scan of head showed cerebral atrophy with no acute intracranial abnormality. CTA of the chest showed moderately severe pulmonary edema consistent with acute heart failure or RDS. No evidence of pulmonary embolism. Initiate Chest x-ray also showed moderately severe pulmonary edema consistent with acute heart failure. Most recent chest x-ray from this morning showed improving pulmonary edema, small right pleural effusion, improving CHF. EKG shows undetermined rhythm. Nonspecific intraventricular block. Inferior infarct, age undetermined. 2-D echo showed left ventricle is moderately dilated. Moderate concentric LVH, global hypokinesis. Left atrium is mildly dilated. Right ventricle is moderately enlarged. Moderate pulmonary hypertension. Blood test shows elevated WBC 17.9, hemoglobin 14.0, platelets 244. Sodium 136 potassium 4.9, BUN 36, creatinine 1.52. Troponin 0.057. UA shows no infection. 2+ protein. Patient's hemoglobin A1c 6.5 on 05/03/2020. Total cholesterol 1:15, LDL 60.6, HDL 29 and triglycerides 127. Patient at present is on 50 g propofol, 0.5 mg amiodarone drip and heparin IV. According to the nurse, sedation was discontinued for 20 minutes and he became tachypneic, tachycardic and the blood pressure went up to 200 systolic. Review of Systems ROS unobtainable: due to endotracheal tube, due to mental status Past Medical History Past Medical History: Diabetes Mellitus, GERD/Reflux, Hyperlipidemia, Hypertension, Osteoarthritis (OA), Pulmonary Embolus (PE), Sleep Apnea/CPAP/BIPAP Additional Past Medical History / Comment(s): uses CPAP; PE about 8 yrs ago History of Any Multi-Drug Resistant Organisms: None Reported Past Surgical History: Heart Catheterization, Orthopedic Surgery Additional Past Surgical History / Comment(s): Cataracts, Colonoscopy; L knee scope Past Anesthesia/Blood Transfusion Reactions: No Reported Reaction Past Psychological History: No Psychological Hx Reported Past Alcohol Use History: Rare Additional Past Alcohol Use History / Comment(s): quit smoking 5 years ago; prev. smoked from teens until 67 yrs old 1-10/06 ppd Past Drug Use History: None Reported - Past Family History Mother Family Medical History: No Reported History Medications and Allergies Home Medications Medication Instructions Recorded Confirmed Type Aspirin [Adult Low Dose Aspirin EC] 81 mg PO DAILY 06/11/18 06/25/20 History Montelukast [Singulair] 10 mg PO HS 06/11/18 06/25/20 History Pravastatin Sodium [Pravachol] 10 mg PO HS 06/11/18 06/25/20 History RX: Cetirizine HCl 10 mg PO DAILY 06/11/18 06/25/20 History RX: Ibuprofen 800 mg PO Q6HR PRN 06/11/18 06/25/20 History RX: Losartan Potassium 100 mg PO DAILY 06/11/18 06/25/20 History RX: Omeprazole 20 mg PO DAILY 06/11/18 06/25/20 History RX: metFORMIN HCL 1,000 mg PO BID 06/11/18 06/25/20 History amLODIPine BESYLATE [Norvasc] 10 mg PO DAILY 06/11/18 06/25/20 History glipiZIDE [Glucotrol] 20 mg PO BID 06/11/18 06/26/20 History Glucosam/Chond/Hyalu/Cf Borate 2 tab PO DAILY 06/25/20 06/25/20 History [Move Free Joint Health Tablet] L.acidoph,Paracasei, B.lactis 1 cap PO DAILY 06/25/20 06/25/20 History [Probiotic] Thomas-3 Fatty Acids/Fish Oil [Fish 2 cap PO DAILY 06/25/20 06/25/20 History Oil 1,000 mg Softgel] RX: hydroCHLOROthiazide 25 mg PO DAILY 06/25/20 06/25/20 History Ammonium Lactate Lotion 1 applic TOPICAL BID PRN 06/26/20 06/26/20 History [Lac-Hydrin 12% Lotion] Cholecalciferol [Vitamin D3 (25 2,000 unit PO DAILY 06/26/20 06/26/20 History Mcg = 1000 Iu)] Fluticasone Nasal [place] [Flonase 1 spr EA NOSTRIL BID 06/26/20 06/26/20 History Nasal [place]] HYDROcodone/APAP 10-325MG [[place] 1 tab PO TID PRN 06/26/20 06/26/20 History 10-325] Lidocaine 5% Patch [Lidoderm] 1 patch TOPICAL DAILY 06/26/20 06/26/20 History RX: Famotidine 40 mg PO DAILY 06/26/20 06/26/20 History Allergies Allergy/AdvReac Type Severity Reaction Status Date / Time No Known Allergies Allergy Verified 06/16/18 09:33 Physical Examination - Vital Signs Vital Signs: Vital Signs Temp Pulse Pulse Resp BP BP Pulse Ox 06/26/20 10:30 63 16 100/58 93 L 06/26/20 10:15 65 20 100/58 93 L 06/26/20 10:00 72 18 100/58 95 06/26/20 09:45 66 32 H 100/58 95 06/26/20 09:30 63 24 100/58 94 L 06/26/20 09:15 62 28 H 100/58 94 L 06/26/20 09:00 63 16 100/58 93 L 06/26/20 08:45 61 7 L 100/58 97 06/26/20 08:30 61 14 100/58 96 06/26/20 08:15 60 23 100/58 96 06/26/20 08:00 98.5 F 61 28 H 101/60 96 06/26/20 07:45 61 20 100/57 95 06/26/20 07:30 61 20 99/57 95 06/26/20 07:15 62 20 98/59 95 06/26/20 07:00 61 22 98/58 95 06/26/20 06:45 62 20 100/60 95 06/26/20 06:30 61 23 92/54 96 06/26/20 06:15 63 26 H 102/59 96 06/26/20 06:00 61 26 H 94/57 95 06/26/20 05:45 64 28 H 96/57 95 06/26/20 05:30 62 29 H 108/63 95 06/26/20 05:15 62 28 H 88/55 95 06/26/20 05:00 63 28 H 89/57 94 L 06/26/20 04:45 63 28 H 88/56 94 L 06/26/20 04:30 63 30 H 87/54 94 L 06/26/20 04:15 61 30 H 84/54 93 L 06/26/20 04:00 65 32 H 82/50 92 L 06/26/20 03:45 66 30 H 85/54 92 L 06/26/20 03:30 68 29 H 96/63 91 L 06/26/20 03:15 68 27 H 80/50 90 L 06/26/20 03:00 70 28 H 98/63 91 L 06/26/20 02:45 73 23 156/98 91 L 06/26/20 02:30 73 25 H 140/95 90 L 06/26/20 02:27 97.9 F 82 28 H 90 L 06/26/20 02:15 97.8 F 70 24 110/64 97 06/26/20 01:45 70 24 113/69 96 06/26/20 01:15 97.9 F 70 24 113/67 97 06/26/20 01:00 70 24 103/61 96 06/26/20 00:45 71 23 104/54 96 06/26/20 00:30 70 22 90/63 96 06/26/20 00:15 72 25 H 91/63 94 L 06/26/20 00:00 97.8 F 74 25 H 91/63 94 L 06/25/20 23:30 77 22 83/50 96 06/25/20 23:20 80 23 90/52 96 06/25/20 23:00 97.7 F 67 19 98/56 97 06/25/20 22:43 60 17 110/63 95 06/25/20 22:26 76 12 140/84 88 L 06/25/20 22:06 97.5 F L Intake and Output 06/25/20 06/26/20 06/26/20 22:59 06:59 14:59 Intake Total 261.436 360.699 Output Total 565 210 Balance -303.564 150.699 Intake: IV 6 Normal Saline Pressure 6 Bag Intake, IV Titration 261.436 324.699 Amount Heparin Sod,Pork in 0.45% 64.879 NaCl 25,000 unit In 0.45 % NaCl 1 250ml.bag @ 8 UNITS/KG/HR 9.181 mls/hr IV .Q24H [facility] Rx#: [id number] Norepinephrine 32 mg In 2.152 15.734 Sodium Chloride 0.9% 218 ml @ 0.05 MCG/KG/MIN 2.69 mls/hr IV .Q24H [facility] Rx#: [id number] Norepinephrine 4 mg In 95.464 Sodium Chloride 0.9% 250 ml @ 0.05 MCG/KG/MIN 21. 862 mls/hr IV .[id number] [facility] Rx#:[id number] Piperacillin-Tazobactam 3 100 .375 gm In Sodium Chloride 0.9% 100 ml @ 25 mls/hr IVPB Q12HR [facility] Rx #:[id number] fentaNYL (PF) 1,000 mcg 78.611 24.1 In Sodium Chloride 0.9% 80 ml @ Per Protocol IV . Q0M [facility] Rx#:[id number] propofoL 1,000 mg In 85.209 119.986 Empty Bag 1 bag @ Titrate IV .Q0M [facility] Rx#: [id number] Other 30 Output: Gastric Drainage 300 Urine 265 210 Other: Voiding Method Indwelling Catheter Weight 114 kg 114.759 kg 117 kg ABP, PAP, CO, CI - Last 8 Hours Arterial Blood Pressure 119/51 Arterial Blood Pressure 121/54 Arterial Blood Pressure 151/61 Arterial Blood Pressure 111/55 Arterial Blood Pressure 128/54 Arterial Blood Pressure 108/50 Arterial Blood Pressure 118/51 Arterial Blood Pressure 118/53 Arterial Blood Pressure 98/51 Arterial Blood Pressure 96/49 On examination patient is an elderly male, who is intubated on a ventilator, sedated with propofol 50 g. Patient not responding to any vocal or painful stimuli. Patient has bilateral pupillary reflex, reacting from 4-3 mm bilaterally. Oculocephalics and corneal reflexes are absent. Patient is breathing over the ventilator but there is no cough or gag reflex. Patient's tone is decreased. Reflexes are absent. Bulk of muscles appears normal. He has peripheral edema. Abdomen is soft. No obvious bruit. Exam limited due to mental status. Results - Laboratory Findings CBC and BMP: 06/26/20 08:37 06/26/20 08:37 Abnormal Lab Findings: Abnormal Labs 06/25/20 06/25/20 06/25/20 22:25 22:31 22:36 WBC 16.9 H MCHC 30.8 L Lymphocytes # (Manual) 11.15 H Monocytes # (Manual) 1.69 H APTT ABG pH 6.87 L* ABG pCO2 74 H* ABG pO2 143 H ABG HCO3 14 L ABG Total CO2 16 L ABG O2 Saturation Sodium Carbon Dioxide BUN Creatinine Glucose POC Glucose (mg/dL) 388 H Magnesium Troponin I Ur Specific [place] Urine Protein Urine Glucose (UA) Urine Blood Urine RBC Urine WBC Urine Bacteria Hyaline Casts Urine Mucus Urine Yeast (Budding) 06/25/20 06/25/20 06/26/20 22:36 22:36 02:28 WBC MCHC Lymphocytes # (Manual) Monocytes # (Manual) APTT 30.1 H ABG pH ABG pCO2 ABG pO2 ABG HCO3 ABG Total CO2 ABG O2 Saturation Sodium Carbon Dioxide 13 L BUN 21 H Creatinine Glucose 324 H POC Glucose (mg/dL) 346 H Magnesium Troponin I Ur Specific [place] Urine Protein Urine Glucose (UA) Urine Blood Urine RBC Urine WBC Urine Bacteria Hyaline Casts Urine Mucus Urine Yeast (Budding) 06/26/20 06/26/20 06/26/20 02:55 03:35 08:37 WBC MCHC Lymphocytes # (Manual) Monocytes # (Manual) APTT 30.8 H ABG pH ABG pCO2 ABG pO2 ABG HCO3 ABG Total CO2 ABG O2 Saturation Sodium Carbon Dioxide BUN Creatinine Glucose POC Glucose (mg/dL) Magnesium Troponin I 0.057 H* Ur Specific [place] 1.050 H Urine Protein 2+ H Urine Glucose (UA) 1+ H Urine Blood Moderate H Urine RBC 39 H Urine WBC 61 H Urine Bacteria Rare H Hyaline Casts 7 H Urine Mucus Occasional H Urine Yeast (Budding) Rare H 06/26/20 06/26/20 06/26/20 08:37 08:37 08:37 WBC 17.9 H MCHC Lymphocytes # (Manual) Monocytes # (Manual) APTT ABG pH ABG pCO2 ABG pO2 ABG HCO3 ABG Total CO2 ABG O2 Saturation Sodium 136 L Carbon Dioxide 20 L BUN 36 H Creatinine 1.52 H Glucose 291 H POC Glucose (mg/dL) Magnesium 1.5 L Troponin I Ur Specific [place] Urine Protein Urine Glucose (UA) Urine Blood Urine RBC Urine WBC Urine Bacteria Hyaline Casts Urine Mucus Urine Yeast (Budding) 06/26/20 08:45 WBC MCHC Lymphocytes # (Manual) Monocytes # (Manual) APTT ABG pH 7.29 L ABG pCO2 ABG pO2 233 H ABG HCO3 20 L ABG Total CO2 ABG O2 Saturation 99.6 H Sodium Carbon Dioxide BUN Creatinine Glucose POC Glucose (mg/dL) Magnesium Troponin I Ur Specific [place] Urine Protein Urine Glucose (UA) Urine Blood Urine RBC Urine WBC Urine Bacteria Hyaline Casts Urine Mucus Urine Yeast (Budding) Assessment and Plan Assessment: * 74-year-old male with cardiopulmonary arrest, post CPR with downtime of 8 minutes. Patient not showing any meaningful response at this time. Probable some degree of hypoxic anoxic injury from cardiac arrest. * Congestive heart failure * Probable non-STEMI * Acute kidney injury, aspiration pneumonia Plan: * Patient at present is sedated. Exam is limited. EEG revealed diffuse background slowing with suppressed brain waves, suggestive of diffuse encephalopathy, probably related to anoxia. * We will perform serial neurological examination daily to assess for any clinical improvement. We will try to perform examination when sedation is discontinued. * At present prognosis is guarded. * Your medical management. Neurology will follow.
--- NOTE | 2020-06-26 15:56 | US ---
EXAMINATION TYPE: US carotid duplex LT DATE OF EXAM: 06/26/2020 COMPARISON: NONE CLINICAL HISTORY: Cardiac arrest. Pt unresponsive/on vent in ICU/ Pt has jugular line within right ne ck, only left carotid visualized EXAM MEASUREMENTS: LEFT: Peak Systolic Velocity (PSV) cm/sec ----- Left CCA: 110.8 ----- Left ICA: 115.7 ----- Left ECA: 107.0 ICA/CCA ratio: 1.0 LEFT: End Diastole cm/sec ----- Left CCA: 11.1 ----- Left ICA: 21.2 ----- Left ECA: 12.5 VERTEBRALS (direction of flow): Left Vertebral: Antegrade Rhythm: Normal Heterogeneous plaque left with no significant elevated velocities IMPRESSION: 1. Heterogenous atheromatous plaquing bilateral left carotid bifurcation without significant flow-pacheco iting stenosis. 2. Right carotid artery cannot be visualized due to jugular vein catheter present Criteria for Assigning % of Stenosis / Diameter reduction (Estimation based on the indirect measurements of the internal carotid artery velocities (ICA PSV). 1. Normal (no stenosis)=ICA PSV < 125 cm/s: ratio < 2.0: ICA EDV<40 cm/s. 2. Less than 50% stenosis=ICA PSV < 125 cm/s: ratio < 2.0: ICA EDV<40 cm/s. 3. 50 to 69% stenosis=ICA PSV of 125 to 230 cm/s: ration 2.0 ? 4.0: ICA EDV 40-100 cm/s. 4. Greater than 70% stenosis to near occlusion= ICA PSV > 230 cm/s: ratio > 4.0: ICA EDV > 100 cm/s. 5. Near occlusion= ICA PSV velocities may be low or undetectable: variable ratio and ICA EDV. 6. Total occlusion=unable to detect flow.
[2020-06-26 16:54] LABS: Glucose,Whole Blood 274 mg/dL (75-99)
[2020-06-26] MEDS: PIPERACILLIN-TAZOBACTAM 3.375 GM in SODIUM CHLORIDE 0.9% 100 ML IVPB SCH ×2 (17:00→23:46)
[2020-06-26 19:33] LABS: Hemoglobin A1C 6.8 % (4.0-6.0)
[2020-06-26 20:55] LABS: Glucose,Whole Blood 248 mg/dL (75-99)
[2020-06-26] MEDS: CHLORHEXIDINE GLUCONATE 15 ML CUP MUCOUS MEM SCH (21:17)
[2020-06-26] MEDS: ATORVASTATIN 80 MG TAB PO SCH (21:17)
[2020-06-26] MEDS: AMIODARONE 200 MG TAB PO SCH (22:09)
[2020-06-26 23:46] LABS: Glucose,Whole Blood 188 mg/dL (75-99)
[2020-06-27] MEDS: IPRATROPIUM-ALBUTEROL 3 ML NEB INHALATION SCH ×7 (00:47→23:47)
[2020-06-27] MEDS ORDERED: propofoL 100 ML IV ONE (02:53)
[2020-06-27 04:32] LABS: Glucose,Whole Blood 162 mg/dL (75-99)
[2020-06-27] MEDS: INSULIN ASPART (NovoLOG) 100 UNIT/ML VIAL SQ SCH ×5 (04:35→20:53)
[2020-06-27 04:40] LABS: Basophils % (A) 0 %; Eosinophils # (A) 0.1 k/uL (0-0.7); Eosinophils % (A) 1 %; HCT 38.2 % (39.0-53.0); Lymphocytes # (A) 2.7 k/uL (1.0-4.8); Lymphocytes % (A) 18 %; MCHC 34.2 g/dL (31.0-37.0); MCV 84.9 fL (80.0-100.0); Mean Platelet Volume 6.8; Monocytes # (A) 1.1 k/uL (0-1.0); Monocytes % (A) 8 %; Neutrophils # (A) 10.8 k/uL (1.3-7.7); Neutrophils % (A) 72 %; Platelet Count 188 k/uL (150-450); RBC 4.49 m/uL (4.30-5.90); WBC 14.9 k/uL (3.8-10.6)
[2020-06-27 05:03] LABS: Calcium 8.5 mg/dL (8.4-10.2); Magnesium 1.9 mg/dL (1.6-2.3); Potassium 3.9 mmol/L (3.5-5.1)
[2020-06-27] MEDS ORDERED: Potassium Replacement Protocol 1 EACH MISC MISCELLANE PRN (06:44)
--- NOTE | 2020-06-27 07:06 | XR ---
EXAMINATION TYPE: XR chest 1V portable DATE OF EXAM: 06/27/2020 COMPARISON: 06/26/2020 HISTORY: SOB, Follow Up FINDINGS: Indwelling tubes and catheters are unchanged. No change in perihilar and basilar infiltrates. Stable appearance of the cardio-mediastinal structures at this time. Pleural effusion unchanged. IMPRESSION: 1. Stable portable chest. Clinical correlation and follow up until resolution is recommended.
[2020-06-27] MEDS: HEPARIN SODIUM,PORCINE 5,000 UNIT/ML 1 ML VIAL IV PRN (07:07)
[2020-06-27] MEDS: MAGNESIUM SULFATE-D5W PMX 1 GM in DEXTROSE/WATER 1 100ML.BAG IVPB SCH ×2 (07:21→08:29)
[2020-06-27 07:31] LABS: ABG Base Excess -1.2 mmol/L; ABG HCO3 23 mmol/L (21-25); ABG PCO2 37 mmHg (35-45); ABG PH 7.41 (7.35-7.45); ABG PO2 73 mmHg (83-108); ABG TCO2 25 mmol/L (19-24)
[2020-06-27 07:34] LABS: Allen Test Performed? no
--- NOTE | 2020-06-27 07:50 | P.PN ---
Subjective Progress Note Date: 06/27/20 Principal diagnosis: Acute respiratory failure This is a 74-year-old gentleman with requested to see and do a cardiac consult. Currently the patient is intubated and he is on mechanical ventilation. The history was taken from the chart as well as from the nurse taking care of the patient. The patient is a 74-year-old gentleman with diabetes and hypertension and dyslipidemia and also history of pulmonary embolism in the past was in his usual state of health yesterday when he was sitting at home and suddenly he developed shortness of breath. He asked his to call ambulance. Ambulance was called and on the way to the emergency department the patient was hypoxic with oxygen saturation around 60%. Upon arrival the patient was diaphoresis and also he developed cardiopulmonary arrest where he developed pulseless electrical activity. CPR was performed and the patient was brought into normal sinus mechanism. The EKG after CPR revealed sinus rhythm with interventricular conduction delay and first-degree AV block. No indication that the patient was experiencing any symptoms of chest pain or chest discomfort around the episode. The shortness of breath was of sudden onset. There was some concern regarding PE and because of that the patient was taken emergently to the computed tomography scan where he underwent a CTA and that showed no pulmonary embolism b ut it did show severe pulmonary edema. Also a computed tomography scan of the brain was performed and showed no evidence of any intracranial bleeding. The blood work showed elevated troponin. The first set of troponin came in to be normal but subsequent 2 sets came in to be slightly abnormal. The patient was seen today June [id number]. He continues to be intubated on mechanical ventilation. He is off vasopressor today. The chest x-ray continues to show finding consistent with volume overload and fluid overload. He is on Lasix at this point. The kidney function has been trending in the right direction. The echocardiogram revealed severe cardiomyopathy with EF between 20-25%. The patient need to undergo a heart catheterization in the next 24-48 hours to rule out severe underlying coronary artery disease. Objective - Vital Signs Vital signs: Vital Signs Temp 99.9 F H 06/27/20 04:00 Pulse 75 06/27/20 07:00 Resp 26 H 06/27/20 07:00 BP 116/64 06/27/20 06:30 Pulse Ox 92 L 06/27/20 07:00 Intake & Output 06/26/20 06/27/2006/27/20 18:59 06:59 18:59 Intake Total 1101.728 741.045 13 Output Total 1371994 Balance -268.272 -1253.955 -17 Weight 117 kg 117.9 kg Intake: IV 140 181 13 0.9 Normal Saline 110 120 10 Normal Saline Pressure 30 36 3 Bag Piperacillin-Tazobactam 3 25 .375 gm In Sodium Chloride 0.9% 100 ml @ 25 mls/hr IVPB Q12HR [facility] Rx #:[id number] Intake, IV Titration 931.728 560.045 Amount Amiodarone 300 mg In 250 Dextrose 5% in Water 250 ml @ 0.5 MG/MIN 25 mls/hr IV .Q10H [facility] Rx#: [id number] Heparin Sod,Pork in 0.45% 64.879 264.242 NaCl 25,000 unit In 0.45 % NaCl 1 250ml.bag @ 8 UNITS/KG/HR 9.181 mls/hr IV .Q24H [facility] Rx#: [id number] Magnesium Sulfate-D5w Pmx 100 1 gm In Dextrose/Water 1 100ml.bag @ 100 mls/hr IVPB Q1H [facility] Rx#: [id number] Norepinephrine 32 mg In 44.063 22.503 Sodium Chloride 0.9% 218 ml @ 0.05 MCG/KG/MIN 2.69 mls/hr IV .Q24H [facility] Rx#: [id number] Piperacillin-Tazobactam 3 100 .375 gm In Sodium Chloride 0.9% 100 ml @ 25 mls/hr IVPB Q12HR [facility] Rx #:[id number] fentaNYL (PF) 1,000 mcg 24.1 In Sodium Chloride 0.9% 80 ml @ Per Protocol IV . Q0M [facility] Rx#:[id number] propofoL 1,000 mg In 348.686 273.3 Empty Bag 1 bag @ Titrate IV .Q0M [facility] Rx#: [id number] 30 Output: Urine [id number] Other: Voiding Method Indwelling Catheter Indwelling Catheter ABP, PAP, CO, CI - Last Documented Arterial Blood Pressure 116/47 - Constitutional General appearance: Present: no acute distress - Respiratory Respiratory: bilateral: rales - Cardiovascular Rhythm: regular - Labs CBC & Chem 7: 06/27/20 04:30 06/27/20 04:30 Labs: Abnormal Lab Results - Last 24 Hours (Table) 06/26/20 06/26/20 06/26/20 Range/Units 08:37 08:37 08:37 WBC 17.9 H (3.8-10.6) k/uL Hct (39.0-53.0) % Neutrophils # (1.3-7.7) k/uL Monocytes # (0-1.0) k/uL APTT 30.8 H (22.0-30.0) sec ABG pH (7.35-7.45) ABG pO2 (83-108) mmHg ABG HCO3 (21-25) mmol/L ABG Total CO2 (19-24) mmol/L ABG O2 Saturation (94-97) % Sodium 136 L (137-145) mmol/L Carbon Dioxide 20 L (22-30) mmol/L BUN 36 H (9-20) mg/dL Creatinine 1.52 H (0.66-1.25) mg/dL Glucose 291 H (74-99) mg/dL POC Glucose (mg/dL) (75-99) mg/dL Hemoglobin A1c (4.0-6.0) % Magnesium (1.6-2.3) mg/dL 06/26/20 06/26/20 06/26/20 Range/Units 08:37 08:37 08:45 WBC (3.8-10.6) k/uL Hct (39.0-53.0) % Neutrophils # (1.3-7.7) k/uL Monocytes # (0-1.0) k/uL APTT (22.0-30.0) sec ABG pH 7.29 L (7.35-7.45) ABG pO2 233 H (83-108) mmHg ABG HCO3 20 L (21-25) mmol/L ABG Total CO2 (19-24) mmol/L ABG O2 Saturation 99.6 H (94-97) % Sodium (137-145) mmol/L Carbon Dioxide (22-30) mmol/L BUN (9-20) mg/dL Creatinine (0.66-1.25) mg/dL Glucose (74-99) mg/dL POC Glucose (mg/dL) (75-99) mg/dL Hemoglobin A1c 6.8 H (4.0-6.0) % Magnesium 1.5 L (1.6-2.3) mg/dL 06/26/20 06/26/20 06/26/20 Range/Units 11:28 16:45 16:52 WBC (3.8-10.6) k/uL Hct (39.0-53.0) % Neutrophils # (1.3-7.7) k/uL Monocytes # (0-1.0) k/uL APTT 46.8 H (22.0-30.0) sec ABG pH (7.35-7.45) ABG pO2 (83-108) mmHg ABG HCO3 (21-25) mmol/L ABG Total CO2 (19-24) mmol/L ABG O2 Saturation (94-97) % Sodium (137-145) mmol/L Carbon Dioxide (22-30) mmol/L BUN (9-20) mg/dL Creatinine (0.66-1.25) mg/dL Glucose (74-99) mg/dL POC Glucose (mg/dL) 295 H 274 H (75-99) mg/dL Hemoglobin A1c (4.0-6.0) % Magnesium (1.6-2.3) mg/dL 06/26/20 06/26/20 06/27/20 Range/Units 20:53 23:45 04:30 WBC 14.9 H (3.8-10.6) k/uL Hct 38.2 L (39.0-53.0) % Neutrophils # 10.8 H (1.3-7.7) k/uL Monocytes # 1.1 H (0-1.0) k/uL APTT (22.0-30.0) sec ABG pH (7.35-7.45) ABG pO2 (83-108) mmHg ABG HCO3 (21-25) mmol/L ABG Total CO2 (19-24) mmol/L ABG O2 Saturation (94-97) % Sodium (137-145) mmol/L Carbon Dioxide (22-30) mmol/L BUN (9-20) mg/dL Creatinine (0.66-1.25) mg/dL Glucose (74-99) mg/dL POC Glucose (mg/dL) 248 H 188 H (75-99) mg/dL Hemoglobin A1c (4.0-6.0) % Magnesium (1.6-2.3) mg/dL 06/27/20 06/27/20 06/27/20 Range/Units 04:30 04:30 04:30 WBC (3.8-10.6) k/uL Hct (39.0-53.0) % Neutrophils # (1.3-7.7) k/uL Monocytes # (0-1.0) k/uL APTT 34.8 H (22.0-30.0) sec ABG pH (7.35-7.45) ABG pO2 (83-108) mmHg ABG HCO3 (21-25) mmol/L ABG Total CO2 (19-24) mmol/L ABG O2 Saturation (94-97) % Sodium (137-145) mmol/L Carbon Dioxide (22-30) mmol/L BUN 34 H (9-20) mg/dL Creatinine 1.29 H (0.66-1.25) mg/dL Glucose 176 H (74-99) mg/dL POC Glucose (mg/dL) 162 H (75-99) mg/dL Hemoglobin A1c (4.0-6.0) % Magnesium (1.6-2.3) mg/dL 06/27/20 Range/Units 07:29 WBC (3.8-10.6) k/uL Hct (39.0-53.0) % Neutrophils # (1.3-7.7) k/uL Monocytes # (0-1.0) k/uL APTT (22.0-30.0) sec ABG pH (7.35-7.45) ABG pO2 73 L (83-108) mmHg ABG HCO3 (21-25) mmol/L ABG Total CO2 25 H (19-24) mmol/L ABG O2 Saturation (94-97) % Sodium (137-145) mmol/L Carbon Dioxide (22-30) mmol/L BUN (9-20) mg/dL Creatinine (0.66-1.25) mg/dL Glucose (74-99) mg/dL POC Glucose (mg/dL) (75-99) mg/dL Hemoglobin A1c (4.0-6.0) % Magnesium (1.6-2.3) mg/dL Microbiology - Last 24 Hours (Table) 06/25/20 23:20 Gram Stain - Preliminary Sputum Sputum Culture - Preliminary 06/26/20 02:55 Urine Culture - Preliminary Urine,Voided Assessment and Plan Assessment: Assessment #1 pulmonary edema #2 acute respiratory failure #3 abnormal troponin #4 cardiac arrest #5 severe cardiomyopathy of unknown etiology Plan #1 continue IV diuretics #2 continue monitor the kidney function and electrolytes #3 the patient need to undergo coronary angiogram down the line #4 follow-up with the patient
[2020-06-27] MEDS ORDERED: POTASSIUM BICARBONATE/CIT AC 20 MEQ TABLET.EFF NG-TUBE SCH (08:00)
[2020-06-27 08:09] LABS: Glucose,Whole Blood 177 mg/dL (75-99)
[2020-06-27] MEDS: PIPERACILLIN-TAZOBACTAM 3.375 GM in SODIUM CHLORIDE 0.9% 100 ML IVPB SCH ×2 (08:28→16:22)
[2020-06-27] MEDS: AMIODARONE 200 MG TAB PO SCH ×2 (08:29→20:53)
[2020-06-27] MEDS: PANTOPRAZOLE 40 MG/10 ML VIAL IVP SCH (08:29)
[2020-06-27] MEDS: CHLORHEXIDINE GLUCONATE 15 ML CUP MUCOUS MEM SCH ×2 (08:29→20:53)
[2020-06-27] MEDS: FUROSEMIDE 10 MG/ML 4 ML VIAL IV SCH ×2 (08:29→16:22)
[2020-06-27] MEDS: ASPIRIN 81 MG PO SCH (08:29)
[2020-06-27 10:38] LABS: ABG PCO2 74 mmHg (35-45); ABG PH 6.87 (7.35-7.45)
--- NOTE | 2020-06-27 11:32 | P.PN ---
Subjective Progress Note Date: 06/27/20 HISTORY OF PRESENT ILLNESS This is a 74-year-old male patient of Dr. Sky with past medical history of hypertension, hyperlipidemia, diabetes mellitus type 2, gastric esophageal reflux disease, history of pulmonary embolism, obstructive sleep apnea with CPAP, generalized osteoarthritis, remote history of tobacco use and dependence. Patient apparently was utilizing his nebulizer more frequently and was having increasing difficulty in breathing for the past 48 hours which continued to worsen and EMS was called. When they arrived, patient was in cardiopulmonary arrest and CPR was started and patient demonstrated PEA. 8 minutes of CPR were performed. When ER physician intubated the patient, patient's dentures were found causing obstruction. Patient is also had central line arterial line placed. Repeat EKG was a sinus rhythm with interventricular conduction delay and first degree AV block. CAT scan of the brain shows cerebral atrophy with no acute intracranial abnormality. Chest x-ray reveals moderately severe pulmonary edema consistent with acute heart failure. CTA of the chest reveals moderately severe pulmonary edema consistent with acute heart failure or ARDS. No evidence of pulmonary embolism. WBC 16.9, hemoglobin 15.6, platelet count 188. Sodium 138, potassium 5, chloride 106, CO2 13, BUN 21 creatinine 1.2, blood sugar 324. Troponin 0.017, 0.034, 0.057. Patient is seen today in the intensive care unit, he is intubated and on mechanical ventilation with tidal volume 450, FiO2 50, PEEP of 8. Patient is sedated, on levo fed, a miodarone and heparin drips. Patient is also on IV Lasix 40 mg every 8 hours. His urine output has been 30 mL per hour. Blood sugars are elevated currently on scale insulin. Consults in place with pulmonary medicine, cardiology, neurology to rule out anoxic brain injury. Repeat chest x-ray reveals improving pulmonary edema. Small right pleural effusion. Minimal left pleural effusion. Improving congestive heart failure. Echocardiogram reveals EF of 20-25% with moderate concentric left hypertrophy, mild mitral regurgitation, mild tricuspid regurgitation, moderate pulmonary hypertension. 06/27: Patient remains in the intensive care unit, intubated and on mechanical ventilation with tidal volume 450, FiO2 50, PEEP of 8. Repeat chest x-ray consistent with volume overload and fluid overload. He is on IV Lasix 40 mg every 8 hours. Cardiology is planning for heart catheterization to rule out severe underlying coronary artery disease. Dr. Cano has changed IV amiodarone to oral. He is still on heparin drip. He is no longer on vasopressors. He has been afebrile, heart rate 86, blood pressure 159/64. Repeat blood work reveals WBC 14.9, hemoglobin 13. BUN 34 and creatinine 1.29. Blood sugars were elevated 162-248 patient started on insulin drip. Patient has been evaluated by neurology. Carotid ultrasound revealed bilateral left carotid bifurcation without significant flow limiting stenosis, right carotid artery cannot be visualized due to jugular vein catheter. EEG is severely abnormal due to diffuse background slowing and suppress activity. This is suggestive of ge neralized cerebral dysfunction consistent with patient's history of cardiac arrest and anoxic encephalopathy. No epileptiform activity. The patient is unresponsive but is on sedation. Family meeting to be scheduled for tomorrow. REVIEW OF SYSTEMS Unable to obtain due to intubation. PHYSICAL EXAMINATION Gen: This is an obese 74-year-old male. Patient is in the ICU bed and appears to be comfortable on mechanical ventilation. HEENT: Head is atraumatic, normocephalic. Pupils equal, round. Sclerae is anicteric. ET tube placed orally. OJ tube orally with return of brown fluid. NECK: Supple. No JVD. No lymphadenopathy. No thyromegaly. LUNGS: Diminished bilaterally. No wheezes or rhonchi. No intercostal retractions. HEART: Regular rate and rhythm. No murmur. ABDOMEN: Soft. Bowel sounds hypoactive. No masses. No tenderness. Castaneda catheter with clear sarwat urine. EXTREMITIES: Mild bilateral pedal edema. No calf tenderness. NEUROLOGICAL: Patient is sedated. ASSESSMENT AND PLAN 1. Acute cardiac pulmonary arrest status post CPR for 8 minutes, PEA. 2. Acute hypoxic respiratory failure secondary to acute pulmonary edema, acute systolic heart failure. 3. Elevated troponin possibly related to cardiopulmonary arrest, rule out non- ST elevated myocardial infarction. Continue heparin drip, aspirin, statin. 4. Leukocytosis with concern for possible aspiration pneumonia during arrest. Continue Zosyn. 5. Acute kidney injury secondary to acute cardiopulmonary arrest and hypoperfusion. Continue Lasix, monitor urine output. 6. Possible anoxic encephalopathy. Consult with neurology appreciated. 7. Diabetes mellitus type 2 uncontrolled with hyperglycemia. Patient has been started on insulin drip. 8. Hypertension hypertensive cardiovascular disease. Patient is off vasopressor. 9. Hyperlipidemia. Continue statin. 10. Gastroesophageal reflux disease. Continue Protonix. 11. History of pulmonary embolism 8 years ago. 12. Obstructive sleep apnea on CPAP. 13. DVT prophylaxis. Heparin drip. CODE STATUS: Full code Discharge plan: To be determined. Family meeting scheduled for tomorrow. Impression and plan of care have been directed as dictated by the signing p meena. Robyn Montenegro nurse practitioner acting as scribe for signing physician. Objective - Vital Signs Vital signs: Vital Signs Temp 99.9 F H 06/27/20 04:00 Pulse 74 06/27/20 08:54 Resp 26 H 06/27/20 07:00 BP 116/64 06/27/20 06:30 Pulse Ox 92 L 06/27/20 07:00 Intake & Output 06/26/20 06/27/20 06/27/20 18:59 06:59 18:59 Intake Total 1101.728 741.045 13 Output Total 1370 1995 30 Balance -268.272 -1253.955 -17 Weight 117 kg 117.9 kg Intake: IV 140 181 13 0.9 Normal Saline 110 120 10 Normal Saline Pressure 30 36 3 Bag Piperacillin-Tazobactam 3 25 .375 gm In Sodium Chloride 0.9% 100 ml @ 25 mls/hr IVPB Q12HR [facility] Rx #:[id number] Intake, IV Titration 931.728 560.045 Amount Amiodarone 300 mg In 250 Dextrose 5% in Water 250 ml @ 0.5 MG/MIN 25 mls/hr IV .Q10H [facility] Rx#: [id number] Heparin Sod,Pork in 0.45% 64.879 264.242 NaCl 25,000 unit In 0.45 % NaCl 1 250ml.bag @ 8 UNITS/KG/HR 9.181 mls/hr IV .Q24H [facility] Rx#: [id number] Magnesium Sulfate-D5w Pmx 100 1 gm In Dextrose/Water 1 100ml.bag @ 100 mls/hr IVPB Q1H [facility] Rx#: [id number] Norepinephrine 32 mg In 44.063 22.503 Sodium Chloride 0.9% 218 ml @ 0.05 MCG/KG/MIN 2.69 mls/hr IV .Q24H [facility] Rx#: [id number] Piperacillin-Tazobactam 3 100 .375 gm In Sodium Chloride 0.9% 100 ml @ 25 mls/hr IVPB Q12HR [facility] Rx #:[id number] fentaNYL (PF) 1,000 mcg 24.1 In Sodium Chloride 0.9% 80 ml @ Per Protocol IV . Q0M [facility] Rx#:[id number] propofoL 1,000 mg In 348.686 273.3 Empty Bag 1 bag @ Titrate IV .Q0M [facility] Rx#: [id number] Other 30 Output: Urine 1370 1995 30 Other: Voiding Method Indwelling Catheter Indwelling Catheter ABP, PAP, CO, CI - Last Documented Arterial Blood Pressure 116/47 - Labs CBC & Chem 7: 06/27/20 04:30 06/27/20 04:30 Labs: Abnormal Lab Results - Last 24 Hours (Table) 06/26/20 06/26/20 06/26/20 Range/Units 08:37 08:37 11:28 WBC (3.8-10.6) k/uL Hct (39.0-53.0) % Neutrophils # (1.3-7.7) k/uL Monocytes # (0-1.0) k/uL APTT (22.0-30.0) sec ABG pO2 (83-108) mmHg ABG Total CO2 (19-24) mmol/L BUN (9-20) mg/dL Creatinine (0.66-1.25) mg/dL Glucose (74-99) mg/dL POC Glucose (mg/dL) 295 H (75-99) mg/dL Hemoglobin A1c 6.8 H (4.0-6.0) % Magnesium 1.5 L (1.6-2.3) mg/dL 06/26/20 06/26/20 06/26/20 Range/Units 16:45 16:52 20:53 WBC (3.8-10.6) k/uL Hct (39.0-53.0) % Neutrophils # (1.3-7.7) k/uL Monocytes # (0-1.0) k/uL APTT 46.8 H (22.0-30.0) sec ABG pO2 (83-108) mmHg ABG Total CO2 (19-24) mmol/L BUN (9-20) mg/dL Creatinine (0.66-1.25) mg/dL Glucose (74-99) mg/dL POC Glucose (mg/dL) 274 H 248 H (75-99) mg/dL Hemoglobin A1c (4.0-6.0) % Magnesium (1.6-2.3) mg/dL 06/26/20 06/27/20 06/27/20 Range/Units 23:45 04:30 04:30 WBC 14.9 H (3.8-10.6) k/uL Hct 38.2 L (39.0-53.0) % Neutrophils # 10.8 H (1.3-7.7) k/uL Monocytes # 1.1 H (0-1.0) k/uL APTT 34.8 H (22.0-30.0) sec ABG pO2 (83-108) mmHg ABG Total CO2 (19-24) mmol/L BUN (9-20) mg/dL Creatinine (0.66-1.25) mg/dL Glucose (74-99) mg/dL POC Glucose (mg/dL) 188 H (75-99) mg/dL Hemoglobin A1c (4.0-6.0) % Magnesium (1.6-2.3) mg/dL 06/27/20 06/27/20 06/27/20 Range/Units 04:30 04:30 07:29 WBC (3.8-10.6) k/uL Hct (39.0-53.0) % Neutrophils # (1.3-7.7) k/uL Monocytes # (0-1.0) k/uL APTT (22.0-30.0) sec ABG pO2 73 L (83-108) mmHg ABG Total CO2 25 H (19-24) mmol/L BUN 34 H (9-20) mg/dL Creatinine 1.29 H (0.66-1.25) mg/dL Glucose 176 H (74-99) mg/dL POC Glucose (mg/dL) 162 H (75-99) mg/dL Hemoglobin A1c (4.0-6.0) % Magnesium (1.6-2.3) mg/dL 06/27/20 Range/Units 08:06 WBC (3.8-10.6) k/uL Hct (39.0-53.0) % Neutrophils # (1.3-7.7) k/uL Monocytes # (0-1.0) k/uL APTT (22.0-30.0) sec ABG pO2 (83-108) mmHg ABG Total CO2 (19-24) mmol/L BUN (9-20) mg/dL Creatinine (0.66-1.25) mg/dL Glucose (74-99) mg/dL POC Glucose (mg/dL) 177 H (75-99) mg/dL Hemoglobin A1c (4.0-6.0) % Magnesium (1.6-2.3) mg/dL Microbiology - Last 24 Hours (Table) 06/25/20 23:20 Gram Stain - Preliminary Sputum Sputum Culture - Preliminary 06/26/20 02:55 Urine Culture - Preliminary Urine,Voided
[2020-06-27 12:51] LABS: Glucose,Whole Blood 197 mg/dL (75-99)
--- NOTE | 2020-06-27 15:06 | P.PN ---
Subjective Progress Note Date: 06/27/20 Principal diagnosis: Cardiac arrest This is a 74-year-old white male, known history of hypertension, pulmonary embolism, obstructive sleep apnea syndrome, on CPAP, history of degenerative joint disease, dyslipidemia, and type 2 diabetes. Patient was brought in last night by EMS who responded to a call, patient complaining of sudden shortness of breath. Upon arrival to the scene, patient was noted to be extremely short of breath, hypoxic, O2 saturation was around 60%. He was also noted to be diaphoretic, and on the way down to ER, patient developed pulseless electrical activity. CPR was initiated by EMS in route, and continued in the ER for a total of 8 minutes. Patient received 2 minutes of CPR prior to arrival to the emergency room. And upon arrival to the ER, resuscitation was continued per ACLS protocol. Definitive airway was established and according to the ER note, there was an airway obstruction noted, patient's dentures were noted in the back of his mouth obstructing the airway. These were removed prior to intubation. Right tibial IO was placed, and he received a single dose of epinephrine through with this IO patient also received 1 dose of epinephrine prior to coming to the ER by EMS. Return of spontaneous circulation was noted after epinephrine and approximately 8 minutes of CPR. Patient was sent for CT urogram of the chest, and it came back negative for pulmonary embolism, CT of the head was also negative. Patient was placed on amiodarone 4 atrial fibrillation with RVR and he was also placed on norepinephrine. Acid to the ICU on all these drips, and a right IJ central line was established by the ER physician. In the ICU, patient is on assist control rate of 26, tidal volume is 450 FiO2 100% and PEEP of 5. He is on heparin drip, norepinephrine at 0.09 mcg/kg/m, fentanyl 1 mcg/kg/h, up a fall at 50 mcg/kg/m, and amiodarone 0.5 mg/m. ABG shortly after my evaluation showed a pO2 of 233 pCO2 of 42 pH of 7.29. Hence his FiO2 was decreased down to 50%. WBC count was noted to be 17.9 hemoglobin is 14. Electrolytesenc normal BUN is 36 creatinine is 1.5 to chest x-ray showed bilateral interstitial edema/infiltrates. Patient was diuresed, and he was placed empirically on Zosyn. Patient is unresponsive to any stimuli, his fentanyl and propofol were placed on hold, hence I'm quite concerned about the possibility of anoxic brain injury considering his prolonged CPR, and I have recommended neurological evaluation. Echocardiogram showed global hypokinesis ejection fraction of 20- 25%. And there is moderate severe pulmonary hypertension. Patient was reevaluated today on 06/27/20, remains intubated and mechanically ve ntilated. His ventilator settings are assist control rate of 26 tidal volume is 450 FiO2 is 50% PEEP is at 8. ABG this morning showed a pO2 of 73 pCO2 of 37 pH of 7.41. ABG showed a pO2 of 73 pCO2 of 37 pH of 7.41. PTT is therapeutic at 50. Patient is on propofol at 35 mcg/kg/m. He is off norepinephrine since early this a.m. Patient remains on heparin. Chest x-ray continues to show evidence of pulmonary edema improved compared to yesterday, remains on Lasix at 40 mg IV push every 12 hours. Patient was seen yesterday by neurology, suspecting that the patient may have sustained anoxic brain injury, further neurological follow-up and workup is pending. Patient remains unresponsive, not following any instructions, earlier this morning he had upward gaze of his eyes, pupils were equally reactive, patient had no responses to any stimuli. He was taken off propofol and still no responses were noted. Patient became later on asynchronous with the ventilator, tachypneic and tachycardic and hypertensive. Hence we had to place him back on propofol. today is at bedside, and I di scussed his condition with her explaining to her that he may have sustained anoxic brain injury/encephalopathy. And further discussions regarding his neurological status to be addressed by the neurologist. Labs were all reviewed CBC showed WBC 14.9 hemoglobin of 13 electrolytes are normal BUN is 34 creatinine is 1.29 Objective - Vital Signs Vital signs: Vital Signs Temp 98.2 F 06/27/20 08:00 Pulse 81 06/27/20 11:30 Resp 29 H 06/27/20 10:15 BP 149/76 06/27/20 10:15 Pulse Ox 92 L 06/27/20 10:15 Intake & Output 06/26/20 06/27/20 06/27/20 18:59 06:59 18:59 Intake Total 1101.728 741.045 299.262 Output Total 1370 1995 590 Balance -268.272 -1253.955 -290.738 Weight 117 kg 117.9 kg 117.9 kg Intake: IV 140 181 132 0.9 Normal Saline 110 120 20 Normal Saline Pressure 30 36 12 Bag Piperacillin-Tazobactam 3 25 100 .375 gm In Sodium Chloride 0.9% 100 ml @ 25 mls/hr IVPB Q12HR [facility] Rx #:[id number] Intake, IV Titration 931.728 560.045 167.262 Amount Amiodarone 300 mg In 250 Dextrose 5% in Water 250 ml @ 0.5 MG/MIN 25 mls/hr IV .Q10H [facility] Rx#: [id number] Heparin Sod,Pork in 0.45% 64.879 264.242 NaCl 25,000 unit In 0.45 % NaCl 1 250ml.bag @ 8 UNITS/KG/HR 9.181 mls/hr IV .Q24H [facility] Rx#: [id number] Magnesium Sulfate-D5w Pmx 100 1 gm In Dextrose/Water 1 100ml.bag @ 100 mls/hr IVPB Q1H [facility] Rx#: [id number] Magnesium Sulfate-D5w Pmx 100 1 gm In Dextrose/Water 1 100ml.bag @ 100 mls/hr IVPB Q1H [facility] Rx#: [id number] Norepinephrine 32 mg In 44.063 22.503 Sodium Chloride 0.9% 218 ml @ 0.05 MCG/KG/MIN 2.69 mls/hr IV .Q24H [facility] Rx#: [id number] Piperacillin-Tazobactam 3 100 .375 gm In Sodium Chloride 0.9% 100 ml @ 25 mls/hr IVPB Q12HR [facility] Rx #:[id number] fentaNYL (PF) 1,000 mcg 24.1 In Sodium Chloride 0.9% 80 ml @ Per Protocol IV . Q0M [facility] Rx#:[id number] propofoL 1,000 mg In 348.686 273.3 67.262 Empty Bag 1 bag @ Titrate IV .Q0M [facility] Rx#: [id number] Other 30 Output: Urine 1370 1995 590 Other: Voiding Method Indwelling Catheter Indwelling Catheter Indwelling Catheter ABP, PAP, CO, CI - Last Documented Arterial Blood Pressure 141/55 - Exam Gen: Revealed 74-year-old white male, obese, in no distress. On mechanical ventilation. Appears comfortable on propofol , extremely agitated and restless off propofol. Head: Atraumatic, normocephalic. Endotracheal tube and orogastric tube are intact. ENT: Pupils are pinpoint, no icterus, downward gaze of both eyes noted. no neck masses, no JVD, no stridor. Moist mucous membranes noted. LUNGS: symmetrical chest expansion, crackles at the bases, no rhonchi no wheezes. No chest retractions noted HEART: Normal S1 and S2, no S3 gallop, 2/6 systolic murmur thought the precordium. abdomen: Obese soft nontender no megaly no rebound hypoactive bowel sounds. neurologic: Unresponsive to any verbal or deep painful stimuli. Pupils equally reactive. Downward gaze of both eyes noted. extremities trace of bipedal edema. No calf tenderness. psychiatric: Could not be assessed. musculoskeletal: No deformities, could not assess muscle strength. - Labs CBC & Chem 7: 06/27/20 04:30 06/27/20 04:30 Labs: Abnormal Lab Results - Last 24 Hours (Table) 06/25/20 06/26/20 06/26/20 Range/Units 22:31 08:37 16:45 WBC (3.8-10.6) k/uL Hct (39.0-53.0) % Neutrophils # (1.3-7.7) k/uL Monocytes # (0-1.0) k/uL APTT 46.8 H (22.0-30.0) sec ABG pH 6.87 L* (7.35-7.45) ABG pCO2 74 H* (35-45) mmHg ABG pO2 (83-108) mmHg ABG Total CO2 (19-24) mmol/L BUN (9-20) mg/dL Creatinine (0.66-1.25) mg/dL Glucose (74-99) mg/dL POC Glucose (mg/dL) (75-99) mg/dL Hemoglobin A1c 6.8 H (4.0-6.0) % 06/26/20 06/26/20 06/26/20 Range/Units 16:52 20:53 23:45 WBC (3.8-10.6) k/uL Hct (39.0-53.0) % Neutrophils # (1.3-7.7) k/uL Monocytes # (0-1.0) k/uL APTT (22.0-30.0) sec ABG pH (7.35-7.45) ABG pCO2 (35-45) mmHg ABG pO2 (83-108) mmHg ABG Total CO2 (19-24) mmol/L BUN (9-20) mg/dL Creatinine (0.66-1.25) mg/dL Glucose (74-99) mg/dL POC Glucose (mg/dL) 274 H 248 H 188 H (75-99) mg/dL Hemoglobin A1c (4.0-6.0) % 06/27/20 06/27/20 06/27/20 Range/Units 04:30 04:30 04:30 WBC 14.9 H (3.8-10.6) k/uL Hct 38.2 L (39.0-53.0) % Neutrophils # 10.8 H (1.3-7.7) k/uL Monocytes # 1.1 H (0-1.0) k/uL APTT 34.8 H (22.0-30.0) sec ABG pH (7.35-7.45) ABG pCO2 (35-45) mmHg ABG pO2 (83-108) mmHg ABG Total CO2 (19-24) mmol/L BUN 34 H (9-20) mg/dL Creatinine 1.29 H (0.66-1.25) mg/dL Glucose 176 H (74-99) mg/dL POC Glucose (mg/dL) (75-99) mg/dL Hemoglobin A1c (4.0-6.0) % 06/27/20 06/27/20 06/27/20 Range/Units 04:30 07:29 08:06 WBC (3.8-10.6) k/uL Hct (39.0-53.0) % Neutrophils # (1.3-7.7) k/uL Monocytes # (0-1.0) k/uL APTT (22.0-30.0) sec ABG pH (7.35-7.45) ABG pCO2 (35-45) mmHg ABG pO2 73 L (83-108) mmHg ABG Total CO2 25 H (19-24) mmol/L BUN (9-20) mg/dL Creatinine (0.66-1.25) mg/dL Glucose (74-99) mg/dL POC Glucose (mg/dL) 162 H 177 H (75-99) mg/dL Hemoglobin A1c (4.0-6.0) % 06/27/20 06/27/20 Range/Units 12:47 12:50 WBC (3.8-10.6) k/uL Hct (39.0-53.0) % Neutrophils # (1.3-7.7) k/uL Monocytes # (0-1.0) k/uL APTT 50.2 H (22.0-30.0) sec ABG pH (7.35-7.45) ABG pCO2 (35-45) mmHg ABG pO2 (83-108) mmHg ABG Total CO2 (19-24) mmol/L BUN (9-20) mg/dL Creatinine (0.66-1.25) mg/dL Glucose (74-99) mg/dL POC Glucose (mg/dL) 197 H (75-99) mg/dL Hemoglobin A1c (4.0-6.0) % Microbiology - Last 24 Hours (Table) 06/26/20 09:16 Blood Culture - Preliminary Blood No Growth after 24 hours 06/26/20 08:37 Blood Culture - Preliminary Blood No Growth after 24 hours 06/25/20 23:20 Gram Stain - Preliminary Sputum Sputum Culture - Preliminary Assessment and Plan Assessment: Impression: Cardiopulmonary arrest post-CPR, for 8 minutes. Presenting rhythm was pulseless electrical activity. Acute hypoxic respiratory failure secondary to cardiac arrest, and suspect acute systolic congestive heart failure. Possible non-ST elevation myocardial infarction Possible aspiration pneumonia hence the patient will be empirically placed on Zosyn. Acute kidney injury/acute tubular necrosis secondary to do pulmonary arrest and hypoperfusion. Type 2 diabetes. Strongly suspect anoxic brain injury and encephalopathy hence initiated a neurological consultation. History of dyslipidemia History of hypertension History of GERD History of pulmonary embolism, 8 years ago. History of obstructive sleep apnea syndrome. Patient is on CPAP at home. And had previous sleep studies. Recommendation: I had a long discussion with his today and updated on his condition and advised to discuss with the neurologist his neurological status and prognosis. At this point, patient seems to have poor prognosis considering his anoxic brain injury. Continue ventilatory support. Continue hemodynamic support. Continue nutritional support. Start enteral feeding today. Continue antibiotics. Empirically for presumptive aspiration pneumonia Continue diuretics for his pulmonary edema. Neurology to discuss his condition with today or tomorrow. Continue heparin. No plans to wean at this point considering his neurological status. But we'll continue to assess daily his mental status off sedation. Patient is critically ill. And prognosis is definitely poor and guarded. We'll continue to follow. Critical care time is 36 minutes not including time for procedures. Time with Patient: Greater than 30
[2020-06-27 15:15] LABS: Glucose,Whole Blood 193 mg/dL (75-99)
--- NOTE | 2020-06-27 15:55 | P.PN ---
Subjective Progress Note Date: 06/27/20 Patient was seen for a follow-up. Patient's was also present today. Patient showing no signs of clinical improvement. Currently on Diprivan 20 g. Patient underwent sedation holiday for 20 minutes but then he became tachypneic and tachycardic. Please refer to examination below. Objective - Vital Signs Vital signs: Vital Signs Temp 98.2 F 06/27/20 08:00 Pulse 81 06/27/20 15:16 Resp 29 H 06/27/20 10:15 BP 149/76 06/27/20 10:15 Pulse Ox 92 L 06/27/20 10:15 Intake & Output 06/26/20 06/27/20 06/27/20 18:59 06:59 18:59 Intake Total 1101.728 741.045 299.262 Output Total 1370 1995 590 Balance -268.272 -1253.955 -290.738 Weight 117 kg 117.9 kg 117.9 kg Intake: IV 140 181 132 0.9 Normal Saline 110 120 20 Normal Saline Pressure 30 36 12 Bag Piperacillin-Tazobactam 3 25 100 .375 gm In Sodium Chloride 0.9% 100 ml @ 25 mls/hr IVPB Q12HR [facility] Rx #:[id number] Intake, IV Titration 931.728 560.045 167.262 Amount Amiodarone 300 mg In 250 Dextrose 5% in Water 250 ml @ 0.5 MG/MIN 25 mls/hr IV .Q10H [facility] Rx#: [id number] Heparin Sod,Pork in 0.45% 64.879 264.242 NaCl 25,000 unit In 0.45 % NaCl 1 250ml.bag @ 8 UNITS/KG/HR 9.181 mls/hr IV .Q24H [facility] Rx#: [id number] Magnesium Sulfate-D5w Pmx 100 1 gm In Dextrose/Water 1 100ml.bag @ 100 mls/hr IVPB Q1H [facility] Rx#: [id number] Magnesium Sulfate-D5w Pmx 100 1 gm In Dextrose/Water 1 100ml.bag @ 100 mls/hr IVPB Q1H [facility] Rx#: [id number] Norepinephrine 32 mg In 44.063 22.503 Sodium Chloride 0.9% 218 ml @ 0.05 MCG/KG/MIN 2.69 mls/hr IV .Q24H [facility] Rx#: [id number] Piperacillin-Tazobactam 3 100 .375 gm In Sodium Chloride 0.9% 100 ml @ 25 mls/hr IVPB Q12HR [facility] Rx #:[id number] fentaNYL (PF) 1,000 mcg 24.1 In Sodium Chloride 0.9% 80 ml @ Per Protocol IV . Q0M [facility] Rx#:[id number] propofoL 1,000 mg In 348.686 273.3 67.262 Empty Bag 1 bag @ Titrate IV .Q0M [facility] Rx#: [id number] Other 30 Output: Urine 1370 1995 590 Other: Voiding Method Indwelling Catheter Indwelling Catheter Indwelling Catheter ABP, PAP, CO, CI - Last Documented Arterial Blood Pressure 141/55 - Exam Patient is currently comatose. Not responding to any painful stimuli. Pupils are round, mildly reacting. Oculocephalics are absent. Corneal is mildly present. Per nursing report, patient has no gag or cough. He does breathe over the ventilator. Patient has no reflexes. Tone is equal. No obvious seizure activity noted. - Labs CBC & Chem 7: 06/27/20 04:30 06/27/20 04:30 Labs: Abnormal Lab Results - Last 24 Hours (Table) 06/25/20 06/26/20 06/26/20 Range/Units 22:31 08:37 16:45 WBC (3.8-10.6) k/uL Hct (39.0-53.0) % Neutrophils # (1.3-7.7) k/uL Monocytes # (0-1.0) k/uL APTT 46.8 H (22.0-30.0) sec ABG pH 6.87 L* (7.35-7.45) ABG pCO2 74 H* (35-45) mmHg ABG pO2 (83-108) mmHg ABG Total CO2 (19-24) mmol/L BUN (9-20) mg/dL Creatinine (0.66-1.25) mg/dL Glucose (74-99) mg/dL POC Glucose (mg/dL) (75-99) mg/dL Hemoglobin A1c 6.8 H (4.0-6.0) % 06/26/20 06/26/20 06/26/20 Range/Units 16:52 20:53 23:45 WBC (3.8-10.6) k/uL Hct (39.0-53.0) % Neutrophils # (1.3-7.7) k/uL Monocytes # (0-1.0) k/uL APTT (22.0-30.0) sec ABG pH (7.35-7.45) ABG pCO2 (35-45) mmHg ABG pO2 (83-108) mmHg ABG Total CO2 (19-24) mmol/L BUN (9-20) mg/dL Creatinine (0.66-1.25) mg/dL Glucose (74-99) mg/dL POC Glucose (mg/dL) 274 H 248 H 188 H (75-99) mg/dL Hemoglobin A1c (4.0-6.0) % 06/27/20 06/27/20 06/27/20 Range/Units 04:30 04:30 04:30 WBC 14.9 H (3.8-10.6) k/uL Hct 38.2 L (39.0-53.0) % Neutrophils # 10.8 H (1.3-7.7) k/uL Monocytes # 1.1 H (0-1.0) k/uL APTT 34.8 H (22.0-30.0) sec ABG pH (7.35-7.45) ABG pCO2 (35-45) mmHg ABG pO2 (83-108) mmHg ABG Total CO2 (19-24) mmol/L BUN 34 H (9-20) mg/dL Creatinine 1.29 H (0.66-1.25) mg/dL Glucose 176 H (74-99) mg/dL POC Glucose (mg/dL) (75-99) mg/dL Hemoglobin A1c (4.0-6.0) % 06/27/20 06/27/20 06/27/20 Range/Units 04:30 07:29 08:06 WBC (3.8-10.6) k/uL Hct (39.0-53.0) % Neutrophils # (1.3-7.7) k/uL Monocytes # (0-1.0) k/uL APTT (22.0-30.0) sec ABG pH (7.35-7.45) ABG pCO2 (35-45) mmHg ABG pO2 73 L (83-108) mmHg ABG Total CO2 25 H (19-24) mmol/L BUN (9-20) mg/dL Creatinine (0.66-1.25) mg/dL Glucose (74-99) mg/dL POC Glucose (mg/dL) 162 H 177 H (75-99) mg/dL Hemoglobin A1c (4.0-6.0) % 06/27/20 06/27/20 06/27/20 Range/Units 12:47 12:50 15:14 WBC (3.8-10.6) k/uL Hct (39.0-53.0) % Neutrophils # (1.3-7.7) k/uL Monocytes # (0-1.0) k/uL APTT 50.2 H (22.0-30.0) sec ABG pH (7.35-7.45) ABG pCO2 (35-45) mmHg ABG pO2 (83-108) mmHg ABG Total CO2 (19-24) mmol/L BUN (9-20) mg/dL Creatinine (0.66-1.25) mg/dL Glucose (74-99) mg/dL POC Glucose (mg/dL) 197 H 193 H (75-99) mg/dL Hemoglobin A1c (4.0-6.0) % Microbiology - Last 24 Hours (Table) 06/26/20 02:55 Urine Culture - Final Urine,Voided 06/26/20 09:16 Blood Culture - Preliminary Blood No Growth after 24 hours 06/26/20 08:37 Blood Culture - Preliminary Blood No Growth after 24 hours 06/25/20 23:20 Gram Stain - Preliminary Sputum Sputum Culture - Preliminary Assessment and Plan Assessment: * 74-year-old male with cardiopulmonary arrest, post CPR with downtime of 8 minutes. Patient at this time 40 hours post cardiac arrest not showing any meaningful response. Patient probably suffered from some degree of hypoxic anoxic injury from cardiac arrest. * Congestive heart failure * Probable non-STEMI * Acute kidney injury, aspiration pneumonia Plan: * Patient is not showing signs of clinical improvement. He is 40 hours post cardiac arrest as of now. We will reevaluate in the morning. Repeat EEG. * We will perform serial neurological examination daily to assess for any clinical improvement. * At present prognosis is guarded. * Your medical management. Neurology will follow.
[2020-06-27] MEDS: HEPARIN SOD,PORK IN 0.45% NACL 25,000 UNIT in 0.45% NACL 1 250ML.BAG IV SCH (16:21)
[2020-06-27] MEDS: ATORVASTATIN 80 MG TAB PO SCH (20:53)
[2020-06-27 20:56] LABS: Glucose,Whole Blood 172 mg/dL (75-99)
[2020-06-28] MEDS: INSULIN ASPART (NovoLOG) 100 UNIT/ML VIAL SQ SCH ×6 (00:22→20:00)
[2020-06-28 00:26] LABS: Glucose,Whole Blood 166 mg/dL (75-99)
[2020-06-28] MEDS: PIPERACILLIN-TAZOBACTAM 3.375 GM in SODIUM CHLORIDE 0.9% 100 ML IVPB SCH ×3 (01:06→15:50)
[2020-06-28] MEDS: FUROSEMIDE 10 MG/ML 4 ML VIAL IV SCH ×3 (01:06→15:50)
[2020-06-28] MEDS: IPRATROPIUM-ALBUTEROL 3 ML NEB INHALATION SCH ×6 (03:42→18:51)
[2020-06-28 05:30] LABS: Basophils % (A) 0 %; Eosinophils # (A) 0.2 k/uL (0-0.7); Eosinophils % (A) 1 %; HCT 40.6 % (39.0-53.0); HGB 13.8 gm/dL (13.0-17.5); Lymphocytes # (A) 2.1 k/uL (1.0-4.8); Lymphocytes % (A) 14 %; MCH 28.8 pg (25.0-35.0); MCV 84.7 fL (80.0-100.0); Mean Platelet Volume 6.6; Monocytes # (A) 0.8 k/uL (0-1.0); Monocytes % (A) 5 %; Neutrophils # (A) 11.3 k/uL (1.3-7.7); Neutrophils % (A) 78 %; Platelet Count 204 k/uL (150-450); RBC 4.79 m/uL (4.30-5.90); WBC 14.5 k/uL (3.8-10.6)
[2020-06-28 06:02] LABS: Glucose,Whole Blood 161 mg/dL (75-99)
--- NOTE | 2020-06-28 06:33 | XR ---
EXAMINATION TYPE: XR chest 1V portable DATE OF EXAM: 06/28/2020 CLINICAL HISTORY: Difficulty breathing progress study. TECHNIQUE: Single AP portable semiupright view of the chest is obtained. COMPARISON: Chest x-ray from one day earlier and older studies. FINDINGS: Stable endotracheal, orogastric tube, and right internal jugular central venous catheter. Persistent bilateral perihilar and bibasilar opacities with continued improvement in perihilar opacit ies bilaterally and right basilar opacity. Background cardiomegaly with atherosclerotic thoracic aort a. Background scoliotic curvature with spurring and spine. IMPRESSION: Cardiomegaly with continued improving bilateral perihilar edema and/or infiltrates and im proving right basilar acute infiltrate and/or atelectasis. Stable small left pleural effusion with le ft basilar acute infiltrate and/or atelectasis.
[2020-06-28 07:27] LABS: ABG Base Excess 5.5 mmol/L; ABG HCO3 29 mmol/L (21-25); ABG Oxygen Saturation 94.7 % (94-97); ABG PCO2 37 mmHg (35-45); ABG PO2 69 mmHg (83-108); ABG TCO2 30 mmol/L (19-24)
[2020-06-28 07:38] LABS: Allen Test Performed? no
[2020-06-28] MEDS: DILTIAZEM 125 MG in SODIUM CHLORIDE 0.9% 100 ML IV SCH ×2 (07:44→14:53)
[2020-06-28 07:49] LABS: Glucose,Whole Blood 165 mg/dL (75-99)
[2020-06-28] MEDS: HEPARIN SOD,PORK IN 0.45% NACL 25,000 UNIT in 0.45% NACL 1 250ML.BAG IV SCH ×2 (08:00→21:00)
--- NOTE | 2020-06-28 08:07 | P.PN ---
Subjective Progress Note Date: 06/28/20 Principal diagnosis: Acute respiratory failure This is a 74-year-old gentleman with requested to see and do a cardiac consult. Currently the patient is intubated and he is on mechanical ventilation. The history was taken from the chart as well as from the nurse taking care of the patient. The patient is a 74-year-old gentleman with diabetes and hypertension and dyslipidemia and also history of pulmonary embolism in the past was in his usual state of health yesterday when he was sitting at home and suddenly he developed shortness of breath. He asked his to call ambulance. Ambulance was called and on the way to the emergency department the patient was hypoxic with oxygen saturation around 60%. Upon arrival the patient was diaphoresis and also he developed cardiopulmonary arrest where he developed pulseless electrical activity. CPR was performed and the patient was brought into normal sinus mechanism. The EKG after CPR revealed sinus rhythm with interventricular conduction delay and first-degree AV block. No indication that the patient was experiencing any symptoms of chest pain or chest discomfort around the episode. The shortness of breath was of sudden onset. There was some concern regarding PE and because of that the patient was taken emergently to the computed tomography scan where he underwent a CTA and that showed no pulmonary embolism b ut it did show severe pulmonary edema. Also a computed tomography scan of the brain was performed and showed no evidence of any intracranial bleeding. The blood work showed elevated troponin. The first set of troponin came in to be normal but subsequent 2 sets came in to be slightly abnormal. The patient was seen today 06/28/2020. He continues to be intubated and on mechanical ventilation. Hemodynamically he is stable. Yesterday he went into atrial fibrillation with RVR. He is on amiodarone by mouth at this point and he is on heparin IV. I am going to add Cardizem IV to the current medical regimen hopefully we can convert the patient to normal sinus mechanism. Please note that the echo showed severe impaired in the LV function was EF between 20-25%. There is some concern about anoxic encephalopathy and I would hold any plan regarding coronary angiogram at this point until we clarify more about the anoxic encephalopathy Objective - Vital Signs Vital signs: Vital Signs Temp 97.8 F 06/28/20 04:00 Pulse 142 H 06/28/20 07:00 Resp 34 H 06/28/20 07:00 BP 105/66 06/28/20 07:00 Pulse Ox 94 L 06/28/20 07:00 Intake & Output 06/27/20 06/28/20 06/28/20 18:59 06:59 18:59 Intake Total 895.756 276 263 Output Total 2540 3125 250 Balance -1644.244 -2849 13 Weight 117.9 kg 111.3 kg Intake: IV 256 156 13 0.9 Normal Saline 120 120 10 Normal Saline Pressure 36 36 3 Bag Piperacillin-Tazobactam 3 100 .375 gm In Sodium Chloride 0.9% 100 ml @ 25 mls/hr IVPB Q12HR [facility] Rx #:[id number] Intake, IV Titration 509.756 100 250 Amount Heparin Sod,Pork in 0.45% 142.494 250 NaCl 25,000 unit In 0.45 % NaCl 1 250ml.bag @ 8 UNITS/KG/HR 9.181 mls/hr IV .Q24H [facility] Rx#: [id number] Magnesium Sulfate-D5w Pmx 100 1 gm In Dextrose/Water 1 100ml.bag @ 100 mls/hr IVPB Q1H [facility] Rx#: [id number] Piperacillin-Tazobactam 3 100 .375 gm In Sodium Chloride 0.9% 100 ml @ 25 mls/hr IVPB Q8HR [facility] Rx# :[id number] propofoL 1,000 mg In 167.262 100 Empty Bag 1 bag @ Titrate IV .Q0M [facility] Rx#: [id number] Tube Feeding 70 20 Other 60 Output: Urine 2540 3125 250 Other: Voiding Method Indwelling Catheter Indwelling Catheter ABP, PAP, CO, CI - Last Documented Arterial Blood Pressure 110/58 - Constitutional General appearance: Present: no acute distress - Respiratory Respiratory: bilateral: CTA - Cardiovascular Rhythm: regular Heart sounds: normal: S1, S2 - Labs CBC & Chem 7: 06/28/20 05:20 06/27/20 04:30 Labs: Abnormal Lab Results - Last 24 Hours (Table) 06/25/20 06/27/20 06/27/20 Range/Units 22:31 08:06 12:47 WBC (3.8-10.6) k/uL Neutrophils # (1.3-7.7) k/uL APTT 50.2 H (22.0-30.0) sec ABG pH 6.87 L* (7.35-7.45) ABG pCO2 74 H* (35-45) mmHg ABG pO2 (83-108) mmHg ABG HCO3 (21-25) mmol/L ABG Total CO2 (19-24) mmol/L POC Glucose (mg/dL) 177 H (75-99) mg/dL 06/27/20 06/27/20 06/27/20 Range/Units 12:50 15:14 20:55 WBC (3.8-10.6) k/uL Neutrophils # (1.3-7.7) k/uL APTT (22.0-30.0) sec ABG pH (7.35-7.45) ABG pCO2 (35-45) mmHg ABG pO2 (83-108) mmHg ABG HCO3 (21-25) mmol/L ABG Total CO2 (19-24) mmol/L POC Glucose (mg/dL) 197 H 193 H 172 H (75-99) mg/dL 06/28/20 06/28/20 06/28/20 Range/Units 00:24 05:20 06:00 WBC 14.5 H (3.8-10.6) k/uL Neutrophils # 11.3 H (1.3-7.7) k/uL APTT (22.0-30.0) sec ABG pH (7.35-7.45) ABG pCO2 (35-45) mmHg ABG pO2 (83-108) mmHg ABG HCO3 (21-25) mmol/L ABG Total CO2 (19-24) mmol/L POC Glucose (mg/dL) 166 H 161 H (75-99) mg/dL 06/28/20 06/28/20 Range/Units 07:20 07:46 WBC (3.8-10.6) k/uL Neutrophils # (1.3-7.7) k/uL APTT (22.0-30.0) sec ABG pH 7.50 H (7.35-7.45) ABG pCO2 (35-45) mmHg ABG pO2 69 L (83-108) mmHg ABG HCO3 29 H (21-25) mmol/L ABG Total CO2 30 H (19-24) mmol/L POC Glucose (mg/dL) 165 H (75-99) mg/dL Microbiology - Last 24 Hours (Table) 06/26/20 02:55 Urine Culture - Final Urine,Voided 06/26/20 09:16 Blood Culture - Preliminary Blood No Growth after 24 hours 06/26/20 08:37 Blood Culture - Preliminary Blood No Growth after 24 hours Assessment and Plan Assessment: Assessment #1 pulmonary edema #2 acute respiratory failure #3 abnormal troponin #4 cardiac arrest #5 severe cardiomyopathy of unknown etiology Plan #1 start the patient on Cardizem IV #2 continue amiodarone by mouth #3 continue heparin IV #4 follow-up with the patient
[2020-06-28 08:26] LABS: ALT 52 U/L (4-49); AST 56 U/L (17-59); African American GFR (CKD) >90 (>60 ml/min/1.73 sqM); Albumin 3.8 g/dL (3.5-5.0); Alkaline Phosphatase 60 U/L (38-126); Anion Gap 9 mmol/L; Blood Urea Nitrogen 26 mg/dL (9-20); Calcium 9.3 mg/dL (8.4-10.2); Carbon Dioxide 30 mmol/L (22-30); Chloride 101 mmol/L (98-107); Glucose 190 mg/dL (74-99); Magnesium 1.9 mg/dL (1.6-2.3); Non-African American GFR(CKD) 81 (>60 ml/min/1.73 sqM); Potassium 3.9 mmol/L (3.5-5.1); Sodium 140 mmol/L (137-145); Total Bilirubin 1.2 mg/dL (0.2-1.3); Total Protein 7.4 g/dL (6.3-8.2)
[2020-06-28] MEDS: AMIODARONE 200 MG TAB PO SCH ×2 (08:38→20:01)
[2020-06-28] MEDS: HEPARIN SODIUM,PORCINE 5,000 UNIT/ML 1 ML VIAL IV PRN (08:39)
[2020-06-28] MEDS: ASPIRIN 81 MG PO SCH (08:58)
[2020-06-28] MEDS: PANTOPRAZOLE 40 MG/10 ML VIAL IVP SCH (08:58)
[2020-06-28] MEDS: CHLORHEXIDINE GLUCONATE 15 ML CUP MUCOUS MEM SCH ×2 (08:58→20:00)
[2020-06-28] MEDS ORDERED: DILTIAZEM DRIP BOLUS FROM BAG 1 MG SOLN IV ONE (09:16)
[2020-06-28] MEDS: NOREPINEPHRINE 32 MG in SODIUM CHLORIDE 0.9% 218 ML IV SCH (12:35)
[2020-06-28] MEDS ORDERED: ACETAMINOPHEN TAB 325 MG TAB PO PRN (12:36)
--- NOTE | 2020-06-28 12:39 | P.PN ---
Subjective Progress Note Date: 06/28/20 Principal diagnosis: Cardiac arrest This is a 74-year-old white male, known history of hypertension, pulmonary embolism, obstructive sleep apnea syndrome, on CPAP, history of degenerative joint disease, dyslipidemia, and type 2 diabetes. Patient was brought in last night by EMS who responded to a call, patient complaining of sudden shortness of breath. Upon arrival to the scene, patient was noted to be extremely short of breath, hypoxic, O2 saturation was around 60%. He was also noted to be diaphoretic, and on the way down to ER, patient developed pulseless electrical activity. CPR was initiated by EMS in route, and continued in the ER for a total of 8 minutes. Patient received 2 minutes of CPR prior to arrival to the emergency room. And upon arrival to the ER, resuscitation was continued per ACLS protocol. Definitive airway was established and according to the ER note, there was an airway obstruction noted, patient's dentures were noted in the back of his mouth obstructing the airway. These were removed prior to intubation. Right tibial IO was placed, and he received a single dose of epinephrine through with this IO patient also received 1 dose of epinephrine prior to coming to the ER by EMS. Return of spontaneous circulation was noted after epinephrine and approximately 8 minutes of CPR. Patient was sent for CT urogram of the chest, and it came back negative for pulmonary embolism, CT of the head was also negative. Patient was placed on amiodarone 4 atrial fibrillation with RVR and he was also placed on norepinephrine. Acid to the ICU on all these drips, and a right IJ central line was established by the ER physician. In the ICU, patient is on assist control rate of 26, tidal volume is 450 FiO2 100% and PEEP of 5. He is on heparin drip, norepinephrine at 0.09 mcg/kg/m, fentanyl 1 mcg/kg/h, up a fall at 50 mcg/kg/m, and amiodarone 0.5 mg/m. ABG shortly after my evaluation showed a pO2 of 233 pCO2 of 42 pH of 7.29. Hence his FiO2 was decreased down to 50%. WBC count was noted to be 17.9 hemoglobin is 14. Electrolytesenc normal BUN is 36 creatinine is 1.5 to chest x-ray showed bilateral interstitial edema/infiltrates. Patient was diuresed, and he was placed empirically on Zosyn. Patient is unresponsive to any stimuli, his fentanyl and propofol were placed on hold, hence I'm quite concerned about the possibility of anoxic brain injury considering his prolonged CPR, and I have recommended neurological evaluation. Echocardiogram showed global hypokinesis ejection fraction of 20- 25%. And there is moderate severe pulmonary hypertension. Patient was reevaluated today on 06/27/20, remains intubated and mechanically ve ntilated. His ventilator settings are assist control rate of 26 tidal volume is 450 FiO2 is 50% PEEP is at 8. ABG this morning showed a pO2 of 73 pCO2 of 37 pH of 7.41. ABG showed a pO2 of 73 pCO2 of 37 pH of 7.41. PTT is therapeutic at 50. Patient is on propofol at 35 mcg/kg/m. He is off norepinephrine since early this a.m. Patient remains on heparin. Chest x-ray continues to show evidence of pulmonary edema improved compared to yesterday, remains on Lasix at 40 mg IV push every 12 hours. Patient was seen yesterday by neurology, suspecting that the patient may have sustained anoxic brain injury, further neurological follow-up and workup is pending. Patient remains unresponsive, not following any instructions, earlier this morning he had upward gaze of his eyes, pupils were equally reactive, patient had no responses to any stimuli. He was taken off propofol and still no responses were noted. Patient became later on asynchronous with the ventilator, tachypneic and tachycardic and hypertensive. Hence we had to place him back on propofol. today is at bedside, and I di scussed his condition with her explaining to her that he may have sustained anoxic brain injury/encephalopathy. And further discussions regarding his neurological status to be addressed by the neurologist. Labs were all reviewed CBC showed WBC 14.9 hemoglobin of 13 electrolytes are normal BUN is 34 creatinine is 1.29 Patient was reevaluated today on 06/24/20, remains in the ICU, intubated and me chanically ventilated. He is on assist control rate of 26 tidal volume is 450 FiO2 is 50% and PEEP of 8. ABG this morning showed a pO2 of 69 pCO2 of 37 pH of 7.50. PEEP was increased to 10. Patient remains on the prevent at 50 mcg/kg/m, heart exam at 5 mg and increase it to 10 mg per hour. Patient is presently in atrial fibrillation with RVR, this is being addressed by cardiology, he was alre angela on amiodarone, and I increased his Cardizem to 10 mg per hour. Patient is also on enteral feeding, chest x-ray shows small left-sided pleural effusion, history of pulmonary edema is significantly improved compared to the last couple of days. Again his ABG is marginal. His mental status is no different today, patient is unresponsive to any stimuli. Although he is on a small dose of propofol. 15 mcg/kg/m. Patient remains on heparin, PTT is 53.3 electrolytes and renal profile are normal. WBC count is 14.5 hemoglobin 15.8. Patient was seen by neurology yesterday, and suspect that the patient has severe anoxic brain injury. was updated yesterday on his condition. And his condition was discussed by the neurologist with his also. Objective - Vital Signs Vital signs: Vital Signs Temp 97.8 F 06/28/20 04:00 Pulse 100 06/28/20 11:16 Resp 34 H 06/28/20 07:00 BP 105/66 06/28/20 07:00 Pulse Ox 94 L 06/28/20 07:00 Intake & Output 06/27/20 06/28/20 06/28/20 18:59 06:59 18:59 Intake Total 895.756 276 398.097 Output Total 2540 3125 250 Balance -1644.244 -2849 148.097 Weight 117.9 kg 111.3 kg Intake: IV 256 156 13 0.9 Normal Saline 120 120 10 Normal Saline Pressure 36 36 3 Bag Piperacillin-Tazobactam 3 100 .375 gm In Sodium Chloride 0.9% 100 ml @ 25 mls/hr IVPB Q12HR [facility] Rx #:[id number] Intake, IV Titration 509.756 100 385.097 Amount Diltiazem 125 mg In 42.167 Sodium Chloride 0.9% 100 ml @ 10 MG/HR 10 mls/hr IV .[id number] [facility] Rx#: [id number] Heparin Sod,Pork in 0.45% 142.494 260.711 NaCl 25,000 unit In 0.45 % NaCl 1 250ml.bag @ 8 UNITS/KG/HR 9.181 mls/hr IV .Q24H [facility] Rx#: [id number] Magnesium Sulfate-D5w Pmx 100 1 gm In Dextrose/Water 1 100ml.bag @ 100 mls/hr IVPB Q1H [facility] Rx#: [id number] Piperacillin-Tazobactam 3 100 .375 gm In Sodium Chloride 0.9% 100 ml @ 25 mls/hr IVPB Q8HR [facility] Rx# :[id number] propofoL 1,000 mg In 167.262 100 82.219 Empty Bag 1 bag @ Titrate IV .Q0M [facility] Rx#: [id number] Tube Feeding 70 20 Other 60 Output: Urine 2540 3125 250 Other: Voiding Method Indwelling Catheter Indwelling Catheter Indwelling Catheter ABP, PAP, CO, CI - Last Documented Arterial Blood Pressure 110/58 - Exam Gen: Revealed 74-year-old white male, obese, in no distress. On mechanical ventilation. Appears comfortable on propofol Head: Atraumatic, normocephalic. Endotracheal tube and orogastric tube are intact. ENT: Pupils are pinpoint, no icterus, downward gaze of both eyes noted. no neck masses, no JVD, no stridor. Moist mucous membranes noted. LUNGS: symmetrical chest expansion, crackles at the bases, no rhonchi no wheezes. No chest retractions noted HEART: Normal S1 and S2, no S3 gallop, 2/6 systolic murmur thought the precordium. abdomen: Obese soft nontender no megaly no rebound hypoactive bowel sounds. neurologic: Unresponsive to any verbal or deep painful stimuli. Pupils equally reactive. Downward gaze of both eyes noted. extremities trace of bipedal edema. No calf tenderness. psychiatric: Could not be assessed. musculoskeletal: No deformities, could not assess muscle strength. - Labs CBC & Chem 7: 06/28/20 05:20 06/28/20 05:20 Labs: Abnormal Lab Results - Last 24 Hours (Table) 06/27/20 06/27/20 06/27/20 Range/Units 12:47 12:50 15:14 WBC (3.8-10.6) k/uL Neutrophils # (1.3-7.7) k/uL APTT 50.2 H (22.0-30.0) sec ABG pH (7.35-7.45) ABG pO2 (83-108) mmHg ABG HCO3 (21-25) mmol/L ABG Total CO2 (19-24) mmol/L BUN (9-20) mg/dL Glucose (74-99) mg/dL POC Glucose (mg/dL) 197 H 193 H (75-99) mg/dL ALT (4-49) U/L 06/27/20 06/28/20 06/28/20 Range/Units 20:55 00:24 05:20 WBC 14.5 H (3.8-10.6) k/uL Neutrophils # 11.3 H (1.3-7.7) k/uL APTT (22.0-30.0) sec ABG pH (7.35-7.45) ABG pO2 (83-108) mmHg ABG HCO3 (21-25) mmol/L ABG Total CO2 (19-24) mmol/L BUN (9-20) mg/dL Glucose (74-99) mg/dL POC Glucose (mg/dL) 172 H 166 H (75-99) mg/dL ALT (4-49) U/L 06/28/20 06/28/20 06/28/20 Range/Units 05:20 06:00 07:20 WBC (3.8-10.6) k/uL Neutrophils # (1.3-7.7) k/uL APTT (22.0-30.0) sec ABG pH 7.50 H (7.35-7.45) ABG pO2 69 L (83-108) mmHg ABG HCO3 29 H (21-25) mmol/L ABG Total CO2 30 H (19-24) mmol/L BUN 26 H (9-20) mg/dL Glucose 190 H (74-99) mg/dL POC Glucose (mg/dL) 161 H (75-99) mg/dL ALT 52 H (4-49) U/L 06/28/20 06/28/20 Range/Units 07:46 07:47 WBC (3.8-10.6) k/uL Neutrophils # (1.3-7.7) k/uL APTT 33.3 H (22.0-30.0) sec ABG pH (7.35-7.45) ABG pO2 (83-108) mmHg ABG HCO3 (21-25) mmol/L ABG Total CO2 (19-24) mmol/L BUN (9-20) mg/dL Glucose (74-99) mg/dL POC Glucose (mg/dL) 165 H (75-99) mg/dL ALT (4-49) U/L Microbiology - Last 24 Hours (Table) 06/26/20 09:16 Blood Culture - Preliminary Blood No Growth after 48 hours 06/26/20 08:37 Blood Culture - Preliminary Blood No Growth after 48 hours 06/25/20 23:20 Gram Stain - Final Sputum Sputum Culture - Final 06/26/20 02:55 Urine Culture - Final Urine,Voided Assessment and Plan Assessment: Impression: Cardiopulmonary arrest post-CPR, for 8 minutes. Presenting rhythm was pulseless electrical activity. Acute hypoxic respiratory failure secondary to cardiac arrest, and suspect acute systolic congestive heart failure. Improving based on the chest x-ray today. Possible non-ST elevation myocardial infarction Possible aspiration pneumonia hence the patient will be empirically placed on Zosyn. Acute kidney injury/acute tubular necrosis secondary to do pulmonary arrest and hypoperfusion. Resolved based on the labs today. Type 2 diabetes. Strongly suspect anoxic brain injury and encephalopathy , being followed by neurology. History of dyslipidemia History of hypertension History of GERD History of pulmonary embolism, 8 years ago. History of obstructive sleep apnea syndrome. Patient is on CPAP at home. And had previous sleep studies. Recommendation: Continue ventilatory support. Continue hemodynamic support. Patient had to be placed on Cardizem, is also on amiodarone orally, and if blood pressure drops down on Cardizem may require norepinephrine drip. Continue nutritional support. Continue enteral feeding. Continue antibiotics. Empirically for presumptive aspiration pneumonia Continue diuretics for his pulmonary edema. Continue to monitor neurologic status, PEEP followed by neurology, EEG is pending/repeat Continue heparin. No plans to wean at this point considering his neurological status. Patient is not amenable considering his neurological status. Patient is critically ill. Prognosis is poor.. Critical care time is 32 minutes not including time for procedures. Time with Patient: Greater than 30
[2020-06-28 12:42] LABS: Glucose,Whole Blood 182 mg/dL (75-99)
--- NOTE | 2020-06-28 14:42 | P.PN ---
Subjective Progress Note Date: 06/28/20 HISTORY OF PRESENT ILLNESS This is a 74-year-old male patient of Dr. Sky with past medical history of hypertension, hyperlipidemia, diabetes mellitus type 2, gastric esophageal reflux disease, history of pulmonary embolism, obstructive sleep apnea with CPAP, generalized osteoarthritis, remote history of tobacco use and dependence. Patient apparently was utilizing his nebulizer more frequently and was having increasing difficulty in breathing for the past 48 hours which continued to worsen and EMS was called. When they arrived, patient was in cardiopulmonary arrest and CPR was started and patient demonstrated PEA. 8 minutes of CPR were performed. When ER physician intubated the patient, patient's dentures were found causing obstruction. Patient is also had central line arterial line placed. Repeat EKG was a sinus rhythm with interventricular conduction delay and first degree AV block. CAT scan of the brain shows cerebral atrophy with no acute intracranial abnormality. Chest x-ray reveals moderately severe pulmonary edema consistent with acute heart failure. CTA of the chest reveals moderately severe pulmonary edema consistent with acute heart failure or ARDS. No evidence of pulmonary embolism. WBC 16.9, hemoglobin 15.6, platelet count 188. Sodium 138, potassium 5, chloride 106, CO2 13, BUN 21 creatinine 1.2, blood sugar 324. Troponin 0.017, 0.034, 0.057. Patient is seen today in the intensive care unit, he is intubated and on mechanical ventilation with tidal volume 450, FiO2 50, PEEP of 8. Patient is sedated, on levo fed, a miodarone and heparin drips. Patient is also on IV Lasix 40 mg every 8 hours. His urine output has been 30 mL per hour. Blood sugars are elevated currently on scale insulin. Consults in place with pulmonary medicine, cardiology, neurology to rule out anoxic brain injury. Repeat chest x-ray reveals improving pulmonary edema. Small right pleural effusion. Minimal left pleural effusion. Improving congestive heart failure. Echocardiogram reveals EF of 20-25% with moderate concentric left hypertrophy, mild mitral regurgitation, mild tricuspid regurgitation, moderate pulmonary hypertension. 06/27: Patient remains in the intensive care unit, intubated and on mechanical ventilation with tidal volume 450, FiO2 50, PEEP of 8. Repeat chest x-ray consistent with volume overload and fluid overload. He is on IV Lasix 40 mg every 8 hours. Cardiology is planning for heart catheterization to rule out severe underlying coronary artery disease. Dr. Skaf has changed IV amiodarone to oral. He is still on heparin drip. He is no longer on vasopressors. He has been afebrile, heart rate 86, blood pressure 159/64. Repeat blood work reveals WBC 14.9, hemoglobin 13. BUN 34 and creatinine 1.29. Blood sugars were elevated 162-248 patient started on insulin drip. Patient has been evaluated by neurology. Carotid ultrasound revealed bilateral left carotid bifurcation without significant flow limiting stenosis, right carotid artery cannot be visualized due to jugular vein catheter. EEG is severely abnormal due to diffuse background slowing and suppress activity. This is suggestive of ge neralized cerebral dysfunction consistent with patient's history of cardiac arrest and anoxic encephalopathy. No epileptiform activity. The patient is unresponsive but is on sedation. Family meeting to be scheduled for tomorrow. 06/28: Patient is seen today and remains in intensive care unit on mechanical ventilation. He is scheduled for a repeat EEG today without sedation. Patient's family met with Dr. Grey yesterday. He did go into A. fib with RVR currently on Cardizem drip at 5 mg and has been continued on heparin drip. Blood sugars are running in the 160s and Levemir added. Tube feedings to be resumed. Patient is afebrile, heart rate 142, respiratory rate 34, blood pressure 110/58, pulse ox 94%. Repeat WBC 13.5. Electrolytes normal, creatinine 0.94. REVIEW OF SYSTEMS Unable to obtain due to intubation. PHYSICAL EXAMINATION Gen: This is an obese 74-year-old male. Patient is in the ICU bed and appears to be comfortable on mechanical ventilation. HEENT: Head is atraumatic, normocephalic. Pupils equal, round. Sclerae is anicteric. ET tube placed orally. OJ tube orally. NECK: Supple. No JVD. No lymphadenopathy. No thyromegaly. LUNGS: Diminished bilaterally. No wheezes or rhonchi. No intercostal retrac tions. HEART: Regular rate and rhythm. No murmur. ABDOMEN: Soft. Bowel sounds hypoactive. No masses. No tenderness. Castaneda catheter with clear sarwat urine. EXTREMITIES: Mild bilateral pedal edema. No calf tenderness. NEUROLOGICAL: Patient is sedated. ASSESSMENT AND PLAN 1. Acute cardiac pulmonary arrest status post CPR for 8 minutes, PEA. 2. Acute hypoxic respiratory failure secondary to acute pulmonary edema, acute systolic heart failure. 3. Elevated troponin possibly related to cardiopulmonary arrest, rule out non- ST elevated myocardial infarction. Continue heparin drip, aspirin, statin. 4. Leukocytosis with concern for possible aspiration pneumonia during arrest. Continue Zosyn. 5. Acute kidney injury secondary to acute cardiopulmonary arrest and hypoperfusion. Continue Lasix, monitor urine output. 6. Possible anoxic encephalopathy. Consult with neurology appreciated. 7. Diabetes mellitus type 2 uncontrolled with hyperglycemia. Patient has been started on insulin drip. 8. Hypertension hypertensive cardiovascular disease. Patient is off vasopressor. 9. Hyperlipidemia. Continue statin. 10. Gastroesophageal reflux disease. Continue Protonix. 11. History of pulmonary embolism 8 years ago. 12. Obstructive sleep apnea on CPAP. 13. Atrial fibrillation with RVR, paroxysmal atrial fibrillation. Patient is on Cardizem drip and heparin drip. 14. DVT prophylaxis. Heparin drip. CODE STATUS: Full code Discharge plan: To be determined. Impression and plan of care have been directed as dictated by the signing physi cian. Robyn Montenegro nurse practitioner acting as scribe for signing physician. Objective - Vital Signs Vital signs: Vital Signs Temp 97.8 F 06/28/20 04:00 Pulse 100 06/28/20 11:16 Resp 34 H 06/28/20 07:00 BP 105/66 06/28/20 07:00 Pulse Ox 94 L 06/28/20 07:00 Intake & Output 06/27/20 06/28/20 06/28/20 18:59 06:59 18:59 Intake Total 895.756 276 399.184 Output Total 2540 3125 250 Balance -1644.244 -2849 149.184 Weight 117.9 kg 111.3 kg Intake: IV 256 156 13 0.9 Normal Saline 120 120 10 Normal Saline Pressure 36 36 3 Bag Piperacillin-Tazobactam 3 100 .375 gm In Sodium Chloride 0.9% 100 ml @ 25 mls/hr IVPB Q12HR [facility] Rx #:[id number] Intake, IV Titration 509.756 100 386.184 Amount Diltiazem 125 mg In 42.167 Sodium Chloride 0.9% 100 ml @ 10 MG/HR 10 mls/hr IV .[id number] [facility] Rx#: [id number] Heparin Sod,Pork in 0.45% 142.494 260.711 NaCl 25,000 unit In 0.45 % NaCl 1 250ml.bag @ 8 UNITS/KG/HR 9.181 mls/hr IV .Q24H [facility] Rx#: [id number] Magnesium Sulfate-D5w Pmx 100 1 gm In Dextrose/Water 1 100ml.bag @ 100 mls/hr IVPB Q1H [facility] Rx#: [id number] Norepinephrine 32 mg In 1.087 Sodium Chloride 0.9% 218 ml @ 0.05 MCG/KG/MIN 2. 609 mls/hr IV .Q24H [facility] Rx#:[id number] Piperacillin-Tazobactam 3 100 .375 gm In Sodium Chloride 0.9% 100 ml @ 25 mls/hr IVPB Q8HR [facility] Rx# :[id number] propofoL 1,000 mg In 167.262 100 82.219 Empty Bag 1 bag @ Titrate IV .Q0M [facility] Rx#: [id number] Tube Feeding 70 20 Other 60 Output: Urine 2540 3125 250 Other: Voiding Method Indwelling Catheter Indwelling Catheter Indwelling Catheter ABP, PAP, CO, CI - Last Documented Arterial Blood Pressure 110/58 - Labs CBC & Chem 7: 06/28/20 05:20 06/28/20 05:20 Labs: Abnormal Lab Results - Last 24 Hours (Table) 06/27/20 06/27/20 06/28/20 Range/Units 15:14 20:55 00:24 WBC (3.8-10.6) k/uL Neutrophils # (1.3-7.7) k/uL APTT (22.0-30.0) sec ABG pH (7.35-7.45) ABG pO2 (83-108) mmHg ABG HCO3 (21-25) mmol/L ABG Total CO2 (19-24) mmol/L BUN (9-20) mg/dL Glucose (74-99) mg/dL POC Glucose (mg/dL) 193 H 172 H 166 H (75-99) mg/dL ALT (4-49) U/L 06/28/20 06/28/20 06/28/20 Range/Units 05:20 05:20 06:00 WBC 14.5 H (3.8-10.6) k/uL Neutrophils # 11.3 H (1.3-7.7) k/uL APTT (22.0-30.0) sec ABG pH (7.35-7.45) ABG pO2 (83-108) mmHg ABG HCO3 (21-25) mmol/L ABG Total CO2 (19-24) mmol/L BUN 26 H (9-20) mg/dL Glucose 190 H (74-99) mg/dL POC Glucose (mg/dL) 161 H (75-99) mg/dL ALT 52 H (4-49) U/L 06/28/20 06/28/20 06/28/20 Range/Units 07:20 07:46 07:47 WBC (3.8-10.6) k/uL Neutrophils # (1.3-7.7) k/uL APTT 33.3 H (22.0-30.0) sec ABG pH 7.50 H (7.35-7.45) ABG pO2 69 L (83-108) mmHg ABG HCO3 29 H (21-25) mmol/L ABG Total CO2 30 H (19-24) mmol/L BUN (9-20) mg/dL Glucose (74-99) mg/dL POC Glucose (mg/dL) 165 H (75-99) mg/dL ALT (4-49) U/L 06/28/20 Range/Units 12:40 WBC (3.8-10.6) k/uL Neutrophils # (1.3-7.7) k/uL APTT (22.0-30.0) sec ABG pH (7.35-7.45) ABG pO2 (83-108) mmHg ABG HCO3 (21-25) mmol/L ABG Total CO2 (19-24) mmol/L BUN (9-20) mg/dL Glucose (74-99) mg/dL POC Glucose (mg/dL) 182 H (75-99) mg/dL ALT (4-49) U/L Microbiology - Last 24 Hours (Table) 06/26/20 09:16 Blood Culture - Preliminary Blood No Growth after 48 hours 06/26/20 08:37 Blood Culture - Preliminary Blood No Growth after 48 hours 06/25/20 23:20 Gram Stain - Final Sputum Sputum Culture - Final 06/26/20 02:55 Urine Culture - Final Urine,Voided
[2020-06-28 15:09] LABS: Glucose,Whole Blood 187 mg/dL (75-99)
[2020-06-28 15:28] LABS: Magnesium 1.5 mg/dL (1.6-2.3); Potassium 2.9 mmol/L (3.5-5.1)
[2020-06-28] MEDS: MAGNESIUM SULFATE-D5W PMX 1 GM in DEXTROSE/WATER 1 100ML.BAG IVPB SCH ×2 (16:07→17:25)
[2020-06-28] MEDS: POTASSIUM BICARBONATE/CIT AC 20 MEQ TABLET.EFF NG-TUBE SCH ×3 (16:27→19:26)
--- NOTE | 2020-06-28 16:58 | EEG ---
ELECTROENCEPHALOGRAM REPORT DATE OF SERVICE: 06/28/2020 PREAMBLE: This is a 74-year-old male with cardiac arrest. This is a follow-up EEG. EEG FINDINGS: This is a 21-channel portable EEG recording in a patient utilizing 10-20 international system with referential and bipolar montages. The recording starts and continues with the presence of moderate voltage, diffuse 4 hertz theta, with 1-2 hertz generalized delta activity. Some intermittent suppressed activity was seen. Photic driving response was not seen. At the end of photic stimulation, the patient developed high amplitude sharp-appearing waves in bihemispheric region, maximal frontal central bilaterally. No motor activity or clinical seizures were noted during this event. IMPRESSION: Abnormal EEG due to presence of background slowing of moderate to severe degree. This is suggestive of generalized cerebral dysfunction as can be seen with toxic metabolic encephalopathy or due to diffuse structural brain abnormality. During middle part of the study there was appearance of high-amplitude sharp waves in bihemispheric region, maximal in the frontal central. This is suggestive of underlying cortical irritability and tendency for seizures. Clinical correlation is recommended. Follow-up EEG recommended if clinically indicated. MMODL / IJN: [id number] / JOYCE
[2020-06-28] MEDS: levETIRAcetam IV 750 MG in SODIUM CHLORIDE 0.9% 100 ML IVPB SCH (19:31)
[2020-06-28] MEDS: ATORVASTATIN 80 MG TAB PO SCH (20:01)
[2020-06-28 20:09] LABS: Glucose,Whole Blood 236 mg/dL (75-99)
--- NOTE | 2020-06-28 21:33 | CT ---
EXAMINATION: CT brain wo con DATE AND TIME: 06/28/2020 6:41 PM CLINICAL INDICATION: PHH; altered mental status TECHNIQUE: Standard departmental protocol DLP: 1290.4 mGycm COMPARISON: CT 06/25/2020 FINDINGS: The calvarium is intact. There is no intracranial hemorrhage. There is no intracranial mass or mass effect. No definite new intra-axial or extra-axial attenuation defect. The paranasal sinuses, middle ear cavities, and mastoid sinus air cells are clear. The orbits are unremarkable. IMPRESSION: NO ACUTE PROCESS.
[2020-06-28] MEDS: POTASSIUM CHLORIDE 10 MEQ in WATER FOR INJECTION 1 100ML.BAG IVPB SCH ×2 (22:04→23:26)
[2020-06-29] MEDS: INSULIN ASPART (NovoLOG) 100 UNIT/ML VIAL SQ SCH ×7 (00:19→23:14)
[2020-06-29] MEDS: FUROSEMIDE 10 MG/ML 4 ML VIAL IV SCH ×4 (00:19→23:40)
[2020-06-29] MEDS: PIPERACILLIN-TAZOBACTAM 3.375 GM in SODIUM CHLORIDE 0.9% 100 ML IVPB SCH ×4 (00:19→23:03)
[2020-06-29 00:29] LABS: Glucose,Whole Blood 204 mg/dL (75-99)
[2020-06-29] MEDS: IPRATROPIUM-ALBUTEROL 3 ML NEB INHALATION SCH ×6 (00:29→19:26)
[2020-06-29 04:28] LABS: Glucose,Whole Blood 249 mg/dL (75-99)
[2020-06-29 04:29] LABS: Basophils # (A) 0.1 k/uL (0-0.2); Basophils % (A) 1 %; Eosinophils # (A) 0.2 k/uL (0-0.7); Eosinophils % (A) 1 %; HCT 38.3 % (39.0-53.0); Lymphocytes # (A) 2.8 k/uL (1.0-4.8); Lymphocytes % (A) 17 %; MCH 29.1 pg (25.0-35.0); MCHC 33.9 g/dL (31.0-37.0); MCV 85.9 fL (80.0-100.0); Mean Platelet Volume 6.8; Monocytes % (A) 6 %; Neutrophils # (A) 11.9 k/uL (1.3-7.7); Neutrophils % (A) 73 %; Platelet Count 209 k/uL (150-450); RBC 4.46 m/uL (4.30-5.90); WBC 16.4 k/uL (3.8-10.6)
[2020-06-29 05:02] LABS: African American GFR (CKD) >90 (>60 ml/min/1.73 sqM); Anion Gap 8 mmol/L; Blood Urea Nitrogen 32 mg/dL (9-20); Calcium 8.6 mg/dL (8.4-10.2); Carbon Dioxide 29 mmol/L (22-30); Chloride 101 mmol/L (98-107); Glucose 246 mg/dL (74-99); Non-African American GFR(CKD) 78 (>60 ml/min/1.73 sqM); Potassium 3.8 mmol/L (3.5-5.1); Sodium 138 mmol/L (137-145)
[2020-06-29] MEDS ORDERED: POTASSIUM BICARBONATE/CIT AC 20 MEQ TABLET.EFF NG-TUBE SCH (06:00)
[2020-06-29] MEDS: INSULIN DETEMIR (LEVEMIR) 100 UNIT/ML SYR SQ SCH (06:34)
[2020-06-29 06:44] LABS: Glucose,Whole Blood 236 mg/dL (75-99)
[2020-06-29] MEDS: NOREPINEPHRINE 32 MG in SODIUM CHLORIDE 0.9% 218 ML IV SCH (07:16)
[2020-06-29 07:51] LABS: ABG HCO3 30 mmol/L (21-25); ABG Oxygen Saturation 96.2 % (94-97); ABG PCO2 45 mmHg (35-45); ABG PH 7.44 (7.35-7.45); ABG PO2 86 mmHg (83-108); ABG TCO2 32 mmol/L (19-24); Allen Test Performed? Yes
[2020-06-29] MEDS: AMIODARONE 200 MG TAB PO SCH ×2 (08:03→23:02)
[2020-06-29] MEDS: ASPIRIN 81 MG PO SCH (08:03)
[2020-06-29] MEDS: CHLORHEXIDINE GLUCONATE 15 ML CUP MUCOUS MEM SCH ×2 (08:03→23:02)
[2020-06-29] MEDS: PANTOPRAZOLE 40 MG/10 ML VIAL IVP SCH (08:03)
[2020-06-29 08:08] LABS: Glucose,Whole Blood 231 mg/dL (75-99)
--- NOTE | 2020-06-29 08:26 | XR ---
EXAMINATION TYPE: XR chest 1V portable DATE OF EXAM: 06/29/2020 COMPARISON: 06/28/2020 INDICATION: Tube placement TECHNIQUE: Frontal and lateral views of the chest are obtained. Patient is rotated to the left FINDINGS: The heart size is borderline in size. The pulmonary vasculature is prominent. Right lower lobe infiltrate is present. Small left pleural effusion is present. Right central venous catheter is present with the tip in the proximal right atrium. Endotracheal tube tip is above the sina. Nasogastric tube transverses the thorax with tip in the left upper quadrant of the abdomen. IMPRESSION: 1. Right lower lobe infiltrate developing. 2. Small left pleural effusion. 3. Lines and catheters discussed above
--- NOTE | 2020-06-29 08:34 | P.PN ---
Subjective Progress Note Date: 06/29/20 Principal diagnosis: Acute respiratory failure This is a 74-year-old gentleman with requested to see and do a cardiac consult. Currently the patient is intubated and he is on mechanical ventilation. The history was taken from the chart as well as from the nurse taking care of the patient. The patient is a 74-year-old gentleman with diabetes and hypertension and dyslipidemia and also history of pulmonary embolism in the past was in his usual state of health yesterday when he was sitting at home and suddenly he developed shortness of breath. He asked his to call ambulance. Ambulance was called and on the way to the emergency department the patient was hypoxic with oxygen saturation around 60%. Upon arrival the patient was diaphoresis and also he developed cardiopulmonary arrest where he developed pulseless electrical activity. CPR was performed and the patient was brought into normal sinus mechanism. The EKG after CPR revealed sinus rhythm with interventricular conduction delay and first-degree AV block. No indication that the patient was experiencing any symptoms of chest pain or chest discomfort around the episode. The shortness of breath was of sudden onset. There was some concern regarding PE and because of that the patient was taken emergently to the computed tomography scan where he underwent a CTA and that showed no pulmonary embolism b ut it did show severe pulmonary edema. Also a computed tomography scan of the brain was performed and showed no evidence of any intracranial bleeding. The blood work showed elevated troponin. The first set of troponin came in to be normal but subsequent 2 sets came in to be slightly abnormal. The patient was seen today June [id number]. He remains intubated on mechanical ventilation. Hemodynamically he is stable. Unfortunately there is a big concern regarding anoxic encephalopathy and it is possible that the patient is going to be hospice. Objective - Vital Signs Vital signs: Vital Signs Temp 99 F 06/29/20 04:00 Pulse 78 06/29/20 08:21 Resp 24 06/29/20 07:00 BP 120/85 06/29/20 07:00 Pulse Ox 95 06/29/20 07:00 Intake & Output 06/28/20 06/29/20 06/29/20 18:59 06:59 18:59 Intake Total 9653.087 1860.013 309.947 Output Total 1171 1045 45 Balance 465.814 452.013 264.947 Weight 112 kg Intake: IV 223 366 23 0.9 Normal Saline 190 230 20 Normal Saline Pressure 33 36 3 Bag Piperacillin-Tazobactam 3 100 .375 gm In Sodium Chloride 0.9% 100 ml @ 25 mls/hr IVPB Q12HR [facility] Rx #:[id number] Intake, IV Titration 863.814 604.013 245.947 Amount Diltiazem 125 mg In 54.084 Sodium Chloride 0.9% 100 ml @ 10 MG/HR 10 mls/hr IV .[id number] [facility] Rx#: [id number] Heparin Sod,Pork in 0.45% 260.711 239.289 NaCl 25,000 unit In 0.45 % NaCl 1 250ml.bag @ 8 UNITS/KG/HR 9.181 mls/hr IV .Q24H [facility] Rx#: [id number] Magnesium Sulfate-D5w Pmx 200 1 gm In Dextrose/Water 1 100ml.bag @ 100 mls/hr IVPB Q1H [facility] Rx#: [id number] Norepinephrine 32 mg In 4.053 245.947 Sodium Chloride 0.9% 218 ml @ 0.05 MCG/KG/MIN 2. 609 mls/hr IV .Q24H [facility] Rx#:[id number] Piperacillin-Tazobactam 3 200 .375 gm In Sodium Chloride 0.9% 100 ml @ 25 mls/hr IVPB Q8HR [facility] Rx# :[id number] propofoL 1,000 mg In 144.966 364.724 Empty Bag 1 bag @ Titrate IV .Q0M [facility] Rx#: [id number] Tube Feeding 250 437 41 Other 300 90 Output: Urine 1171 1045 45 Other: Voiding Method Indwelling Catheter Indwelling Catheter ABP, PAP, CO, CI - Last Documented Arterial Blood Pressure 148/60 - Constitutional General appearance: Present: no acute distress - Respiratory Respiratory: bilateral: diminished - Cardiovascular Rhythm: regular Heart sounds: normal: S1, S2 - Labs CBC & Chem 7: 06/29/20 04:15 06/29/20 04:15 Labs: Abnormal Lab Results - Last 24 Hours (Table) 06/28/20 06/28/20 06/28/20 Range/Units 12:40 15:05 15:05 WBC (3.8-10.6) k/uL Hct (39.0-53.0) % Neutrophils # (1.3-7.7) k/uL APTT 53.5 H (22.0-30.0) sec ABG HCO3 (21-25) mmol/L ABG Total CO2 (19-24) mmol/L Potassium 2.9 L (3.5-5.1) mmol/L BUN (9-20) mg/dL Glucose (74-99) mg/dL POC Glucose (mg/dL) 182 H (75-99) mg/dL Magnesium 1.5 L (1.6-2.3) mg/dL 06/28/20 06/28/20 06/29/20 Range/Units 15:05 19:58 00:17 WBC (3.8-10.6) k/uL Hct (39.0-53.0) % Neutrophils # (1.3-7.7) k/uL APTT (22.0-30.0) sec ABG HCO3 (21-25) mmol/L ABG Total CO2 (19-24) mmol/L Potassium (3.5-5.1) mmol/L BUN (9-20) mg/dL Glucose (74-99) mg/dL POC Glucose (mg/dL) 187 H 236 H 204 H (75-99) mg/dL Magnesium (1.6-2.3) mg/dL 06/29/20 06/29/20 06/29/20 Range/Units 04:15 04:15 04:15 WBC 16.4 H (3.8-10.6) k/uL Hct 38.3 L (39.0-53.0) % Neutrophils # 11.9 H (1.3-7.7) k/uL APTT 45.7 H (22.0-30.0) sec ABG HCO3 (21-25) mmol/L ABG Total CO2 (19-24) mmol/L Potassium (3.5-5.1) mmol/L BUN 32 H (9-20) mg/dL Glucose 246 H (74-99) mg/dL POC Glucose (mg/dL) (75-99) mg/dL Magnesium (1.6-2.3) mg/dL 06/29/20 06/29/20 06/29/20 Range/Units 04:16 06:33 07:49 WBC (3.8-10.6) k/uL Hct (39.0-53.0) % Neutrophils # (1.3-7.7) k/uL APTT (22.0-30.0) sec ABG HCO3 30 H (21-25) mmol/L ABG Total CO2 32 H (19-24) mmol/L Potassium (3.5-5.1) mmol/L BUN (9-20) mg/dL Glucose (74-99) mg/dL POC Glucose (mg/dL) 249 H 236 H (75-99) mg/dL Magnesium (1.6-2.3) mg/dL 06/29/20 Range/Units 08:06 WBC (3.8-10.6) k/uL Hct (39.0-53.0) % Neutrophils # (1.3-7.7) k/uL APTT (22.0-30.0) sec ABG HCO3 (21-25) mmol/L ABG Total CO2 (19-24) mmol/L Potassium (3.5-5.1) mmol/L BUN (9-20) mg/dL Glucose (74-99) mg/dL POC Glucose (mg/dL) 231 H (75-99) mg/dL Magnesium (1.6-2.3) mg/dL Microbiology - Last 24 Hours (Table) 06/26/20 09:16 Blood Culture - Preliminary Blood No Growth after 48 hours 06/26/20 08:37 Blood Culture - Preliminary Blood No Growth after 48 hours 06/25/20 23:20 Gram Stain - Final Sputum Sputum Culture - Final Assessment and Plan Assessment: Assessment #1 pulmonary edema #2 acute respiratory failure #3 abnormal troponin #4 cardiac arrest #5 severe cardiomyopathy of unknown etiology Plan #1 continue Cardizem IV #2 continue amiodarone by mouth #3 continue heparin IV #4 follow-up with the patient
[2020-06-29] MEDS: levETIRAcetam IV 750 MG in SODIUM CHLORIDE 0.9% 100 ML IVPB SCH ×2 (08:53→23:01)
--- NOTE | 2020-06-29 10:45 | P.PN ---
Subjective Progress Note Date: 06/28/20 Patient was seen for a follow-up. Patient's was also present today. Patient showing no signs of clinical improvement. Currently on Diprivan 50 g, you have had 0.1, heparin IV and Cardizem. Objective - Vital Signs Vital signs: Vital Signs Temp 99.7 F H 06/28/20 16:00 Pulse 75 06/28/20 18:00 Resp 27 H 06/28/20 18:00 BP 118/75 06/28/20 18:00 Pulse Ox 94 L 06/28/20 18:00 Intake & Output 06/27/20 06/28/20 06/28/20 18:59 06:59 18:59 Intake Total 895.090 521 6327.814 Output Total 2540 3125 1171 Balance -1644.244 -2849 465.814 Weight 117.9 kg 111.3 kg Intake: IV 256 156 223 0.9 Normal Saline 120 120 190 Normal Saline Pressure 36 36 33 Bag Piperacillin-Tazobactam 3 100 .375 gm In Sodium Chloride 0.9% 100 ml @ 25 mls/hr IVPB Q12HR EM[facility] Rx #:[id number] Intake, IV Titration 509.756 100 863.814 Amount Diltiazem 125 mg In 54.084 Sodium Chloride 0.9% 100 ml @ 10 MG/HR 10 mls/hr IV .[id number] [facility] Rx#: [id number] Heparin Sod,Pork in 0.45% 142.494 260.711 NaCl 25,000 unit In 0.45 % NaCl 1 250ml.bag @ 8 UNITS/KG/HR 9.181 mls/hr IV .Q24H [facility] Rx#: [id number] Magnesium Sulfate-D5w Pmx 100 1 gm In Dextrose/Water 1 100ml.bag @ 100 mls/hr IVPB Q1H [facility] Rx#: [id number] Magnesium Sulfate-D5w Pmx 200 1 gm In Dextrose/Water 1 100ml.bag @ 100 mls/hr IVPB Q1H [facility] Rx#: [id number] Norepinephrine 32 mg In 4.053 Sodium Chloride 0.9% 218 ml @ 0.05 MCG/KG/MIN 2. 609 mls/hr IV .Q24H [facility] Rx#:[id number] Piperacillin-Tazobactam 3 100 200 .375 gm In Sodium Chloride 0.9% 100 ml @ 25 mls/hr IVPB Q8HR [facility] Rx# :[id number] propofoL 1,000 mg In 167.262 100 144.966 Empty Bag 1 bag @ Titrate IV .Q0M [facility] Rx#: [id number] Tube Feeding 70 20 250 Other 60 300 Output: Urine 2540 3125 1171 Other: Voiding Method Indwelling Catheter Indwelling Catheter Indwelling Catheter ABP, PAP, CO, CI - Last Documented Arterial Blood Pressure 125/59 - Exam Patient is currently comatose. Patient is sedated as well with propofol 50 g. Not responding to any painful stimuli. Pupils are round, and reacting. Oculocephalics are absent. Corneal is mildly present bilaterally. Per nursing report, patient has no gag or cough. He does breathe over the ventilator. Patient has no reflexes. Sometimes has triple flexion. Tone is equal. No obvious seizure activity noted. - Labs CBC & Chem 7: 06/29/20 04:15 06/29/20 04:15 Labs: Abnormal Lab Results - Last 24 Hours (Table) 06/27/20 06/28/20 06/28/20 Range/Units 20:55 00:24 05:20 WBC 14.5 H (3.8-10.6) k/uL Neutrophils # 11.3 H (1.3-7.7) k/uL APTT (22.0-30.0) sec ABG pH (7.35-7.45) ABG pO2 (83-108) mmHg ABG HCO3 (21-25) mmol/L ABG Total CO2 (19-24) mmol/L Potassium (3.5-5.1) mmol/L BUN (9-20) mg/dL Glucose (74-99) mg/dL POC Glucose (mg/dL) 172 H 166 H (75-99) mg/dL Magnesium (1.6-2.3) mg/dL ALT (4-49) U/L 06/28/20 06/28/20 06/28/20 Range/Units 05:20 06:00 07:20 WBC (3.8-10.6) k/uL Neutrophils # (1.3-7.7) k/uL APTT (22.0-30.0) sec ABG pH 7.50 H (7.35-7.45) ABG pO2 69 L (83-108) mmHg ABG HCO3 29 H (21-25) mmol/L ABG Total CO2 30 H (19-24) mmol/L Potassium (3.5-5.1) mmol/L BUN 26 H (9-20) mg/dL Glucose 190 H (74-99) mg/dL POC Glucose (mg/dL) 161 H (75-99) mg/dL Magnesium (1.6-2.3) mg/dL ALT 52 H (4-49) U/L 06/28/20 06/28/20 06/28/20 Range/Units 07:46 07:47 12:40 WBC (3.8-10.6) k/uL Neutrophils # (1.3-7.7) k/uL APTT 33.3 H (22.0-30.0) sec ABG pH (7.35-7.45) ABG pO2 (83-108) mmHg ABG HCO3 (21-25) mmol/L ABG Total CO2 (19-24) mmol/L Potassium (3.5-5.1) mmol/L BUN (9-20) mg/dL Glucose (74-99) mg/dL POC Glucose (mg/dL) 165 H 182 H (75-99) mg/dL Magnesium (1.6-2.3) mg/dL ALT (4-49) U/L 06/28/20 06/28/20 06/28/20 Range/Units 15:05 15:05 15:05 WBC (3.8-10.6) k/uL Neutrophils # (1.3-7.7) k/uL APTT 53.5 H (22.0-30.0) sec ABG pH (7.35-7.45) ABG pO2 (83-108) mmHg ABG HCO3 (21-25) mmol/L ABG Total CO2 (19-24) mmol/L Potassium 2.9 L (3.5-5.1) mmol/L BUN (9-20) mg/dL Glucose (74-99) mg/dL POC Glucose (mg/dL) 187 H (75-99) mg/dL Magnesium 1.5 L (1.6-2.3) mg/dL ALT (4-49) U/L Microbiology - Last 24 Hours (Table) 06/26/20 09:16 Blood Culture - Preliminary Blood No Growth after 48 hours 06/26/20 08:37 Blood Culture - Preliminary Blood No Growth after 48 hours 06/25/20 23:20 Gram Stain - Final Sputum Sputum Culture - Final 06/26/20 02:55 Urine Culture - Final Urine,Voided Assessment and Plan Assessment: * 74-year-old male with cardiopulmonary arrest, post CPR with downtime of 8 minutes. Patient at this time 40 hours post cardiac arrest not showing any meaningful response. Patient probably suffered from some degree of hypoxic anoxic injury from cardiac arrest. * Abnormal EEG showing signs of epileptiform activity. * Congestive heart failure * Probable non-STEMI * Acute kidney injury, aspiration pneumonia Plan: * Patient underwent EEG, which revealed moderate to severe background slowing. There is appearance of high amplitude sharp waves in bihemispheric region, ma ximal in the frontal central, suggestive of underlying cortical irritability and tendency for seizures. Patient has no clinical seizures documented otherwise. Patient will be empirically started on Keppra 750 mg IV twice a day. * Patient is not showing signs of clinical improvement. He is 65 hours post cardiac arrest as of now. We will reevaluate in the morning. * At present prognosis is guarded. * Your medical management. Neurology will follow. Discussed with patient's in detail.
[2020-06-29 11:45] VITALS: BMI 36.4
[2020-06-29 12:45] LABS: Glucose,Whole Blood 253 mg/dL (75-99)
--- NOTE | 2020-06-29 13:12 | P.PN ---
Subjective Progress Note Date: 06/29/20 Principal diagnosis: Cardiac arrest This is a 74-year-old white male, known history of hypertension, pulmonary embolism, obstructive sleep apnea syndrome, on CPAP, history of degenerative joint disease, dyslipidemia, and type 2 diabetes. Patient was brought in last night by EMS who responded to a call, patient complaining of sudden shortness of breath. Upon arrival to the scene, patient was noted to be extremely short of breath, hypoxic, O2 saturation was around 60%. He was also noted to be diaphoretic, and on the way down to ER, patient developed pulseless electrical a ctivity. CPR was initiated by EMS in route, and continued in the ER for a total of 8 minutes. Patient received 2 minutes of CPR prior to arrival to the emergency room. And upon arrival to the ER, resuscitation was continued per ACLS protocol. Definitive airway was established and according to the ER note, there was an airway obstruction noted, patient's dentures were noted in the back of his mouth obstructing the airway. These were removed prior to intubation. Right tibial IO was placed, and he received a single dose of epinephrine through with this IO patient also received 1 dose of epinephrine prior to coming to the ER by EMS. Return of spontaneous circulation was noted after epinephrine and approximately 8 minutes of CPR. Patient was sent for CT urogram of the chest, and it came back negative for pulmonary embolism, CT of the head was also negative. Patient was placed on amiodarone 4 atrial fibrillation with RVR and he was also placed on norepinephrine. Acid to the ICU on all these drips, and a right IJ central line was established by the ER physician. In the ICU, patient is on assist control rate of 26, tidal volume is 450 FiO2 100% and PEEP of 5. He is on heparin drip, norepinephrine at 0.09 mcg/kg/m, fentanyl 1 mcg/kg/h, up a fall at 50 mcg/kg/m, and amiodarone 0.5 mg/m. ABG shortly after my evaluation showed a pO2 of 233 pCO2 of 42 pH of 7.29. Hence his FiO2 was decreased down to 50%. WBC count was noted to be 17.9 hemoglobin is 14. Electrolytesenc normal BUN is 36 creatinine is 1.5 to chest x-ray showed bilateral interstitial edema/infiltrates. Patient was diuresed, and he was placed empirically on Zosyn. Patient is unresponsive to any stimuli, his fentanyl and propofol were placed on hold, hence I'm quite concerned about the possibility of anoxic brain injury considering his prolonged CPR, and I have recommended neurological evaluation. Echocardiogram showed global hypokinesis ejection fraction of 20- 25%. And there is moderate severe pulmonary hypertension. Patient was reevaluated today on 06/27/20, remains intubated and mechanically v entilated. His ventilator settings are assist control rate of 26 tidal volume is 450 FiO2 is 50% PEEP is at 8. ABG this morning showed a pO2 of 73 pCO2 of 37 pH of 7.41. ABG showed a pO2 of 73 pCO2 of 37 pH of 7.41. PTT is therapeutic at 50. Patient is on propofol at 35 mcg/kg/m. He is off norepinephrine since early this a.m. Patient remains on heparin. Chest x-ray continues to show evidence of pulmonary edema improved compared to yesterday, remains on Lasix at 40 mg IV push every 12 hours. Patient was seen yesterday by neurology, suspecting that the patient may have sustained anoxic brain injury, further neurological follow-up and workup is pending. Patient remains unresponsive, not following any instructions, earlier this morning he had upward gaze of his eyes, pupils were equally reactive, patient had no responses to any stimuli. He was taken off propofol and still no responses were noted. Patient became later on asynchronous with the ventilator, tachypneic and tachycardic and hypertensive. Hence we had to place him back on propofol. today is at bedside, and I d iscussed his condition with her explaining to her that he may have sustained anoxic brain injury/encephalopathy. And further discussions regarding his neurological status to be addressed by the neurologist. Labs were all reviewed CBC showed WBC 14.9 hemoglobin of 13 electrolytes are normal BUN is 34 creatinine is 1.29 Patient was reevaluated today on 06/24/20, remains in the ICU, intubated and m echanically ventilated. He is on assist control rate of 26 tidal volume is 450 FiO2 is 50% and PEEP of 8. ABG this morning showed a pO2 of 69 pCO2 of 37 pH of 7.50. PEEP was increased to 10. Patient remains on the prevent at 50 mcg/kg/m, heart exam at 5 mg and increase it to 10 mg per hour. Patient is presently in atrial fibrillation with RVR, this is being addressed by cardiology, he was alr wilian on amiodarone, and I increased his Cardizem to 10 mg per hour. Patient is also on enteral feeding, chest x-ray shows small left-sided pleural effusion, history of pulmonary edema is significantly improved compared to the last couple of days. Again his ABG is marginal. His mental status is no different today, patient is unresponsive to any stimuli. Although he is on a small dose of propofol. 15 mcg/kg/m. Patient remains on heparin, PTT is 53.3 electrolytes and renal profile are normal. WBC count is 14.5 hemoglobin 15.8. Patient was seen by neurology yesterday, and suspect that the patient has severe anoxic brain injury. was updated yesterday on his condition. And his condition was discussed by the neurologist with his also. The patient is seen today 06/29/2020 in follow-up in the intensive care unit. He remains intubated on mechanical ventilator with settings of assist control with a rate of 26, tidal volume 450, FiO2 50% and a PEEP of 10. Arterial blood gases reveal a P O2 of 86, pCO2 45, pH 7.44. White count 16.4. Hemoglobin 13.0. Sodium 138. Potassium 3.8. Creatinine 0.97. Propofol at 50 mcg/kg/m. He is receiving norepinephrine at 0.1 mcg/kg/m. Heparin drip at 17 units per kilogram per hour. Cardizem drip at 5 mg per hour. Remains on bronchodilators, antibiotics in the form of Zosyn. Protonix for GI prophylaxis. EEG reveals moderate to severe degree of background slowing. Suggestive of toxic metabolic encephalopathy or diffuse structural brain abnormality. Underlying cortical irritability and tendency for seizures. He's been initiated on Keppra. Computed tomography scan of the brain revealed no acute process. Chest x-ray reveals a right lower lobe infiltrate and small left pleural effusion. He is receiving tube feedings with no HPV at 41 ML's per hour which is goal. Objective - Vital Signs Vital signs: Vital Signs Temp 97.9 F 06/29/20 08:00 Pulse 87 06/29/20 12:26 Resp 26 H 06/29/20 12:00 BP 151/79 06/29/20 11:00 Pulse Ox 93 L 06/29/20 12:00 Intake & Output 06/28/20 06/29/20 06/29/20 18:59 06:59 18:59 Intake Total 4930.606 5562.013 944.286 Output Total 1171 1045 1120 Balance 465.814 452.013 -175.714 Weight 112 kg 112 kg Intake: IV 223 366 118 0.9 Normal Saline 190 230 100 Normal Saline Pressure 33 36 18 Bag Piperacillin-Tazobactam 3 100 .375 gm In Sodium Chloride 0.9% 100 ml @ 25 mls/hr IVPB Q12HR [facility] Rx #:[id number] Intake, IV Titration 863.814 604.013 549.286 Amount Diltiazem 125 mg In 54.084 Sodium Chloride 0.9% 100 ml @ 10 MG/HR 10 mls/hr IV .[id number] [facility] Rx#: [id number] Heparin Sod,Pork in 0.45% 260.711 239.289 NaCl 25,000 unit In 0.45 % NaCl 1 250ml.bag @ 8 UNITS/KG/HR 9.181 mls/hr IV .Q24H [facility] Rx#: [id number] Magnesium Sulfate-D5w Pmx 200 1 gm In Dextrose/Water 1 100ml.bag @ 100 mls/hr IVPB Q1H [facility] Rx#: [id number] Norepinephrine 32 mg In 4.053 245.947 Sodium Chloride 0.9% 218 ml @ 0.05 MCG/KG/MIN 2. 609 mls/hr IV .Q24H [facility] Rx#:[id number] Piperacillin-Tazobactam 3 200 100 .375 gm In Sodium Chloride 0.9% 100 ml @ 25 mls/hr IVPB Q8HR [facility] Rx# :[id number] levETIRAcetam IV 750 mg 100 In Sodium Chloride 0.9% 100 ml @ 400 mls/hr IVPB Q12HR [facility] Rx#:[id number] propofoL 1,000 mg In 144.966 364.724 103.339 Empty Bag 1 bag @ Titrate IV .Q0M [facility] Rx#: [id number] Tube Feeding 250 437 277 Other 300 90 Output: Urine 1171 1045 1120 Other: Voiding Method Indwelling Catheter Indwelling Catheter Indwelling Catheter ABP, PAP, CO, CI - Last Documented Arterial Blood Pressure 145/54 - Exam Gen: Revealed 74-year-old white male, obese. Intubated, sedated on mechanical ventilation. Appears comfortable on propofol Head: Atraumatic, normocephalic. Endotracheal tube and orogastric tube are intact. ENT: Pupils are pinpoint, no icterus, downward gaze of both eyes noted. no neck masses, no JVD, no stridor. Moist mucous membranes noted. LUNGS: symmetrical chest expansion, crackles at the bases, no rhonchi no whee zes. No chest retractions noted HEART: Normal S1 and S2, no S3 gallop, 2/6 systolic murmur thought the precordium. abdomen: Obese soft nontender no megaly no rebound hypoactive bowel sounds. neurologic: Unresponsive to any verbal or deep painful stimuli. Pupils equally reactive. Downward gaze of both eyes noted. extremities trace of bipedal edema. No calf tenderness. psychiatric: Could not be assessed. musculoskeletal: No deformities, could not assess muscle strength. - Labs CBC & Chem 7: 06/29/20 04:15 06/29/20 04:15 Labs: Abnormal Lab Results - Last 24 Hours (Table) 06/28/20 06/28/20 06/28/20 Range/Units 15:05 15:05 15:05 WBC (3.8-10.6) k/uL Hct (39.0-53.0) % Neutrophils # (1.3-7.7) k/uL APTT 53.5 H (22.0-30.0) sec ABG HCO3 (21-25) mmol/L ABG Total CO2 (19-24) mmol/L Potassium 2.9 L (3.5-5.1) mmol/L BUN (9-20) mg/dL Glucose (74-99) mg/dL POC Glucose (mg/dL) 187 H (75-99) mg/dL Magnesium 1.5 L (1.6-2.3) mg/dL 06/28/20 06/29/20 06/29/20 Range/Units 19:58 00:17 04:15 WBC 16.4 H (3.8-10.6) k/uL Hct 38.3 L (39.0-53.0) % Neutrophils # 11.9 H (1.3-7.7) k/uL APTT (22.0-30.0) sec ABG HCO3 (21-25) mmol/L ABG Total CO2 (19-24) mmol/L Potassium (3.5-5.1) mmol/L BUN (9-20) mg/dL Glucose (74-99) mg/dL POC Glucose (mg/dL) 236 H 204 H (75-99) mg/dL Magnesium (1.6-2.3) mg/dL 06/29/20 06/29/20 06/29/20 Range/Units 04:15 04:15 04:16 WBC (3.8-10.6) k/uL Hct (39.0-53.0) % Neutrophils # (1.3-7.7) k/uL APTT 45.7 H (22.0-30.0) sec ABG HCO3 (21-25) mmol/L ABG Total CO2 (19-24) mmol/L Potassium (3.5-5.1) mmol/L BUN 32 H (9-20) mg/dL Glucose 246 H (74-99) mg/dL POC Glucose (mg/dL) 249 H (75-99) mg/dL Magnesium (1.6-2.3) mg/dL 06/29/20 06/29/20 06/29/20 Range/Units 06:33 07:49 08:06 WBC (3.8-10.6) k/uL Hct (39.0-53.0) % Neutrophils # (1.3-7.7) k/uL APTT (22.0-30.0) sec ABG HCO3 30 H (21-25) mmol/L ABG Total CO2 32 H (19-24) mmol/L Potassium (3.5-5.1) mmol/L BUN (9-20) mg/dL Glucose (74-99) mg/dL POC Glucose (mg/dL) 236 H 231 H (75-99) mg/dL Magnesium (1.6-2.3) mg/dL 06/29/20 Range/Units 12:44 WBC (3.8-10.6) k/uL Hct (39.0-53.0) % Neutrophils # (1.3-7.7) k/uL APTT (22.0-30.0) sec ABG HCO3 (21-25) mmol/L ABG Total CO2 (19-24) mmol/L Potassium (3.5-5.1) mmol/L BUN (9-20) mg/dL Glucose (74-99) mg/dL POC Glucose (mg/dL) 253 H (75-99) mg/dL Magnesium (1.6-2.3) mg/dL Microbiology - Last 24 Hours (Table) 06/26/20 09:16 Blood Culture - Preliminary Blood No Growth after 72 hours 06/26/20 08:37 Blood Culture - Preliminary Blood No Growth after 72 hours 06/25/20 23:20 Gram Stain - Final Sputum Sputum Culture - Final Assessment and Plan Assessment: Impression: Cardiopulmonary arrest post-CPR, for 8 minutes. Presenting rhythm was pulseless electrical activity. Acute hypoxic respiratory failure secondary to cardiac arrest, and suspect acute systolic congestive heart failure. Improving based on the chest x-ray today. Possible non-ST elevation myocardial infarction Possible aspiration pneumonia hence the patient will be empirically placed on Zosyn. Acute kidney injury/acute tubular necrosis secondary to do pulmonary arrest and hypoperfusion. Resolved based on the labs today. Type 2 diabetes. Strongly suspect anoxic brain injury and encephalopathy , being followed by neurology. History of dyslipidemia History of hypertension History of GERD History of pulmonary embolism, 8 years ago. History of obstructive sleep apnea syndrome. Patient is on CPAP at home. And had previous sleep studies. Recommendation: The patient was seen and evaluated by Dr. Grey Chest x-ray, ABGs and labs reviewed Daily interruption of sedation Currently a DO NOT RESUSCITATE CODE STATUS Family is considering hospice/comfort care We'll continue with full supportive care for now We will continue to follow Critical care time 36 minutes I, the cosigning physician, performed a history & physical examination of the patient. Lungs sounds with crackles in the bases. Maintaining good O2 saturations in the 90s on 50% FiO2 via the mechanical ventilator. I discussed the assessment and plan of care with my nurse practitioner, Massiel Martinez. I attest to the above note as dictated by her.
--- NOTE | 2020-06-29 14:22 | P.PN ---
Subjective Progress Note Date: 06/29/20 HISTORY OF PRESENT ILLNESS This is a 74-year-old male patient of Dr. Sky with past medical history of hypertension, hyperlipidemia, diabetes mellitus type 2, gastric esophageal reflux disease, history of pulmonary embolism, obstructive sleep apnea with CPAP, generalized osteoarthritis, remote history of tobacco use and dependence. Patient apparently was utilizing his nebulizer more frequently and was having increasing difficulty in breathing for the past 48 hours which continued to worsen and EMS was called. When they arrived, patient was in cardiopulmonary arrest and CPR was started and patient demonstrated PEA. 8 minutes of CPR were performed. When ER physician intubated the patient, patient's dentures were found causing obstruction. Patient is also had central line arterial line placed. Repeat EKG was a sinus rhythm with interventricular conduction delay and first degree AV block. CAT scan of the brain shows cerebral atrophy with no acute intracranial abnormality. Chest x-ray reveals moderately severe pulmonary edema consistent with acute heart failure. CTA of the chest reveals moderately severe pulmonary edema consistent with acute heart failure or ARDS. No evidence of pulmonary embolism. WBC 16.9, hemoglobin 15.6, platelet count 188. Sodium 138, potassium 5, chloride 106, CO2 13, BUN 21 creatinine 1.2, blood sugar 324. Troponin 0.017, 0.034, 0.057. Patient is seen today in the intensive care unit, he is intubated and on mechanical ventilation with tidal volume 450, FiO2 50, PEEP of 8. Patient is sedated, on levo fed, a miodarone and heparin drips. Patient is also on IV Lasix 40 mg every 8 hours. His urine output has been 30 mL per hour. Blood sugars are elevated currently on scale insulin. Consults in place with pulmonary medicine, cardiology, neurology to rule out anoxic brain injury. Repeat chest x-ray reveals improving pulmonary edema. Small right pleural effusion. Minimal left pleural effusion. Improving congestive heart failure. Echocardiogram reveals EF of 20-25% with moderate concentric left hypertrophy, mild mitral regurgitation, mild tricuspid regurgitation, moderate pulmonary hypertension. 06/27: Patient remains in the intensive care unit, intubated and on mechanical ventilation with tidal volume 450, FiO2 50, PEEP of 8. Repeat chest x-ray consistent with volume overload and fluid overload. He is on IV Lasix 40 mg every 8 hours. Cardiology is planning for heart catheterization to rule out severe underlying coronary artery disease. Dr. Cano has changed IV amiodarone to oral. He is still on heparin drip. He is no longer on vasopressors. He has been afebrile, heart rate 86, blood pressure 159/64. Repeat blood work reveals WBC 14.9, hemoglobin 13. BUN 34 and creatinine 1.29. Blood sugars were elevated 162-248 patient started on insulin drip. Patient has been evaluated by neurology. Carotid ultrasound revealed bilateral left carotid bifurcation without significant flow limiting stenosis, right carotid artery cannot be visualized due to jugular vein catheter. EEG is severely abnormal due to diffuse background slowing and suppress activity. This is suggestive of ge neralized cerebral dysfunction consistent with patient's history of cardiac arrest and anoxic encephalopathy. No epileptiform activity. The patient is unresponsive but is on sedation. Family meeting to be scheduled for tomorrow. 06/28: Patient is seen today and remains in intensive care unit on mechanical ventilation. He is scheduled for a repeat EEG today without sedation. Patient's family met with Dr. Grey yesterday. He did go into A. fib with RVR currently on Cardizem drip at 5 mg and has been continued on heparin drip. Blood sugars are running in the 160s and Levemir added. Tube feedings to be resumed. Patient is afebrile, heart rate 142, respiratory rate 34, blood pressure 110/58, pulse ox 94%. Repeat WBC 13.5. Electrolytes normal, creatinine 0.94. 06/29: Patient remains in intensive care unit intubated and on mechanical ventilation with tidal volume 450, FiO2 50 and PEEP of 10. Repeat blood work reveals WBC 16.4, hemoglobin 13, sodium 138, potassium 3.8, creatinine 0.97. Patient remains on norepinephrine and propofol. He is on heparin drip and Cardizem drip as well. Repeat EEG reveals moderate to severe degree of background slowing, toxic metabolic encephalopathy, underlying cortical irritability and tendency for seizures and started on Keppra. Family have decided to do a terminal wean and patient will be made comfort care at 1 PM when other family members arrive. REVIEW OF SYSTEMS Unable to obtain due to intubation. PHYSICAL EXAMINATION Gen: This is an obese 74-year-old male. Patient is in the ICU bed and appears to be comfortable on mechanical ventilation. HEENT: Head is atraumatic, normocephalic. Pupils equal, round. Sclerae is anicteric. ET tube placed orally. OJ tube orally. NECK: Supple. No JVD. No lymphadenopathy. No thyromegaly. LUNGS: Diminished bilaterally. No wheezes or rhonchi. No intercostal retractions. HEART: Regular rate and rhythm. No murmur. ABDOMEN: Soft. Bowel sounds hypoactive. No masses. No tenderness. Castaneda catheter with clear sarwat urine. EXTREMITIES: Mild bilateral pedal edema. No calf tenderness. NEUROLOGICAL: Patient is sedated. ASSESSMENT AND PLAN 1. Acute cardiac pulmonary arrest status post CPR for 8 minutes, PEA. 2. Acute hypoxic respiratory failure secondary to acute pulmonary edema, acute systolic heart failure. 3. Elevated troponin possibly related to cardiopulmonary arrest, rule out non- ST elevated myocardial infarction. 4. Leukocytosis with concern for possible aspiration pneumonia during arrest. 5. Acute kidney injury secondary to acute cardiopulmonary arrest and hypoperfusion. 6. Anoxic encephalopathy. 7. Diabetes mellitus type 2 uncontrolled with hyperglycemia. 8. Hypertension hypertensive cardiovascular disease. 9. Hyperlipidemia. 10. Gastroesophageal reflux disease. 11. History of pulmonary embolism 8 years ago. 12. Obstructive sleep apnea on CPAP. 13. Atrial fibrillation with RVR, paroxysmal atrial fibrillation. Plan: Terminal wean and comfort care. Impression and plan of care have been directed as dictated by the signing physician. Robyn Montenegro nurse practitioner acting as scribe for signing physician. Objective - Vital Signs Vital signs: Vital Signs Temp 97.9 F 06/29/20 08:00 Pulse 78 06/29/20 08:21 Resp 45 H 06/29/20 08:00 BP 124/73 06/29/20 08:00 Pulse Ox 95 06/29/20 08:00 Intake & Output 06/28/20 06/29/20 06/29/20 18:59 06:59 18:59 Intake Total 1090.784 6871.013 735.947 Output Total 1171 1045 295 Balance 465.814 452.013 440.947 Weight 112 kg Intake: IV 223 366 26 0.9 Normal Saline 190 230 20 Normal Saline Pressure 33 36 6 Bag Piperacillin-Tazobactam 3 100 .375 gm In Sodium Chloride 0.9% 100 ml @ 25 mls/hr IVPB Q12HR [facility] Rx #:[id number] Intake, IV Titration 863.814 604.013 545.947 Amount Diltiazem 125 mg In 54.084 Sodium Chloride 0.9% 100 ml @ 10 MG/HR 10 mls/hr IV .[id number] [facility] Rx#: [id number] Heparin Sod,Pork in 0.45% 260.711 239.289 NaCl 25,000 unit In 0.45 % NaCl 1 250ml.bag @ 8 UNITS/KG/HR 9.181 mls/hr IV .Q24H [facility] Rx#: [id number] Magnesium Sulfate-D5w Pmx 200 1 gm In Dextrose/Water 1 100ml.bag @ 100 mls/hr IVPB Q1H [facility] Rx#: [id number] Norepinephrine 32 mg In 4.053 245.947 Sodium Chloride 0.9% 218 ml @ 0.05 MCG/KG/MIN 2. 609 mls/hr IV .Q24H [facility] Rx#:[id number] Piperacillin-Tazobactam 3 200 100 .375 gm In Sodium Chloride 0.9% 100 ml @ 25 mls/hr IVPB Q8HR [facility] Rx# :[id number] levETIRAcetam IV 750 mg 100 In Sodium Chloride 0.9% 100 ml @ 400 mls/hr IVPB Q12HR [facility] Rx#:[id number] propofoL 1,000 mg In 144.966 364.724 100 Empty Bag 1 bag @ Titrate IV .Q0M [facility] Rx#: [id number] Tube Feeding 250 437 164 Other 300 90 Output: Urine 1171 1045 295 Other: Voiding Method Indwelling Catheter Indwelling Catheter ABP, PAP, CO, CI - Last Documented Arterial Blood Pressure 130/54 - Labs CBC & Chem 7: 06/29/20 04:15 06/29/20 04:15 Labs: Abnormal Lab Results - Last 24 Hours (Table) 06/28/20 06/28/20 06/28/20 Range/Units 12:40 15:05 15:05 WBC (3.8-10.6) k/uL Hct (39.0-53.0) % Neutrophils # (1.3-7.7) k/uL APTT 53.5 H (22.0-30.0) sec ABG HCO3 (21-25) mmol/L ABG Total CO2 (19-24) mmol/L Potassium 2.9 L (3.5-5.1) mmol/L BUN (9-20) mg/dL Glucose (74-99) mg/dL POC Glucose (mg/dL) 182 H (75-99) mg/dL Magnesium 1.5 L (1.6-2.3) mg/dL 06/28/20 06/28/20 06/29/20 Range/Units 15:05 19:58 00:17 WBC (3.8-10.6) k/uL Hct (39.0-53.0) % Neutrophils # (1.3-7.7) k/uL APTT (22.0-30.0) sec ABG HCO3 (21-25) mmol/L ABG Total CO2 (19-24) mmol/L Potassium (3.5-5.1) mmol/L BUN (9-20) mg/dL Glucose (74-99) mg/dL POC Glucose (mg/dL) 187 H 236 H 204 H (75-99) mg/dL Magnesium (1.6-2.3) mg/dL 06/29/20 06/29/20 06/29/20 Range/Units 04:15 04:15 04:15 WBC 16.4 H (3.8-10.6) k/uL Hct 38.3 L (39.0-53.0) % Neutrophils # 11.9 H (1.3-7.7) k/uL APTT 45.7 H (22.0-30.0) sec ABG HCO3 (21-25) mmol/L ABG Total CO2 (19-24) mmol/L Potassium (3.5-5.1) mmol/L BUN 32 H (9-20) mg/dL Glucose 246 H (74-99) mg/dL POC Glucose (mg/dL) (75-99) mg/dL Magnesium (1.6-2.3) mg/dL 06/29/20 06/29/20 06/29/20 Range/Units 04:16 06:33 07:49 WBC (3.8-10.6) k/uL Hct (39.0-53.0) % Neutrophils # (1.3-7.7) k/uL APTT (22.0-30.0) sec ABG HCO3 30 H (21-25) mmol/L ABG Total CO2 32 H (19-24) mmol/L Potassium (3.5-5.1) mmol/L BUN (9-20) mg/dL Glucose (74-99) mg/dL POC Glucose (mg/dL) 249 H 236 H (75-99) mg/dL Magnesium (1.6-2.3) mg/dL 06/29/20 Range/Units 08:06 WBC (3.8-10.6) k/uL Hct (39.0-53.0) % Neutrophils # (1.3-7.7) k/uL APTT (22.0-30.0) sec ABG HCO3 (21-25) mmol/L ABG Total CO2 (19-24) mmol/L Potassium (3.5-5.1) mmol/L BUN (9-20) mg/dL Glucose (74-99) mg/dL POC Glucose (mg/dL) 231 H (75-99) mg/dL Magnesium (1.6-2.3) mg/dL Microbiology - Last 24 Hours (Table) 06/26/20 09:16 Blood Culture - Preliminary Blood No Growth after 48 hours 06/26/20 08:37 Blood Culture - Preliminary Blood No Growth after 48 hours 06/25/20 23:20 Gram Stain - Final Sputum Sputum Culture - Final
[2020-06-29 16:14] LABS: Glucose,Whole Blood 212 mg/dL (75-99)
--- NOTE | 2020-06-29 16:36 | P.PN ---
Subjective Progress Note Date: 06/29/20 Patient was seen for a follow-up. Patient's was also present today. Patient showing no signs of clinical improvement. Patient has been off propofol since 9 AM. Levophed has been discontinued. Still on heparin. Objective - Vital Signs Vital signs: Vital Signs Temp 98.5 F 06/29/20 16:00 Pulse 97 06/29/20 16:10 Resp 26 H 06/29/20 16:00 BP 128/91 06/29/20 16:00 Pulse Ox 96 06/29/20 16:00 Intake & Output 06/28/20 06/29/20 06/29/20 18:59 06:59 18:59 Intake Total 1880.710 4171.013 1184.980 Output Total 1171 1045 1425 Balance 465.814 452.013 -240.020 Weight 112 kg 112 kg Intake: IV 223 366 210 0.9 Normal Saline 190 230 180 Normal Saline Pressure 33 36 30 Bag Piperacillin-Tazobactam 3 100 .375 gm In Sodium Chloride 0.9% 100 ml @ 25 mls/hr IVPB Q12HR [facility] Rx #:[id number] Intake, IV Titration 863.814 604.013 573.980 Amount Diltiazem 125 mg In 54.084 Sodium Chloride 0.9% 100 ml @ 10 MG/HR 10 mls/hr IV .[id number] [facility] Rx#: [id number] Heparin Sod,Pork in 0.45% 260.711 239.289 NaCl 25,000 unit In 0.45 % NaCl 1 250ml.bag @ 8 UNITS/KG/HR 9.181 mls/hr IV .Q24H [facility] Rx#: [id number] Magnesium Sulfate-D5w Pmx 200 1 gm In Dextrose/Water 1 100ml.bag @ 100 mls/hr IVPB Q1H [facility] Rx#: [id number] Norepinephrine 32 mg In 4.053 270.641 Sodium Chloride 0.9% 218 ml @ 0.05 MCG/KG/MIN 2. 609 mls/hr IV .Q24H [facility] Rx#:[id number] Piperacillin-Tazobactam 3 200 100 .375 gm In Sodium Chloride 0.9% 100 ml @ 25 mls/hr IVPB Q8HR [facility] Rx# :[id number] levETIRAcetam IV 750 mg 100 In Sodium Chloride 0.9% 100 ml @ 400 mls/hr IVPB Q12HR [facility] Rx#:[id number] propofoL 1,000 mg In 144.966 364.724 103.339 Empty Bag 1 bag @ Titrate IV .Q0M [facility] Rx#: [id number] Tube Feeding 250 437 401 Other 300 90 Output: Urine 1171 1045 1425 Other: Voiding Method Indwelling Catheter Indwelling Catheter Indwelling Catheter ABP, PAP, CO, CI - Last Documented Arterial Blood Pressure 125/53 - Exam Patient is currently comatose. Patient not on sedation. Not responding to any painful stimuli. Pupils are round, and reacting. Oculocephalics are absent. C orneal is mildly present bilaterally. Per nursing report, patient has no gag or cough. He does breathe over the ventilator. Patient has no reflexes. Sometimes has triple flexion. Tone is equal. No obvious seizure activity noted. - Labs CBC & Chem 7: 06/29/20 04:15 06/29/20 04:15 Labs: Abnormal Lab Results - Last 24 Hours (Table) 06/28/20 06/29/20 06/29/20 Range/Units 19:58 00:17 04:15 WBC 16.4 H (3.8-10.6) k/uL Hct 38.3 L (39.0-53.0) % Neutrophils # 11.9 H (1.3-7.7) k/uL APTT (22.0-30.0) sec ABG HCO3 (21-25) mmol/L ABG Total CO2 (19-24) mmol/L BUN (9-20) mg/dL Glucose (74-99) mg/dL POC Glucose (mg/dL) 236 H 204 H (75-99) mg/dL 06/29/20 06/29/20 06/29/20 Range/Units 04:15 04:15 04:16 WBC (3.8-10.6) k/uL Hct (39.0-53.0) % Neutrophils # (1.3-7.7) k/uL APTT 45.7 H (22.0-30.0) sec ABG HCO3 (21-25) mmol/L ABG Total CO2 (19-24) mmol/L BUN 32 H (9-20) mg/dL Glucose 246 H (74-99) mg/dL POC Glucose (mg/dL) 249 H (75-99) mg/dL 06/29/20 06/29/20 06/29/20 Range/Units 06:33 07:49 08:06 WBC (3.8-10.6) k/uL Hct (39.0-53.0) % Neutrophils # (1.3-7.7) k/uL APTT (22.0-30.0) sec ABG HCO3 30 H (21-25) mmol/L ABG Total CO2 32 H (19-24) mmol/L BUN (9-20) mg/dL Glucose (74-99) mg/dL POC Glucose (mg/dL) 236 H 231 H (75-99) mg/dL 06/29/20 06/29/20 Range/Units 12:44 16:13 WBC (3.8-10.6) k/uL Hct (39.0-53.0) % Neutrophils # (1.3-7.7) k/uL APTT (22.0-30.0) sec ABG HCO3 (21-25) mmol/L ABG Total CO2 (19-24) mmol/L BUN (9-20) mg/dL Glucose (74-99) mg/dL POC Glucose (mg/dL) 253 H 212 H (75-99) mg/dL Microbiology - Last 24 Hours (Table) 06/26/20 09:16 Blood Culture - Preliminary Blood No Growth after 72 hours 06/26/20 08:37 Blood Culture - Preliminary Blood No Growth after 72 hours Assessment and Plan Assessment: * 74-year-old male with cardiopulmonary arrest, post CPR with downtime of 8 minutes. Patient at this time >80 hours post cardiac arrest not showing any meaningful response. Patient probably suffered from some degree of hypoxic anoxic injury from cardiac arrest. * Abnormal EEG showing some epileptiform activity. * Congestive heart failure * Probable non-STEMI * Acute kidney injury, * Aspiration pneumonia Plan: * Patient's EEG from yesterday showed some intermittent high amplitude sharp activity in bifrontal central region. Keppra was initiated. Patient is still not showing any signs of clinical improvement even with Keppra. He is off sedation since 9 AM today. Continues to be comatose. * CT head showed no acute process. On my review, there is evidence of subtle loss of macias-white junction diffusely, suggestive of mild/subtle diffuse cerebral edema. * Repeat EEG was recommended, but was canceled as patient's family is considering hospice/comfort care. I informed patient's that some more time can be considered, although chance of significant/meaningful clinical recovery becomes less, with failure of improvement as the days progress. * At present prognosis is guarded to poor for meaningful recovery. * Your medical management. * Neurology coverage not available on the weekend.
[2020-06-29] MEDS: ATORVASTATIN 80 MG TAB PO SCH (23:02)
[2020-06-29 23:06] LABS: Glucose,Whole Blood 187 mg/dL (75-99)
[2020-06-30] MEDS: IPRATROPIUM-ALBUTEROL 3 ML NEB INHALATION SCH ×4 (00:03→11:24)
--- NOTE | 2020-06-30 06:00 | XR ---
EXAMINATION TYPE: XR chest 1V portable DATE OF EXAM: 06/30/2020 CLINICAL HISTORY: Difficulty breathing progress study. TECHNIQUE: Single AP portable semiupright view of the chest is obtained. COMPARISON: Chest x-ray from one day earlier and older studies. FINDINGS: Stable endotracheal and orogastric tubes. Stable right internal jugular central venous cat heter. Stable cardiomegaly. Improved aeration left lung base. Persistent right basilar opacity felt s lightly improved. Upper lungs remain clear without pneumothorax. Osseous structures are intact. IMPRESSION: Improving bibasilar opacities. Persistent right basilar acute infiltrate and/or atelectas is noted.
[2020-06-30] MEDS: INSULIN ASPART (NovoLOG) 100 UNIT/ML VIAL SQ SCH ×3 (06:19→12:42)
--- NOTE | 2020-06-30 07:17 | P.PN ---
Subjective Progress Note Date: 06/30/20 Principal diagnosis: Acute respiratory failure This is a 74-year-old gentleman with requested to see and do a cardiac consult. Currently the patient is intubated and he is on mechanical ventilation. The history was taken from the chart as well as from the nurse taking care of the patient. The patient is a 74-year-old gentleman with diabetes and hypertension and dyslipidemia and also history of pulmonary embolism in the past was in his usual state of health yesterday when he was sitting at home and suddenly he developed shortness of breath. He asked his to call ambulance. Ambulance was called and on the way to the emergency department the patient was hypoxic with oxygen saturation around 60%. Upon arrival the patient was diaphoresis and also he developed cardiopulmonary arrest where he developed pulseless electrical activity. CPR was performed and the patient was brought into normal sinus mechanism. The EKG after CPR revealed sinus rhythm with interventricular conduction delay and first-degree AV block. No indication that the patient was experiencing any symptoms of chest pain or chest discomfort around the episode. The shortness of breath was of sudden onset. There was some concern regarding PE and because of that the patient was taken emergently to the computed tomography scan where he underwent a CTA and that showed no pulmonary embolism b ut it did show severe pulmonary edema. Also a computed tomography scan of the brain was performed and showed no evidence of any intracranial bleeding. The blood work showed elevated troponin. The first set of troponin came in to be normal but subsequent 2 sets came in to be slightly abnormal. The patient was seen today June [id number]. He remains intubated on mechanical ventilation. Hemodynamically he is stable. Unfortunately there is a big concern regarding anoxic encephalopathy and it is possible that the patient is going to be hospice. Objective - Vital Signs Vital signs: Vital Signs Temp 97.7 F 06/30/20 04:00 Pulse 121 H 06/30/20 06:00 Resp 29 H 06/30/20 06:00 BP 117/103 06/30/20 06:00 Pulse Ox 94 L 06/30/20 06:00 Intake & Output 06/29/20 06/30/20 06/30/20 18:59 06:59 18:59 Intake Total 1392.980 400 Output Total 2257 2295 Balance -732.020 -1425 Weight 112 kg 110.7 kg Intake: IV 256 276 0.9 Normal Saline 220 240 Normal Saline Pressure 36 36 Bag Intake, IV Titration 673.980 Amount Norepinephrine 32 mg In 270.641 Sodium Chloride 0.9% 218 ml @ 0.05 MCG/KG/MIN 2. 609 mls/hr IV .Q24H [facility] Rx#:[id number] Piperacillin-Tazobactam 3 200 .375 gm In Sodium Chloride 0.9% 100 ml @ 25 mls/hr IVPB Q8HR [facility] Rx# :[id number] levETIRAcetam IV 750 mg 100 In Sodium Chloride 0.9% 100 ml @ 400 mls/hr IVPB Q12HR [facility] Rx#:[id number] propofoL 1,000 mg In 103.339 Empty Bag 1 bag @ Titrate IV .Q0M [facility] Rx#: [id number] Tube Feeding 463 124 Output: Urine 2125 1825 Other: Voiding Method Indwelling Catheter Indwelling Catheter ABP, PAP, CO, CI - Last Documented Arterial Blood Pressure 125/67 - Constitutional General appearance: Present: no acute distress - Respiratory Respiratory: bilateral: diminished - Labs CBC & Chem 7: 06/29/20 04:15 06/29/20 04:15 Labs: Abnormal Lab Results - Last 24 Hours (Table) 06/29/20 06/29/20 06/29/20 Range/Units 07:49 08:06 12:44 ABG HCO3 30 H (21-25) mmol/L ABG Total CO2 32 H (19-24) mmol/L POC Glucose (mg/dL) 231 H 253 H (75-99) mg/dL 06/29/20 06/29/20 Range/Units 16:13 23:04 ABG HCO3 (21-25) mmol/L ABG Total CO2 (19-24) mmol/L POC Glucose (mg/dL) 212 H 187 H (75-99) mg/dL Microbiology - Last 24 Hours (Table) 06/26/20 09:16 Blood Culture - Preliminary Blood No Growth after 72 hours 06/26/20 08:37 Blood Culture - Preliminary Blood No Growth after 72 hours Assessment and Plan Assessment: Assessment #1 pulmonary edema #2 acute respiratory failure #3 abnormal troponin #4 cardiac arrest #5 severe cardiomyopathy of unknown etiology Plan #1 continue Cardizem IV #2 continue amiodarone by mouth #3 continue heparin IV #4 follow-up with the patient
[2020-06-30] MEDS: DILTIAZEM 125 MG in SODIUM CHLORIDE 0.9% 100 ML IV SCH (08:29)
[2020-06-30] MEDS: PANTOPRAZOLE 40 MG/10 ML VIAL IVP SCH (08:29)
[2020-06-30] MEDS: INSULIN DETEMIR (LEVEMIR) 100 UNIT/ML SYR SQ SCH (08:29)
[2020-06-30] MEDS: CHLORHEXIDINE GLUCONATE 15 ML CUP MUCOUS MEM SCH (08:29)
[2020-06-30] MEDS: AMIODARONE 200 MG TAB PO SCH (08:29)
[2020-06-30] MEDS: FUROSEMIDE 10 MG/ML 4 ML VIAL IV SCH (08:29)
[2020-06-30] MEDS: ASPIRIN 81 MG PO SCH (08:29)
[2020-06-30] MEDS: PIPERACILLIN-TAZOBACTAM 3.375 GM in SODIUM CHLORIDE 0.9% 100 ML IVPB SCH (08:30)
[2020-06-30] MEDS: levETIRAcetam IV 750 MG in SODIUM CHLORIDE 0.9% 100 ML IVPB SCH (08:30)
[2020-06-30 08:46] LABS: ABG Base Excess 9.8 mmol/L; ABG HCO3 33 mmol/L (21-25); ABG Oxygen Saturation 98.1 % (94-97); ABG PCO2 42 mmHg (35-45); ABG PO2 109 mmHg (83-108); ABG TCO2 34 mmol/L (19-24); Allen Test Performed? Yes
[2020-06-30 08:50] LABS: Glucose,Whole Blood 246 mg/dL (75-99)
[2020-06-30] MEDS: HEPARIN SOD,PORK IN 0.45% NACL 25,000 UNIT in 0.45% NACL 1 250ML.BAG IV SCH (08:55)
[2020-06-30 09:17] LABS: Basophils # (A) 0.1 k/uL (0-0.2); Basophils % (A) 1 %; Eosinophils % (A) 0 %; HCT 29.5 % (39.0-53.0); Lymphocytes # (A) 1.9 k/uL (1.0-4.8); Lymphocytes % (A) 20 %; MCH 28.4 pg (25.0-35.0); MCHC 32.8 g/dL (31.0-37.0); MCV 86.5 fL (80.0-100.0); Monocytes # (A) 0.7 k/uL (0-1.0); Monocytes % (A) 8 %; Neutrophils # (A) 6.4 k/uL (1.3-7.7); Neutrophils % (A) 68 %; Platelet Count 160 k/uL (150-450); RBC 3.41 m/uL (4.30-5.90); RDW 13.8 % (11.5-15.5); WBC 9.4 k/uL (3.8-10.6)
[2020-06-30 09:18] LABS: African American GFR (CKD) >90 (>60 ml/min/1.73 sqM); Anion Gap 7 mmol/L; Blood Urea Nitrogen 33 mg/dL (9-20); Carbon Dioxide 30 mmol/L (22-30); Chloride 105 mmol/L (98-107); Glucose 205 mg/dL (74-99); Non-African American GFR(CKD) 89 (>60 ml/min/1.73 sqM); Potassium 3.3 mmol/L (3.5-5.1); Sodium 142 mmol/L (137-145)
[2020-06-30 09:19] LABS: HGB 9.7 gm/dL (13.0-17.5)
[2020-06-30 09:26] VITALS: BP 125/103
[2020-06-30] MEDS: POTASSIUM BICARBONATE/CIT AC 20 MEQ TABLET.EFF NG-TUBE SCH ×2 (10:00→11:10)
[2020-06-30] MEDS: HEPARIN SODIUM,PORCINE 5,000 UNIT/ML 1 ML VIAL IV PRN (11:10)
[2020-06-30 11:55] LABS: Glucose,Whole Blood 220 mg/dL (75-99)
--- NOTE | 2020-06-30 12:44 | P.PN ---
Subjective Progress Note Date: 06/30/20 Principal diagnosis: Cardiac arrest This is a 74-year-old white male, known history of hypertension, pulmonary embolism, obstructive sleep apnea syndrome, on CPAP, history of degenerative joint disease, dyslipidemia, and type 2 diabetes. Patient was brought in last night by EMS who responded to a call, patient complaining of sudden shortness of breath. Upon arrival to the scene, patient was noted to be extremely short of breath, hypoxic, O2 saturation was around 60%. He was also noted to be diaphoretic, and on the way down to ER, patient developed pulseless electrical activity. CPR was initiated by EMS in route, and continued in the ER for a total of 8 minutes. Patient received 2 minutes of CPR prior to arrival to the emergency room. And upon arrival to the ER, resuscitation was continued per ACLS protocol. Definitive airway was established and according to the ER note, there was an airway obstruction noted, patient's dentures were noted in the back of his mouth obstructing the airway. These were removed prior to intubation. Right tibial IO was placed, and he received a single dose of epinephrine through with this IO patient also received 1 dose of epinephrine prior to coming to the ER by EMS. Return of spontaneous circulation was noted after epinephrine and approximately 8 minutes of CPR. Patient was sent for CT urogram of the chest, and it came back negative for pulmonary embolism, CT of the head was also negative. Patient was placed on amiodarone 4 atrial fibrillation with RVR and he was also placed on norepinephrine. Acid to the ICU on all these drips, and a right IJ central line was established by the ER physician. In the ICU, patient is on assist control rate of 26, tidal volume is 450 FiO2 100% and PEEP of 5. He is on heparin drip, norepinephrine at 0.09 mcg/kg/m, fentanyl 1 mcg/kg/h, up a fall at 50 mcg/kg/m, and amiodarone 0.5 mg/m. ABG shortly after my evaluation showed a pO2 of 233 pCO2 of 42 pH of 7.29. Hence his FiO2 was decreased down to 50%. WBC count was noted to be 17.9 hemoglobin is 14. Electrolytesenc normal BUN is 36 creatinine is 1.5 to chest x-ray showed bilateral interstitial edema/infiltrates. Patient was diuresed, and he was placed empirically on Zosyn. Patient is unresponsive to any stimuli, his fentanyl and propofol were placed on hold, hence I'm quite concerned about the possibility of anoxic brain injury considering his prolonged CPR, and I have recommended neurological evaluation. Echocardiogram showed global hypokinesis ejection fraction of 20- 25%. And there is moderate severe pulmonary hypertension. Patient was reevaluated today on 06/27/20, remains intubated and mechanically ve ntilated. His ventilator settings are assist control rate of 26 tidal volume is 450 FiO2 is 50% PEEP is at 8. ABG this morning showed a pO2 of 73 pCO2 of 37 pH of 7.41. ABG showed a pO2 of 73 pCO2 of 37 pH of 7.41. PTT is therapeutic at 50. Patient is on propofol at 35 mcg/kg/m. He is off norepinephrine since early this a.m. Patient remains on heparin. Chest x-ray continues to show evidence of pulmonary edema improved compared to yesterday, remains on Lasix at 40 mg IV push every 12 hours. Patient was seen yesterday by neurology, suspecting that the patient may have sustained anoxic brain injury, further neurological follow-up and workup is pending. Patient remains unresponsive, not following any instructions, earlier this morning he had upward gaze of his eyes, pupils were equally reactive, patient had no responses to any stimuli. He was taken off propofol and still no responses were noted. Patient became later on asynchronous with the ventilator, tachypneic and tachycardic and hypertensive. Hence we had to place him back on propofol. today is at bedside, and I di scussed his condition with her explaining to her that he may have sustained anoxic brain injury/encephalopathy. And further discussions regarding his neurological status to be addressed by the neurologist. Labs were all reviewed CBC showed WBC 14.9 hemoglobin of 13 electrolytes are normal BUN is 34 creatinine is 1.29 Patient was reevaluated today on 06/28/20, remains in the ICU, intubated and me chanically ventilated. He is on assist control rate of 26 tidal volume is 450 FiO2 is 50% and PEEP of 8. ABG this morning showed a pO2 of 69 pCO2 of 37 pH of 7.50. PEEP was increased to 10. Patient remains on the prevent at 50 mcg/kg/m, heart exam at 5 mg and increase it to 10 mg per hour. Patient is presently in atrial fibrillation with RVR, this is being addressed by cardiology, he was alre angela on amiodarone, and I increased his Cardizem to 10 mg per hour. Patient is also on enteral feeding, chest x-ray shows small left-sided pleural effusion, history of pulmonary edema is significantly improved compared to the last couple of days. Again his ABG is marginal. His mental status is no different today, patient is unresponsive to any stimuli. Although he is on a small dose of propofol. 15 mcg/kg/m. Patient remains on heparin, PTT is 53.3 electrolytes and renal profile are normal. WBC count is 14.5 hemoglobin 15.8. Patient was seen by neurology yesterday, and suspect that the patient has severe anoxic brain injury. was updated yesterday on his condition. And his condition was discussed by the neurologist with his also. Patient was reevaluated today on 06/30/20, remains in the ICU, intubated and mechanically ventilated. Patient is off propofol, and he is not responding to any deep painful stimuli or any verbal stimuli. His ventilator settings are assist control rate of 26, tidal volume is 450 FiO2 is 50% and PEEP is 10. ABG showed a pO2 of 109 pCO2 of 42 pH of 7.50. Patient has been off propofol for the last 24 hours. He is on Cardizem at 5 mg per hour. Not requiring any pressors. After reviewing his ABG, I cut down the PEEP down to 5. Family is still considering the issue of comfort care measures, but no final decision has been made. His son was in [place], and he is back in town, according to the nurse they may proceed with comfort care measures later on today. Patient obviously has severe anoxic brain injury, and neurologically no change, patient is not responsive to any stimuli. He is not showing any clinical signs of improvement. CBC is relatively normal electrolytes are normal potassium is a bit low at 3.3. Renal profile is normal Objective - Vital Signs Vital signs: Vital Signs Temp 98.2 F 06/30/20 08:00 Pulse 111 H 06/30/20 11:32 Resp 27 H 06/30/20 10:00 BP 125/103 06/30/20 09:00 Pulse Ox 93 L 06/30/20 10:00 Intake & Output 06/29/20 06/30/20 06/30/20 18:59 06:59 18:59 Intake Total 1767.980 400 290.22 Output Total 2125 1825 450 Balance -357.020 -1425 -159.78 Weight 112 kg 110.7 kg Intake: IV 256 276 215 0.9 Normal Saline 220 240 100 Normal Saline Pressure 36 36 15 Bag Piperacillin-Tazobactam 3 100 .375 gm In Sodium Chloride 0.9% 100 ml @ 25 mls/hr IVPB Q12HR [facility] Rx #:[id number] Intake, IV Titration 1048.980 44.22 Amount Diltiazem 125 mg In 125 Sodium Chloride 0.9% 100 ml @ 10 MG/HR 10 mls/hr IV .[id number] [facility] Rx#: [id number] Heparin Sod,Pork in 0.45% 250 44.22 NaCl 25,000 unit In 0.45 % NaCl 1 250ml.bag @ 8 UNITS/KG/HR 9.181 mls/hr IV .Q24H [facility] Rx#: [id number] Norepinephrine 32 mg In 270.641 0 Sodium Chloride 0.9% 218 ml @ 0.05 MCG/KG/MIN 2. 609 mls/hr IV .Q24H [facility] Rx#:[id number] Piperacillin-Tazobactam 3 200 .375 gm In Sodium Chloride 0.9% 100 ml @ 25 mls/hr IVPB Q8HR [facility] Rx# :[id number] levETIRAcetam IV 750 mg 100 In Sodium Chloride 0.9% 100 ml @ 400 mls/hr IVPB Q12HR [facility] Rx#:[id number] propofoL 1,000 mg In 103.339 0 Empty Bag 1 bag @ Titrate IV .Q0M [facility] Rx#: [id number] Tube Feeding 463 124 31 Output: Urine 21245 450 Other: Voiding Method Indwelling Catheter Indwelling Catheter Indwelling Catheter ABP, PAP, CO, CI - Last Documented Arterial Blood Pressure 115/40 - Exam Gen: Revealed 74-year-old white male, obese, in no distress. On mechanical ventilation. Head: Atraumatic, normocephalic. Endotracheal tube and orogastric tube are intact. ENT: Pupils are equally reactive., no icterus, downward gaze of both eyes noted. no neck masses, no JVD, no stridor. Moist mucous membranes noted. LUNGS: symmetrical chest expansion, crackles at the bases, no rhonchi no wheezes. No chest retractions noted HEART: Normal S1 and S2, no S3 gallop, 2/6 systolic murmur thought the precordium. abdomen: Obese soft nontender no megaly no rebound hypoactive bowel sounds. neurologic: Unresponsive to any verbal or deep painful stimuli. Pupils equally reactive. Downward gaze of both eyes noted. extremities trace of bipedal edema. No calf tenderness. psychiatric: Could not be assessed. musculoskeletal: No deformities, could not assess muscle strength. - Labs CBC & Chem 7: 06/30/20 08:16 06/30/20 08:16 Labs: Abnormal Lab Results - Last 24 Hours (Table) 06/29/20 06/29/20 06/29/20 Range/Units 12:44 16:13 23:04 RBC (4.30-5.90) m/uL Hgb (13.0-17.5) gm/dL Hct (39.0-53.0) % ABG pH (7.35-7.45) ABG pO2 (83-108) mmHg ABG HCO3 (21-25) mmol/L ABG Total CO2 (19-24) mmol/L ABG O2 Saturation (94-97) % Potassium (3.5-5.1) mmol/L BUN (9-20) mg/dL Glucose (74-99) mg/dL POC Glucose (mg/dL) 253 H 212 H 187 H (75-99) mg/dL Calcium (8.4-10.2) mg/dL 06/30/20 06/30/20 06/30/20 Range/Units 08:16 08:16 08:44 RBC 3.41 L (4.30-5.90) m/uL Hgb 9.7 L D (13.0-17.5) gm/dL Hct 29.5 L (39.0-53.0) % ABG pH 7.50 H (7.35-7.45) ABG pO2 109 H (83-108) mmHg ABG HCO3 33 H (21-25) mmol/L ABG Total CO2 34 H (19-24) mmol/L ABG O2 Saturation 98.1 H (94-97) % Potassium 3.3 L (3.5-5.1) mmol/L BUN 33 H (9-20) mg/dL Glucose 205 H (74-99) mg/dL POC Glucose (mg/dL) (75-99) mg/dL Calcium 8.0 L (8.4-10.2) mg/dL 06/30/20 06/30/20 Range/Units 08:48 11:53 RBC (4.30-5.90) m/uL Hgb (13.0-17.5) gm/dL Hct (39.0-53.0) % ABG pH (7.35-7.45) ABG pO2 (83-108) mmHg ABG HCO3 (21-25) mmol/L ABG Total CO2 (19-24) mmol/L ABG O2 Saturation (94-97) % Potassium (3.5-5.1) mmol/L BUN (9-20) mg/dL Glucose (74-99) mg/dL POC Glucose (mg/dL) 246 H 220 H (75-99) mg/dL Calcium (8.4-10.2) mg/dL Microbiology - Last 24 Hours (Table) 06/26/20 09:16 Blood Culture - Preliminary Blood No Growth after 96 hours 06/26/20 08:37 Blood Culture - Preliminary Blood No Growth after 96 hours Assessment and Plan Assessment: Impression: Cardiopulmonary arrest post-CPR, for 8 minutes. Presenting rhythm was pulseless electrical activity. Acute hypoxic respiratory failure secondary to cardiac arrest, and suspect acute systolic congestive heart failure. Improving based on the chest x-ray today. Possible non-ST elevation myocardial infarction Possible aspiration pneumonia hence the patient will be empirically placed on Zosyn. Acute kidney injury/acute tubular necrosis secondary to do pulmonary arrest and hypoperfusion. Resolved based on the labs today. Type 2 diabetes. Strongly suspect anoxic brain injury and encephalopathy , being followed by neurology. History of dyslipidemia History of hypertension History of GERD History of pulmonary embolism, 8 years ago. History of obstructive sleep apnea syndrome. Patient is on CPAP at home. And had previous sleep studies. Recommendation: Continue ventilatory support. Continue Cardizem drip Continue nutritional support. Continue enteral feeding. Continue antibiotics. Empirically for presumptive aspiration pneumonia Continue diuretics for his pulmonary edema. Continue same ventilator settings except cut down the PEEP from 10-5. Continue heparin. Patient is in no shape to consider any weaning. Unless we proceed with terminal weaning. Patient is critically ill. Prognosis is poor.. Critical care time is 33 minutes Patient will likely go to comfort care measures after family's decision today. Time with Patient: Greater than 30
[2020-06-30] MEDS: NOREPINEPHRINE 32 MG in SODIUM CHLORIDE 0.9% 218 ML IV SCH (13:27)
[2020-06-30] MEDS ORDERED: ATROPINE OPHTH SOLN 1% 5ML BTL SUBLINGUAL PRN (13:31)
[2020-06-30] MEDS ORDERED: MORPHINE SULFATE 4 MG/ML SYRINGE IV PRN (13:31)
[2020-06-30] MEDS ORDERED: MORPHINE SULFATE 2 MG/ML SYRINGE IV PRN (13:31)
[2020-06-30] MEDS ORDERED: LORazepam 2 MG/ML INJ IV PRN (13:31)
[2020-06-30 13:37] VITALS: TEMP 99.2
[2020-06-30] MEDS ORDERED: MORPHINE SULFATE (100 MG/2 ML) 100 MG in SODIUM CHLORIDE 0.9% 100 ML IV SCH (13:45)
[2020-06-30] MEDS ORDERED: SCOPOLAMINE 1.5MG/72HR PATCH TRANSDERM SCH (14:00)
--- NOTE | 2020-06-30 14:54 | P.PN ---
Subjective Progress Note Date: 06/30/20 HISTORY OF PRESENT ILLNESS This is a 74-year-old male patient of Dr. Sky with past medical history of hypertension, hyperlipidemia, diabetes mellitus type 2, gastric esophageal reflux disease, history of pulmonary embolism, obstructive sleep apnea with CPAP, generalized osteoarthritis, remote history of tobacco use and dependence. Patient apparently was utilizing his nebulizer more frequently and was having increasing difficulty in breathing for the past 48 hours which continued to worsen and EMS was called. When they arrived, patient was in cardiopulmonary arrest and CPR was started and patient demonstrated PEA. 8 minutes of CPR were performed. When ER physician intubated the patient, patient's dentures were found causing obstruction. Patient is also had central line arterial line placed. Repeat EKG was a sinus rhythm with interventricular conduction delay and first degree AV block. CAT scan of the brain shows cerebral atrophy with no acute intracranial abnormality. Chest x-ray reveals moderately severe pulmonary edema consistent with acute heart failure. CTA of the chest reveals moderately severe pulmonary edema consistent with acute heart failure or ARDS. No evidence of pulmonary embolism. WBC 16.9, hemoglobin 15.6, platelet count 188. Sodium 138, potassium 5, chloride 106, CO2 13, BUN 21 creatinine 1.2, blood sugar 324. Troponin 0.017, 0.034, 0.057. Patient is seen today in the intensive care unit, he is intubated and on mechanical ventilation with tidal volume 450, FiO2 50, PEEP of 8. Patient is sedated, on levo fed, a miodarone and heparin drips. Patient is also on IV Lasix 40 mg every 8 hours. His urine output has been 30 mL per hour. Blood sugars are elevated currently on scale insulin. Consults in place with pulmonary medicine, cardiology, neurology to rule out anoxic brain injury. Repeat chest x-ray reveals improving pulmonary edema. Small right pleural effusion. Minimal left pleural effusion. Improving congestive heart failure. Echocardiogram reveals EF of 20-25% with moderate concentric left hypertrophy, mild mitral regurgitation, mild tricuspid regurgitation, moderate pulmonary hypertension. 06/27: Patient remains in the intensive care unit, intubated and on mechanical ventilation with tidal volume 450, FiO2 50, PEEP of 8. Repeat chest x-ray consistent with volume overload and fluid overload. He is on IV Lasix 40 mg every 8 hours. Cardiology is planning for heart catheterization to rule out severe underlying coronary artery disease. Dr. Cano has changed IV amiodarone to oral. He is still on heparin drip. He is no longer on vasopressors. He has been afebrile, heart rate 86, blood pressure 159/64. Repeat blood work reveals WBC 14.9, hemoglobin 13. BUN 34 and creatinine 1.29. Blood sugars were elevated 162-248 patient started on insulin drip. Patient has been evaluated by neurology. Carotid ultrasound revealed bilateral left carotid bifurcation without significant flow limiting stenosis, right carotid artery cannot be visualized due to jugular vein catheter. EEG is severely abnormal due to diffuse background slowing and suppress activity. This is suggestive of ge neralized cerebral dysfunction consistent with patient's history of cardiac arrest and anoxic encephalopathy. No epileptiform activity. The patient is unresponsive but is on sedation. Family meeting to be scheduled for tomorrow. 06/28: Patient is seen today and remains in intensive care unit on mechanical ventilation. He is scheduled for a repeat EEG today without sedation. Patient's family met with Dr. Grey yesterday. He did go into A. fib with RVR currently on Cardizem drip at 5 mg and has been continued on heparin drip. Blood sugars are running in the 160s and Levemir added. Tube feedings to be resumed. Patient is afebrile, heart rate 142, respiratory rate 34, blood pressure 110/58, pulse ox 94%. Repeat WBC 13.5. Electrolytes normal, creatinine 0.94. 06/29: Patient remains in intensive care unit intubated and on mechanical ventilation with tidal volume 450, FiO2 50 and PEEP of 10. Repeat blood work reveals WBC 16.4, hemoglobin 13, sodium 138, potassium 3.8, creatinine 0.97. Patient remains on norepinephrine and propofol. He is on heparin drip and Cardizem drip as well. Repeat EEG reveals moderate to severe degree of background slowing, toxic metabolic encephalopathy, underlying cortical irritability and tendency for seizures and started on Keppra. Family have decided to do a terminal wean and patient will be made comfort care at 1 PM when other family members arrive. 06/30 patient remains in the ICU intubated on mechanical ventilation with tidal volume 450, FiO2 50 and PEEP of 10. Patient has been off sedation within the improvement in mental status. Keppra was initiated to help with possible seizures as EEG was abnormal but no improvement was noted in patient's mental status. Oculocephalic reflex was absent. Evidence of diffuse cerebral edema noted. Patient was examined for anoxic encephalopathy by neurology. Spoke to patient's life in length who has decided to go for hospice and comfort care as patient has minimal chances of significant recovery as per neurology REVIEW OF SYSTEMS Unable to obtain due to intubation. PHYSICAL EXAMINATION Gen: This is an obese 74-year-old male. Patient is in the ICU bed and appears to be comfortable on mechanical ventilation. HEENT: Head is atraumatic, normocephalic. Pupils equal, round. Sclerae is anicteric. ET tube placed orally. OJ tube orally. NECK: Supple. No JVD. No lymphadenopathy. No thyromegaly. LUNGS: Diminished bilaterally. No wheezes or rhonchi. No intercostal retractions. HEART: Regular rate and rhythm. No murmur. ABDOMEN: Soft. Bowel sounds hypoactive. No masses. No tenderness. Castaneda catheter with clear sarwat urine. EXTREMITIES: Mild bilateral pedal edema. No calf tenderness. NEUROLOGICAL: Patient is sedated. ASSESSMENT AND PLAN 1. Acute cardiac pulmonary arrest status post CPR for 8 minutes, PEA. 2. Acute hypoxic respiratory failure secondary to acute pulmonary edema, acute systolic heart failure. 3. Elevated troponin possibly related to cardiopulmonary arrest, rule out non- ST elevated myocardial infarction. 4. Leukocytosis with concern for possible aspiration pneumonia during arrest. 5. Acute kidney injury secondary to acute cardiopulmonary arrest and hypoper fusion. 6. Acute Anoxic encephalopathy. 7. Diabetes mellitus type 2 uncontrolled with hyperglycemia. 8. Hypertension hypertensive cardiovascular disease. 9. Hyperlipidemia. 10. Gastroesophageal reflux disease. 11. History of pulmonary embolism 8 years ago. 12. Obstructive sleep apnea on CPAP. 13. Atrial fibrillation with RVR, paroxysmal atrial fibrillation. Plan: Terminal wean and comfort care. Objective - Vital Signs Vital signs: Vital Signs Temp 99.2 F 06/30/20 12:00 Pulse 92 06/30/20 13:00 Resp 32 H 06/30/20 13:00 BP 125/103 06/30/20 09:00 Pulse Ox 91 L 06/30/20 13:00 Intake & Output 06/29/20 06/30/20 06/30/20 18:59 06:59 18:59 Intake Total 1767.980 400 367.747 Output Total 2125 1825 675 Balance -357.020 -1425 -307.253 Weight 112 kg 110.7 kg Intake: IV 256 276 261 0.9 Normal Saline 220 240 140 Normal Saline Pressure 36 36 21 Bag Piperacillin-Tazobactam 3 100 .375 gm In Sodium Chloride 0.9% 100 ml @ 25 mls/hr IVPB Q12HR [facility] Rx #:[id number] Intake, IV Titration 1048.980 44.747 Amount Diltiazem 125 mg In 125 Sodium Chloride 0.9% 100 ml @ 10 MG/HR 10 mls/hr IV .[id number] [facility]IR Rx#: [id number] Heparin Sod,Pork in 0.45% 250 44.22 NaCl 25,000 unit In 0.45 % NaCl 1 250ml.bag @ 8 UNITS/KG/HR 9.181 mls/hr IV .Q24H [facility] Rx#: [id number] Morphine Sulfate (100 mg/ 0.527 2 ml) 100 mg In Sodium Chloride 0.9% 100 ml @ 1 MG/HR 1.02 mls/hr IV . Q24H [facility] Rx#:[id number] Norepinephrine 32 mg In 270.641 0 Sodium Chloride 0.9% 218 ml @ 0.05 MCG/KG/MIN 2. 609 mls/hr IV .Q24H [facility] Rx#:[id number] Piperacillin-Tazobactam 3 200 .375 gm In Sodium Chloride 0.9% 100 ml @ 25 mls/hr IVPB Q8HR [facility] Rx# :[id number] levETIRAcetam IV 750 mg 100 In Sodium Chloride 0.9% 100 ml @ 400 mls/hr IVPB Q12HR [facility] Rx#:[id number] propofoL 1,000 mg In 103.339 0 Empty Bag 1 bag @ Titrate IV .Q0M [facility] Rx#: [id number] Tube Feeding 463 124 62 Output: Urine 2125 1825 675 Other: Voiding Method Indwelling Catheter Indwelling Catheter Indwelling Catheter ABP, PAP, CO, CI - Last Documented Arterial Blood Pressure 90/44 - Labs CBC & Chem 7: 06/30/20 08:16 06/30/20 08:16 Labs: Abnormal Lab Results - Last 24 Hours (Table) 06/29/20 06/29/20 06/30/20 Range/Units 16:13 23:04 08:16 RBC 3.41 L (4.30-5.90) m/uL Hgb 9.7 L D (13.0-17.5) gm/dL Hct 29.5 L (39.0-53.0) % ABG pH (7.35-7.45) ABG pO2 (83-108) mmHg ABG HCO3 (21-25) mmol/L ABG Total CO2 (19-24) mmol/L ABG O2 Saturation (94-97) % Potassium (3.5-5.1) mmol/L BUN (9-20) mg/dL Glucose (74-99) mg/dL POC Glucose (mg/dL) 212 H 187 H (75-99) mg/dL Calcium (8.4-10.2) mg/dL 06/30/20 06/30/20 06/30/20 Range/Units 08:16 08:44 08:48 RBC (4.30-5.90) m/uL Hgb (13.0-17.5) gm/dL Hct (39.0-53.0) % ABG pH 7.50 H (7.35-7.45) ABG pO2 109 H (83-108) mmHg ABG HCO3 33 H (21-25) mmol/L ABG Total CO2 34 H (19-24) mmol/L ABG O2 Saturation 98.1 H (94-97) % Potassium 3.3 L (3.5-5.1) mmol/L BUN 33 H (9-20) mg/dL Glucose 205 H (74-99) mg/dL POC Glucose (mg/dL) 246 H (75-99) mg/dL Calcium 8.0 L (8.4-10.2) mg/dL 06/30/20 Range/Units 11:53 RBC (4.30-5.90) m/uL Hgb (13.0-17.5) gm/dL Hct (39.0-53.0) % ABG pH (7.35-7.45) ABG pO2 (83-108) mmHg ABG HCO3 (21-25) mmol/L ABG Total CO2 (19-24) mmol/L ABG O2 Saturation (94-97) % Potassium (3.5-5.1) mmol/L BUN (9-20) mg/dL Glucose (74-99) mg/dL POC Glucose (mg/dL) 220 H (75-99) mg/dL Calcium (8.4-10.2) mg/dL Microbiology - Last 24 Hours (Table) 06/26/20 09:16 Blood Culture - Preliminary Blood No Growth after 96 hours 06/26/20 08:37 Blood Culture - Preliminary Blood No Growth after 96 hours
[2020-06-30 16:24] VITALS: PULSE 128; RESP 18
--- NOTE | 2020-07-02 12:41 | CDI ---
Documentation Clarification Form Date: 07/02/20 From: Jennifer Kahn Phone: If you have a question about this query, please contact Elsa López, Final Expense Agent at [phone] between 8am and 5pm. Admit Date: 06/26/20 Discharge Date: 06/30/20 Patient Name: NAV HOWARD Visit Number: [id number] ATTENTION: The Clinical Documentation Specialists (CDI) and [facility] Coding Staff appreciate your assistance in clarifying documentation. Please respond to the clarification below the line at the bottom and electronically sign. The CDI & [facility] Coding staff will review the response and follow-up if needed. Please note: Queries are made part of the Legal Health Record. If you have any questions, please contact the author of this message via ITS. Dear Dr. Love Grey, Hypotension is documented in your procedure note on 06/26. Patient history/risk factors: s/p cardiac arrest, acute hypoxic respiratory failure, HTN w acute systolic CHF, acute kidney failure with tubular necrosis, cerebral edema, non-ST VT, anoxic brain damage, cardiomyopathy, pulm HTN, seizures, DM type II w hyperglycemia, PAF Clinical Indicators: BP during cardiac arrest: PEA, 98/65 & 117/60. IO inserted- hypotension requiring Epinephrine x 2. Vitals: T-97.5, P-76, R-12, BP-140/84, 110/63, 98/56, 90/52, 83/50, 91/63, 98/56, 90/52 Treatment: vasopressors In your professional opinion, can you please specify the type of shock if known? Cardiogenic Shock Cause Hypovolemic Shock Cause Hypotension Other, please specify Unable to determine MTDD
--- NOTE | 2020-07-04 11:51 | CDI ---
Documentation Clarification Form Date: 07/04/20 From: Jennifer Kahn Phone: If you have a question about this query, please contact Elsa López, Certified Bench Jeweler Technician at [phone] between 8am and 5pm. Admit Date: 06/26/20 Discharge Date: 06/30/20 Patient Name: NAV HOWARD Visit Number: [id number] ATTENTION: The Clinical Documentation Specialists (CDI) and [facility] Coding Staff appreciate your assistance in clarifying documentation. Please respond to the clarification below the line at the bottom and electronically sign. The CDI & [facility] Coding staff will review the response and follow-up if needed. Please note: Queries are made part of the Legal Health Record. If you have any questions, please contact the author of this message via ITS. Dear Dr. Love Grey, The patient presented in cardiac arrest. History/Risk Factors: cardiogenic shock, acute hypoxic respiratory failure, HTN w acute systolic CHF, acute kidney failure with tubular necrosis, cerebral edema, non-ST ME, anoxic brain damage, cardiomyopathy, pulm HTN, seizures, DM type II w hyperglycemia, PAF Clinical Indicators: Patient apparently was utilizing his nebulizer more frequently and was having increasing difficulty in breathing for the past 48 hours which continued to worsen and EMS was called.When they arrived, patient was in cardiopulmonary arrest and CPR was started and patient demonstrated PEA.8 minutes of CPR were performed.When ER physician intubated the patient, patient's dentures were found causing obstruction. Lab findings: Troponin:06/25-0.017, 06/26-0.034, 06/26-0.057l; BNP-951 06/25 Radiology findings: Moderately severe pulmonary edema is consistent with acute heart failure. Vital Signs: : T-97.5, P-76, R-12, BP-140/84, 110/63, 98/56, 90/52, 83/50, 91/63, 98/56, 90/52 Treatment: IV Amiodarone, IV Midazolam, IV Morepinephrine, IV Lasix Cardiology Consult: Pulmonary edema, acute respiratory failure, abnl troponin, cardiac arrest, multiple morbid conditions In your professional opinion, can you please clarify the cause of the cardiac arrest? Acute hypoxic respiratory failure Acute systolic congestive heart NSTEMI Other, please specify Unable to determine MTDD
--- NOTE | 2020-07-12 14:38 | P.DS ---
Providers Date of admission: 06/26/20 00:15 Expected date of discharge: 06/30/20 Attending physician: Dioni Rai Consults: 06/26/20 00:16 Consult Physician Stat Consulting Provider: Love Grey Consult Reason/Comments: ICU mgmgt Do you want consulting provider notified?: Already Contacted Consult Physician Urgent Consulting Provider: [facility] Consult Reason/Comments: cardiac arrest Do you want consulting provider notified?: Yes, Notify in am 06/26/20 09:44 Consult Physician Routine Consulting Provider: Kraig Coffman Consult Reason/Comments: anoxic brain injury/s/p arrest Do you want consulting provider notified?: Yes Primary care physician: [facility] Course: HISTORY OF PRESENT ILLNESS This is a 74-year-old male patient of Dr. Sky with past medical history of hypertension, hyperlipidemia, diabetes mellitus type 2, gastric esophageal reflux disease, history of pulmonary embolism, obstructive sleep apnea with CPAP, generalized osteoarthritis, remote history of tobacco use and dependence. Patient apparently was utilizing his nebulizer more frequently and was having increasing difficulty in breathing for the past 48 hours which continued to worsen and EMS was called. When they arrived, patient was in cardiopulmonary arrest and CPR was started and patient demonstrated PEA. 8 minutes of CPR were performed. When ER physician intubated the patient, patient's dentures were found causing obstruction. Patient is also had central line arterial line placed. Repeat EKG was a sinus rhythm with interventricular conduction delay and first degree AV block. CAT scan of the brain shows cerebral atrophy with no acute intracranial abnormality. Chest x-ray reveals moderately severe pulmonary edema consistent with acute heart failure. CTA of the chest reveals moderately severe pulmonary edema consistent with acute heart failure or ARDS. No evidence of pulmonary embolism. WBC 16.9, hemoglobin 15.6, platelet count 188. Sodium 138, potassium 5, chloride 106, CO2 13, BUN 21 creatinine 1.2, blood sugar 324. Troponin 0.017, 0.034, 0.057. Patient is seen today in the intensive care unit, he is intubated and on mechanical ventilation with tidal volume 450, FiO2 50, PEEP of 8. Patient is sedated, on levo fed, amiodarone and heparin drips. Patient is also on IV Lasix 40 mg every 8 hours. His urine output has been 30 mL per hour. Blood sugars are elevated currently on scale insulin. Consults in place with pulmonary medicine, cardiology, neurology to rule out anoxic brain injury. Repeat chest x-ray reveals improving pulmonary edema. Small right pleural effusion. Minimal left pleural effusion. Improving congestive heart failure. Echocardiogram reveals EF of 20-25% with moderate concentric left hypertrophy, mild mitral regurgitation, mild tricuspid regurgitation, moderate pulmonary hypertension. 06/27: Patient remains in the intensive care unit, intubated and on mechanical ventilation with tidal volume 450, FiO2 50, PEEP of 8. Repeat chest x-ray consistent with volume overload and fluid overload. He is on IV Lasix 40 mg every 8 hours. Cardiology is planning for heart catheterization to rule out severe underlying coronary artery disease. Dr. Cano has changed IV amiodarone to oral. He is still on heparin drip. He is no longer on vasopressors. He has been afebrile, heart rate 86, blood pressure 159/64. Repeat blood work reveals WBC 14.9, hemoglobin 13. BUN 34 and creatinine 1.29. Blood sugars were elevated 162-248 patient started on insulin drip. Patient has been evaluated by neurology. Carotid ultrasound revealed bilateral left carotid bifurcation without significant flow limiting stenosis, right carotid artery cannot be visualized due to jugular vein catheter. EEG is severely abnormal due to diffuse background slowing and suppress activity. This is suggestive of generalized cerebral dysfunction consistent with patient's history of cardiac arrest and anoxic encephalopathy. No epileptiform activity. The patient is unresponsive but is on sedation. Family meeting to be scheduled for tomorrow. 06/28: Patient is seen today and remains in intensive care unit on mechanical ventilation. He is scheduled for a repeat EEG today without sedation. Patient's family met with Dr. Grey yesterday. He did go into A. fib with RVR currently on Cardizem drip at 5 mg and has been continued on heparin drip. Blood sugars are running in the 160s and Levemir added. Tube feedings to be resumed. Patient is afebrile, heart rate 142, respiratory rate 34, blood pressure 110/58, pulse ox 94%. Repeat WBC 13.5. Electrolytes normal, creatinine 0.94. 06/29: Patient remains in intensive care unit intubated and on mechanical ventilation with tidal volume 450, FiO2 50 and PEEP of 10. Repeat blood work reveals WBC 16.4, hemoglobin 13, sodium 138, potassium 3.8, creatinine 0.97. Patient remains on norepinephrine and propofol. He is on heparin drip and Cardizem drip as well. Repeat EEG reveals moderate to severe degree of background slowing, toxic metabolic encephalopathy, underlying cortical irritability and tendency for seizures and started on Keppra. Family have decided to do a terminal wean and patient will be made comfort care at 1 PM when other family members arrive. 06/30 patient remains in the ICU intubated on mechanical ventilation with tidal volume 450, FiO2 50 and PEEP of 10. Patient has been off sedation within the improvement in mental status. Keppra was initiated to help with possible seizures as EEG was abnormal but no improvement was noted in patient's mental status. Oculocephalic reflex was absent. Evidence of diffuse cerebral edema noted. Patient was examined for anoxic encephalopathy by neurology. Spoke to patient's life in length who has decided to go for hospice and comfort care as patient has minimal chances of significant recovery as per neurology Patient was transitioned to comfort care and on June 30. Please see nursing documentation for details. ASSESSMENT AND PLAN 1. Acute cardiac pulmonary arrest status post CPR for 8 minutes, PEA. 2. Acute hypoxic respiratory failure secondary to acute pulmonary edema, acute systolic heart failure--preliminary cause of . 3. Elevated troponin possibly related to cardiopulmonary arrest, possible non- ST elevated myocardial infarction cannot be ruled out. 4. Leukocytosis with concern for possible aspiration pneumonia during arrest. 5. Acute kidney injury with acute tubular necrosis secondary to acute cardiopulmonary arrest and hypoperfusion, present on admission. 6. Acute Anoxic encephalopathy. 7. Cardiogenic shock requiring vasopressors. 8. Diabetes mellitus type 2 uncontrolled with hyperglycemia. 9. Hypertension hypertensive cardiovascular disease. 10. Hyperlipidemia. 11. Gastroesophageal reflux disease. 12. History of pulmonary embolism 8 years ago. 13. Obstructive sleep apnea on CPAP. 14. Atrial fibrillation with RVR, paroxysmal atrial fibrillation. Impression and plan of care have been directed as dictated by the signing physician. Robyn Montenegro nurse practitioner acting as scribe for signing physician. Patient Condition at Discharge: Undetermined Plan - Discharge Summary New Discharge Prescriptions: No Action Pravastatin Sodium [Pravachol] 10 mg PO HS Cetirizine HCl 10 mg PO DAILY Montelukast [Singulair] 10 mg PO HS metFORMIN HCL 1,000 mg PO BID glipiZIDE [Glucotrol] 20 mg PO BID amLODIPine BESYLATE [Norvasc] 10 mg PO DAILY Omeprazole 20 mg PO DAILY Losartan Potassium 100 mg PO DAILY Ibuprofen 800 mg PO Q6HR PRN PRN Reason: Pain Aspirin [Adult Low Dose Aspirin EC] 81 mg PO DAILY Dowell-3 Fatty Acids/Fish Oil [Fish Oil 1,000 mg Softgel] 2 cap PO DAILY Glucosam/Chond/Hyalu/Cf Borate [Move Free Joint Health Tablet] 2 tab PO DAILY hydroCHLOROthiazide 25 mg PO DAILY L.acidoph,Paracasei, B.lactis [Probiotic] 1 cap PO DAILY HYDROcodone/APAP 10-325MG [[place] 10-325] 1 tab PO TID PRN PRN Reason: Pain Famotidine 40 mg PO DAILY Cholecalciferol [Vitamin D3 (25 Mcg = 1000 Iu)] 2,000 unit PO DAILY Ammonium Lactate Lotion [Lac-Hydrin 12% Lotion] 1 applic TOPICAL BID PRN PRN Reason: Dry Skin Lidocaine 5% Patch [Lidoderm] 1 patch TOPICAL DAILY Fluticasone Nasal [place] [Flonase Nasal [place]] 1 spr EA NOSTRIL BID Discharge Medication List Aspirin [Adult Low Dose Aspirin EC] 81 mg PO DAILY 06/11/18 [History] Cetirizine HCl 10 mg PO DAILY 06/11/18 [History] Ibuprofen 800 mg PO Q6HR PRN 06/11/18 [History] Losartan Potassium 100 mg PO DAILY 06/11/18 [History] Montelukast [Singulair] 10 mg PO HS 06/11/18 [History] Omeprazole 20 mg PO DAILY 06/11/18 [History] Pravastatin Sodium [Pravachol] 10 mg PO HS 06/11/18 [History] amLODIPine BESYLATE [Norvasc] 10 mg PO DAILY 06/11/18 [History] glipiZIDE [Glucotrol] 20 mg PO BID 06/11/18 [History] metFORMIN HCL 1,000 mg PO BID 06/11/18 [History] Glucosam/Chond/Hyalu/Cf Borate [Move Free Joint Health Tablet] 2 tab PO DAILY 06/25/20 [History] L.acidoph,Paracasei, B.lactis [Probiotic] 1 cap PO DAILY 06/25/20 [History] Dowell-3 Fatty Acids/Fish Oil [Fish Oil 1,000 mg Softgel] 2 cap PO DAILY 06/25/20 [History] hydroCHLOROthiazide 25 mg PO DAILY 06/25/20 [History] Ammonium Lactate Lotion [Lac-Hydrin 12% Lotion] 1 applic TOPICAL BID PRN 06/26/20 [History] Cholecalciferol [Vitamin D3 (25 Mcg = 1000 Iu)] 2,000 unit PO DAILY 06/26/20 [H istory] Famotidine 40 mg PO DAILY 06/26/20 [History] Fluticasone Nasal [place] [Flonase Nasal [place]] 1 spr EA NOSTRIL BID 06/26/20 [History] HYDROcodone/APAP 10-325MG [[place] 10-325] 1 tab PO TID PRN 06/26/20 [History] Lidocaine 5% Patch [Lidoderm] 1 patch TOPICAL DAILY 06/26/20 [History] Follow up Appointment(s)/Referral(s): None,Stated [REFERRING] - 1-2 days Discharge Disposition: - Preliminary Cause of Preliminary Cause of : Acute hypoxic resp fx 2nd to acute pulm edema, acute systolic heart fx
== END 2020-06-30 22:54 | disposition expired ==
LOC: EC 22:04 → 2SICU 06-26 00:15
PROVIDERS: ADMIT Internal Medicine Geriatric Medicine; ATTEND Internal Medicine Geriatric Medicine
PROC: 0YHH33Z Insertion of Infusion Device into Right Lower Leg, Percutaneous Approach (ICD-10-PCS; principal; 2020-06-25)
PROC: 0D9670Z Drainage of Stomach with Drainage Device, Via Natural or Artificial Opening (ICD-10-PCS; principal; 2020-06-25)
PROC: 5A12012 Performance of Cardiac Output, Single, Manual (ICD-10-PCS; principal; 2020-06-25)
PROC: 3E0A3GC Introduction of Other Therapeutic Substance into Bone Marrow, Percutaneous Approach (ICD-10-PCS; principal; 2020-06-25)
PROC: 02HV33Z Insertion of Infusion Device into Superior Vena Cava, Percutaneous Approach (ICD-10-PCS; principal; 2020-06-25)
PROC: 3E043XZ Introduction of Vasopressor into Central Vein, Percutaneous Approach (ICD-10-PCS; principal; 2020-06-25)
PROC: 0BH17EZ Insertion of Endotracheal Airway into Trachea, Via Natural or Artificial Opening (ICD-10-PCS; principal; 2020-06-25)
PROC: 5A1955Z Respiratory Ventilation, Greater than 96 Consecutive Hours (ICD-10-PCS; principal; 2020-06-25)
PROC: 4A133B1 Monitoring of Arterial Pressure, Peripheral, Percutaneous Approach (ICD-10-PCS; 2020-06-26)
PROC: 03HY32Z Insertion of Monitoring Device into Upper Artery, Percutaneous Approach (ICD-10-PCS; 2020-06-26)
PROC: 4A133J1 Monitoring of Arterial Pulse, Peripheral, Percutaneous Approach (ICD-10-PCS; 2020-06-26)
PROC: 3E0G76Z Introduction of Nutritional Substance into Upper GI, Via Natural or Artificial Opening (ICD-10-PCS; 2020-06-27)
DX: I46.9 Cardiac arrest, cause unspecified (principal); J96.01 Acute respiratory failure with hypoxia; I21.4 Non-ST elevation (NSTEMI) myocardial infarction; N17.0 Acute kidney failure with tubular necrosis; G93.6 Cerebral edema; R40.2111 Coma scale, eyes open, never, in the field [EMT or ambulance]; R40.2311 Coma scale, best motor response, none, in the field [EMT or ambulance]; R40.2211 Coma scale, best verbal response, none, in the field [EMT or ambulance]; R40.2114 Coma scale, eyes open, never, 24 hours or more after hospital admission; R40.2314 Coma scale, best motor response, none, 24 hours or more after hospital admission; J69.0 Pneumonitis due to inhalation of food and vomit; I50.21 Acute systolic (congestive) heart failure; G93.1 Anoxic brain damage, not elsewhere classified; I42.9 Cardiomyopathy, unspecified; R57.0 Cardiogenic shock; I27.20 Pulmonary hypertension, unspecified; I11.0 Hypertensive heart disease with heart failure; I48.0 Paroxysmal atrial fibrillation; R56.9 Unspecified convulsions; E11.65 Type 2 diabetes mellitus with hyperglycemia; G31.9 Degenerative disease of nervous system, unspecified; Z66 Do not resuscitate; Z51.5 Encounter for palliative care; I44.0 Atrioventricular block, first degree; I08.1 Rheumatic disorders of both mitral and tricuspid valves; I45.4 Nonspecific intraventricular block; K21.9 Gastro-esophageal reflux disease without esophagitis; E78.5 Hyperlipidemia, unspecified; T17.290A Other foreign object in pharynx causing asphyxiation, initial encounter; M15.9 Polyosteoarthritis, unspecified; G47.33 Obstructive sleep apnea (adult) (pediatric); E66.9 Obesity, unspecified; Z68.36 Body mass index [BMI] 36.0-36.9, adult; Z79.82 Long term (current) use of aspirin; Z79.84 Long term (current) use of oral hypoglycemic drugs; Z79.899 Other long term (current) drug therapy; Z87.891 Personal history of nicotine dependence; Z71.3 Dietary counseling and surveillance; Z87.39 Personal history of other diseases of the musculoskeletal system and connective tissue; Z86.711 Personal history of pulmonary embolism; Z98.42 Cataract extraction status, left eye; Z98.41 Cataract extraction status, right eye; Z98.890 Other specified postprocedural states
CPT/HCPCS: 31500; 36415; 36556; 36600; 36680; 70450; 71045; 71275; 80048; 80053; 81001; 82805; 83036; 83735; 83880; 84132; 84484; 85025; 85027; 85610; 85730; 87040; 87070; 87086; 87205; 92950; 93005; 93306; 94002; 94003; 94640; 95816; 96365; 96366; 96375; 99291; 99292